=== PATIENT | male | born 1945 | race Caucasian/White ===

== ENCOUNTER 2017-04-14 16:51 | Inpatient (IN) ==
[2017-04-14] MEDS ORDERED: *HR* FentaNYL (PF) 100 MCG/2 ML VIAL IVP ONE (19:34)
--- NOTE | 2017-04-14 19:42 | Cardiology Consult Note ---
Date of Encounter: 04/14/17 Time of Encounter: 19:37 Assessment and Plan (1) Non-ST elevation AK (NSTEMI) Current Visit: Yes Status: Acute Posterior Ischemia, with recent EKG improved but ongoing CP. Troponin at 8 at [facility]. Discussion w patient/family: The assessment and plan as outlined above was discussed with the patient and/or family members who expressed understanding and agreement. All questions were answered. Thank you for involving us in the care of your patient. Please call with any questions. History of Present Illness Consult date: 04/14/17 Consult reason: NSTEMI Chief complaint: Chest pain History of present illness: Mr. Rosario is a 71 year old male with h/o CAD s/p CABG 2008 at [facility] with unknown grafts presents with CP and posterior EKG changes concerning for ischemia. EKG most recently shows mild improvement with improved ST's. Ongoing CP since 7 30 am today currently at 8/10 on IV NTG loaded with IV Heparin. Pain described as RSCP, heaviness radiating to his interscapular area. 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 He continues on plavix with a remote history of GI Bleed. R/B/A d/w pt and he agrees to proceed to an emergent LHC. Past Med Surg Social Fam HX - Past Medical History Medical history: aortic aneurysm, coronary artery disease, GERD, GI bleed, hypertension, myocardial infarction, peripheral artery disease, thyroid disease Psychiatric history: no psych history - Past Surgical History Surgical History: coronary bypass (CABG), LE Bypass - Social History Smoking Status: Current every day smoker Alcohol use: none Drug use: none Medications and Allergies Allopurinol [Zyloprim] 100 mg PO DAILY #0 01/16/15 [History] Aspirin Enteric Coated [Aspirin EC] 81 mg PO DAILY 01/16/15 [History] Fluticasone Propionate Nasal [Flonase] 2 spray NS DAILY 01/16/15 [History] Ipratropium/Albuterol Neb [Duoneb] 2.5 ml IH Q6HR 01/16/15 [History] Isosorbide MONOnitrate (24 HR) [Imdur] 60 mg PO DAILY #0 01/16/15 [History] clonazePAM [Klonopin] 0.5 mg PO HS #0 01/16/15 [History] Levothyroxine [Synthroid] 75 mcg PO 0630 #0 01/17/15 [History] Montelukast [Singulair] 10 mg PO DAILY 01/17/15 [History] Nitroglycerin 0.4 mg SL Q5M PRN #0 01/17/15 [History] Oxycodone HCl/Acetaminophen [Percocet 10-325 mg Tablet] 1 each PO Q6H PRN #0 [History] Pregabalin [Lyrica] 150 mg PO BID #0 01/17/15 [History] Atorvastatin [Lipitor] 40 mg PO HS 05/17/16 [History] Clopidogrel [Plavix] 75 mg PO DAILY 05/17/16 [History] Memantine HCl 10 mg PO BID 05/17/16 [History] Mirtazapine [Remeron] 30 mg PO HS 05/17/16 [History] Multivitamin [Multi-Day Vitamins] 1 each PO DAILY 05/17/16 [History] Pantoprazole Sodium [Protonix] 40 mg PO DAILY 05/17/16 [History] Trazodone HCl 100 - 200 mg PO HS 05/17/16 [History] 3 Allergy/AdvReac Type Severity Reaction Status Date / Time acetaminophen AdvReac Itching Verified 05/17/16 07:49 [From Darvocet-N] enalaprilat [From Vasotec] AdvReac Weakness Verified 01/16/15 23:43 propoxyphene AdvReac Itching Verified 05/17/16 07:49 [From Darvocet-N] simvastatin [From Zocor] AdvReac Fainting Verified 05/17/16 07:49 All Systems Review: A 10-system review of systems was performed and is negative for pertinent findings except as documented above in the HPI. Physical Examination General: Conversant, No Apparent Distress HEENT: Atraumatic, Normocephaly, Mucus Membranes Moist Neck: No JVD, Normal carotid pulses Cardiac: Reg Rate and Rhythm, Normal S1 and S2, No Murmur Lungs: Normal Breath Sounds, No Wheeze, Rales, Rhonchi Neuro: Alert and responsive, No focal deficits noted Abdomen: Soft, Non-Tender Skin: No rashes noted on visualized skin Musculoskeletal: No Chest Wall Tenderness Extremities: No Clubbing, No Cyanosis, No Edema, Normal Pulses Consult Discharge Plan - Plan Referrals: Minh Pierce MD [Primary Care Provider] -
[2017-04-14] MEDS ORDERED: Tirofiban 12.5 MG/250ML 12.5 MG/250 ML BAG IVC SCH (19:45)
[2017-04-14] MEDS ORDERED: 0.9 % Sodium Chloride 1,000 ML ONE ×2 (19:57→20:25)
[2017-04-14] MEDS ORDERED: Nitroglycerin 1,000 MCG/10 ML VIAL IV ONE (19:58)
[2017-04-14] MEDS ORDERED: Heparin 1,000 UNITS/500 mL NS 500 ML ONE (19:58)
[2017-04-14] MEDS ORDERED: *HR* Heparin 10,000 UNIT/10 ML VIAL ONE (19:58)
[2017-04-14 19:59] LABS: Basophils % 0.4 %; Eosinophils # 0.1 K/mcL (0.0-0.6); Hemoglobin 13.8 g/dL (12.9-16.9); Immature Granulocytes % 0.4 % (0-4); Lymphocytes # 1.8 K/mcL (0.6-4.6); Lymphocytes % 16.6 %; Mean Corpuscular HGB Conc 35.4 g/dL (31.6-35.5); Mean Corpuscular Hemoglobin 32.2 pg (28.0-33.3); Mean Corpuscular Volume 91.1 fL (83.0-100.0); Mean Platelet Volume 9.6 fL (9.4-12.4); Monocytes # 0.6 K/mcL (0.0-1.3); Monocytes % 5.4 %; Neutrophils # 8.4 K/mcL (1.6-8.9); Platelet Count 190 K/mcL (140-400); Red Blood Count 4.28 M/mcL (4.19-5.50); Red Cell Distribution Width 13.2 % (11.5-14.5); Segmented Neutrophils % 76.2 %
[2017-04-14 20:06] LABS: INR 1.2; Prothrombin Time 12.8 Seconds (9.4-12.1)
[2017-04-14] MEDS ORDERED: Ondansetron 4 MG/2 ML VIAL IVP PRN (20:06)
[2017-04-14] MEDS ORDERED: Naloxone 0.4 MG/ML INJ IVP PRN (20:06)
[2017-04-14 20:11] LABS: BUN/Creatinine Ratio 12 (6-26); Blood Urea Nitrogen 11 mg/dL (8-26); Calcium 9.3 mg/dL (8.6-10.8); Carbon Dioxide 27 mEq/L (19-29); Chloride 106 mEq/L (98-109); Glucose 117 mg/dL (70-99); Magnesium 1.8 mg/dL (1.6-2.6); Osmolality,Calculated 294 (280-300); Potassium 3.6 mEq/L (3.5-4.5); Sodium 142 mEq/L (136-145); eGFR For African Americans > 60 (> 60); eGFR For Non-African Americans > 60 (> 60)
--- NOTE | 2017-04-14 20:23 | Pre-Sedation Evaluation ---
Pre-sedation evaluation - Pre-sedation checklist Date of procedure: 04/14/17 Procedure: LHC H&P (including ROS) documented in medical record: Yes Previous reaction to sedatives/anesthetics: No Dietary Status: NPO after Midnight Dentition: dentures removed ASA Classification *see protocol: CLASS II-Mild systemic disease
[2017-04-14] MEDS ORDERED: *HR* FentaNYL (PF) 100 MCG/2 ML VIAL ONE (20:33)
[2017-04-14] MEDS ORDERED: *HR* Midazolam HCl 2 MG/2 ML VIAL ONE (20:33)
[2017-04-14] MEDS ORDERED: *HR* Nitroprusside 50 MG VIAL IVC ONE (20:36)
[2017-04-14] MEDS ORDERED: 0.9 % Sodium Chloride 500 ML ONE (20:39)
[2017-04-14] MEDS ORDERED: Albuterol 2.5 MG/3 ML NEBULIZER IH PRN (20:43)
--- NOTE | 2017-04-14 22:01 | Invasive Diagnostic Lab Proc ---
Name: Juan Diego Rosario Date of Study: 04/14/2017 Date: 1945 Ht: 71.7in Medical Record#: [id number] Age: 71 Wt: 181.88lb Gender: Male BSA: 2.04 Order #: [id number] BMI: 24.91 Physicians Procedure Physician: Julito Conner MD Referring MD: Referring MD: Staff Name Position Time In EmyCordelia RN Monitor 08:32 PM Raj Ko RN Scrub 08:32 PM Jose Mcnair RN Playroom Attendant 08:32 PM Andi Wesley RN Playroom Attendant 08:32 PM Indications Indication Non-Stemi Procedures Performed Procedure L HRT ARTERY/VENTRICLE ANGIO PRQ CARD RANDEE STENT W/ANGIO 1 VSL Pre-Procedure Checklist Informed consent is complete signed and on chart. H&P is on chart. ID band is on and ID verified with patient. Patient NPO for procedure The procedure was described for the patient and questions were answered. Blood Pressure: 152/79 ECG is on chart. Rhythm: NSR Plan of Care Patient will tolerate the procedure without complications. Adequate level of comfort will be maintained. Hemodynamics will remain stable Patient will recover from procedure without complications. Respiratory function will be maintained. Cardiac rhythm will remain stable. Patient temperature will be maintained. Patient and/or family have verbalized understanding of the procedure. Patient Education Intravenous Access Time IV Size Location DC'd Fluid/Drip Rate Units RN 08:20 PM 20g 1 1/4" Patent On Arrival Lt Hand Nitroglycerin 08:20 PM 20g 1 1/4" Patent On Arrival Rt Antecubital 0.9NaCl Allergies VASOTEC, DARVOCET, ZOCOR simvastatin propoxyphene Enalapril acetaminophen enalaprilat Darvocet Zocor Steroids Vital Signs Time BP (mmHg) HR (bpm) O2 Sat. RR (bpm) LOC 08:36 PM / % 5 = Fully awake and oriented or at pre-proc level 08:36 PM / % 4 = Oriented but drowsy 08:51 PM / % 4 = Oriented but drowsy 09:06 PM / % 4 = Oriented but drowsy 09:21 PM / % 4 = Oriented but drowsy 08:31 PM 152 / 79 85 97 % 11 08:35 PM 149 / 96 69 100 % 18 08:40 PM 146 / 96 89 100 % 26 08:45 PM 143 / 101 85 99 % 21 08:50 PM 152 / 91 88 98 % 14 08:56 PM 146 / 95 89 98 % 20 09:00 PM 146 / 98 90 98 % 15 09:05 PM 147 / 97 67 99 % 16 09:11 PM 154 / 93 83 98 % 23 09:16 PM 150 / 103 87 84 % 15 09:21 PM 145 / 96 80 99 % 17 09:26 PM 134 / 95 77 100 % 9 09:30 PM 130 / 99 88 87 % 14 09:36 PM 140 / 85 % Procedural Medications Time Medication Dose Units Method Given By 08:32 PM Oxygen 2 L/min nasal cannula Andi Wesley RN 08:34 PM Versed 1 mg Intravenous Jose Mcnair RN 08:34 PM Fentanyl 25 mcg Intravenous Jose Mcnair RN 08:36 PM Nitroglycerin 55 mcg/min Intravenous 08:39 PM Lidocaine 2% 15 ml Subcutaneous Julito Conner MD 08:41 PM Aggrastat 12.5mg/250ml 15 ml/hr Intravenous Started on the floor 08:53 PM Heparin 3000 units Intravenous Jose Mcnair RN 09:30 PM Plavix 75 mg Orally Jose Mcnair RN ASA Classification: CLASS III- Severe systemic disease (i.e. prior AMI, diabetes with vascular complications, morbid obesity) Ciaran Score Preprocedure Postprocedure Activity 2- Moves 4 extremities sustained head lift Activity 2- Moves 4 extremities sustained head lift Circulation 2- SBP +/= 20 points of pre-anesthetic level Circulation 2- SBP +/= 20 points of pre-anesthetic level Consciousness 2- Awake and alert oriented x 3 Consciousness 2- Awake and alert oriented x 3 O2 Saturation 2- Able to maintain O2 satruation of 92% on room air O2 Saturation 2- Able to maintain O2 satruation of 92% on room air Respiratory 2- Able to deep breathe and cough well Respiratory 2- Able to deep breathe and cough well Total Score 10 Total Score 10 Contrast Agent: Isovue Diagnostic Contrast: 212 ml Total Contrast: 212 ml Fluoro Dose: 1154 mGy Activated Clotting Time Time Seconds to Clot 08:52 PM 166 09:35 PM 247 Procedure Log Time Note Enter By 08:20 PM Sam [facility] astrid [facility] PM Sign in performed according to hospital policy. [email or web address] 08:20 PM Pt arrived to cath lab manager 2 at 20:20 [facility] PM [facility] 20:[facility] PM Procedure start [facility]: [facility] 08: PM CathStat 08:28 PM Case Start 08:28 PM Vitals capture started with the following parameters, Patient=Adult, Interval=5 min, Initial Nhehnzzq=696 mmHg, Deflation Rate=5 mmHg, Cuff placed on Right Arm 08:30 PM Vitals capture started with the following parameters, Patient=Adult, Interval=5 min, Initial Bzemwyyw=853 mmHg, Deflation Rate=5 mmHg, Cuff placed on Right Arm 08:31 PM HR=85 bpm, QKQF=020/79 mmhg, SpO2=97.0 %, Resp=11 B/min, Comment=sb 08:32 PM Time: 20:32 Oxygen on at 2 L/min per nasal cannula by [facility] 08[facility] PM Cordelia Quevedo RN Position: Monitor [facility]: 20:[facility] PM Raj Ko RN Position: Scrub Time in: 20:32 [facility] 08[facility] PM Jose Mcnair RN Position: Playroom Attendant Time in: 20:32 [facility] PM Andi Wesley RN Position: Playroom Attendant Time in: 20:32 [facility] 08:32 PM Case Delayed No, in patient [facility] 08:33 PM Patient charges- Angio tray pack, Navilyst 3mm J, Pulse Oximetry and ACIST tubing and transducer [facility] 08:33 PM Hair removed from procedure site in procedure lab using clippers. Bilateral groin prepped with Chloraprep by Cordelia Quevedo RN, safety strap applied then patient was draped. Skin intact. [facility] 08:34 PM Time: 20:34 Versed 1 mg Intravenous Given by Jose [facility]air RN [facility] 08:35 PM Time: 20:34 Fentanyl 25 mcg Intravenous Given by Jose Mcnair RN [facility] 08:35 PM HR=69 bpm, HPON=444/96 mmhg, PcM3=067.0 %, Resp=18 B/min, Comment=sb 08:36 PM Patient arrived at 20:36 with Nitroglycerin Intravenous drip @ 55 mcg/min [facility] 08[facility] PM Time: 20:36 Patient comfortable and pain free: no. Chest pain 8/10 pt received medication jcallihan 08:36 PM Time: 20:36LOC: 5 = Fully awake and oriented or at pre-proc level [email or web address] 08:36 PM Clinical Presentation: Non-STEMI jcallihan 08:36 PM Time out performed according to hospital policy jcallihan 08:39 PM Time: 20:39 15 ml Lidocaine 2% to right groin Subcutaneous Given by MD pricila Berg 08:40 PM HR=89 bpm, VZQE=031/96 mmhg, SsY0=335.0 %, Resp=26 B/min, Comment=sb 08:41 PM patient arrived from floor with this medication, Time: 20:20 Aggrastat 12.5mg/250ml 15 ml/hr Intravenous Given by Started on the floor Matias pump jctricia 08:45 PM HR=85 bpm, ZGAC=575/101 mmhg, SpO2=99.0 %, Resp=21 B/min, Comment=nsr 08:47 PM Access obtained by percutaneous puncture. 6Fr 10cm Terumo [place] sheath placed in right Femoral artery. [id number] scoates 08:47 PM 5Fr FL 4 catheter inserted over the wire DNC scoates 08:49 PM Catheter removed scoates 08:50 PM 5Fr FL5 catheter inserted over the wire [id number] scoates 08:50 PM HR=88 bpm, NJOQ=054/91 mmhg, SpO2=98.0 %, Resp=14 B/min, Comment=nsr 08:51 PM Recorded Pressure: Ao, HR=78, Condition=Condition 1 (Aorta) Ao 131/82/105 08:51 PM LCA angiography performed in multiple views. scoates 08:51 PM Catheter removed scoates 08:51 PM Time: 20:36 Patient comfortable and pain free: Yes, pt sleeping at this time scoates 08:51 PM Time: 20:36LOC: 4 = Oriented but drowsy scoates 08:51 PM 5Fr FR 4 catheter inserted over the wire DNC scoates 08:52 PM At 20:52 the ACT was 166 seconds. scoates 08:53 PM Time: 20:53 Heparin 3000 units Intravenous Given by Jose Mcnair RN scoates 08:56 PM HR=89 bpm, KBEY=667/95 mmhg, SpO2=98.0 %, Resp=20 B/min, Comment=nsr 08:57 PM SVG to the RPDA, OM and Diag angio performed in multiple views. All grafts occluded. scoates 08:57 PM RCA angiography performed in multiple views. scoates 08:58 PM repostition wire to WRIGHT scoates 09:00 PM HR=90 bpm, YNXC=858/98 mmhg, SpO2=98.0 %, Resp=15 B/min, Comment=nsr 09:01 PM Left WILMER to the LAD angio performed in multiple views. scoates 09:01 PM 5Fr Pigtail catheter inserted over the wire DNC scoates 09:02 PM Recorded Pressure: LV, HR=87, Condition=Condition 1 (Left Ventricle) LV 150/27/34 09:02 PM Catheter selectively placed in left ventricle scoates 09:03 PM Bolus angiogram of left Ventricle complete: 10 ml/sec for a total of 20 mls scoates 09:03 PM Recorded Pressure: LV, Ao, HR=77, Condition=Condition 1 (Left Ventricle) LV 153/9/15, (Aorta) Ao 148/73/106 09:04 PM Catheter removed scoates 09:04 PM PCI Status Urgent scoates 09:04 PM PCI Indication: PCI for high risk Non-STEMI or unstable angina scoates 09:05 PM 6Fr XB3.5 [place] Bright-Tip guide catheter was used to cannulate the PCI vessel successfully. reused? No scoates 09:05 PM HR=67 bpm, GXSF=405/97 mmhg, SpO2=99.0 %, Resp=16 B/min, Comment=nsr 09:06 PM .014 [place] 180cm guide wire across target lesion- successful. reused? No scoates 09:06 PM Time: 20:51 Patient comfortable and pain free: Yes scoates 09:06 PM Time: 20:51LOC: 4 = Oriented but drowsy scoates 09:07 PM Lesion found in Proximal LAD. Pre Stenosis: 100 Pre JEWEL Flow: scoates 09:07 PM Lesion found in Proximal Circumflex. Pre Stenosis: 80 Pre JEWEL Flow: 3: Complete and Brisk Flow/Perfusion scoates 09:08 PM Lesion found in Proximal RCA. Pre Stenosis: 100 Pre JEWEL Flow: scoates 09:11 PM HR=83 bpm, JBCF=965/93 mmhg, SpO2=98.0 %, Resp=23 B/min, Comment=nsr 09:13 PM 2.0 mm x 12 mm Emerge Monorail balloon across target lesion- successful. reused? No scoates 09:14 PM Balloon inflated @ 6 edgardo for 13 seconds scoates 09:14 PM Balloon inflated @ 8 edgardo for 15 seconds scoates 09:14 PM Balloon inflated @ 8 edgardo for 15 seconds scoates 09:14 PM Balloon catheter removed intact. scoates 09:15 PM 2.5 mm x 12 mm Emerge Monorail balloon across target lesion- successful. reused? No scoates 09:15 PM Recorded Pressure: Ao, HR=83, Condition=Condition 1 (Aorta) Ao 132/72/100 09:16 PM HR=87 bpm, IXBP=697/103 mmhg, SpO2=84.0 %, Resp=15 B/min 09:17 PM Balloon inflated @ 8 edgardo for 6 seconds scoates 09:18 PM Balloon inflated @ 8 edgardo for 14 seconds scoates 09:18 PM Balloon inflated @ 8 edgardo for 15 seconds scoates 09:18 PM Balloon catheter removed intact. scoates 09:20 PM 3.0mm x 20mm Synergy drug-eluting stent across target lesion- successful Lot #[id number] scoates 09:21 PM HR=80 bpm, MLWL=055/96 mmhg, SpO2=99.0 %, Resp=17 B/min, Comment=nsr 09:21 PM Stent deployed @ 9 edgardo for 11 seconds scoates 09:21 PM Time: 21:06LOC: 4 = Oriented but drowsy scoates 09:22 PM Time: 21:06 Patient comfortable and pain free: Yes scoates 09:22 PM Stent balloon reinflated @ 13 edgardo for 13 seconds scoates 09:22 PM Recorded Pressure: Ao, HR=82, Condition=Condition 1 (Aorta) Ao 118/85/101 09:23 PM Balloon catheter removed intact. scoates 09:24 PM 3.0 mm x 15mm NC Emerge balloon across target lesion- successful. reused? No scoates 09:25 PM Balloon inflated @ 16 edgardo for 11 seconds scoates 09:25 PM Balloon inflated @ 11 edgardo for 15 seconds scoates 09:26 PM HR=77 bpm, AOJI=263/95 mmhg, IcQ2=700.0 %, Resp=9 B/min, Comment=nsr 09:26 PM Balloon inflated @ 15 edgardo for 8 seconds scoates 09:28 PM Patient is stating that his chest pain is now a zero scoates 09:28 PM Balloon catheter removed intact. scoates 09:28 PM Guide wire removed intact. scoates 09:29 PM Guide catheter removed intact. scoates 09:30 PM Procedure completed at 21:30 scoates 09:30 PM Time: 21:30 Plavix 75 mg Orally Given by Jose Mcnair RN scoates 09:30 PM HR=88 bpm, BFGA=472/99 mmhg, SpO2=87.0 %, Resp=14 B/min, Comment=nsr 09:33 PM Sign out completed: Radiation Dose 1154 mGy Fluoro Time: 14 Isovue 370 - 200ml contrast 212 ml given by Julito Conner MD. Complications: NoneCardiac Rehab Consult needed: YesConfirmed administered medications: Yes scoates 09:33 PM Isovue 370 - 200ml,1 Bottle(s) used. scoates 09:33 PM Sheath left in place to be pulled on floor/holding area scoates 09:33 PM Post ECG NSR scoates 09:33 PM 21:33 Post Pulses Bilateral DP & PT Doppler scoates 09:35 PM At 21:35 the ACT was 247 seconds. scoates 09:35 PM Information taught Cardiac Cath and PCI scoates 09:36 PM UPVK=727/85 mmhg, Comment=nsr 09:36 PM Education needs Procedure and Responsibilities of Patient in Care scoates 09:36 PM Learning barriers :None scoates 09:36 PM Education Methods Verbal scoates 09:36 PM Education evaluation Able to repeat information scoates 09:37 PM Time: 21:22 Patient comfortable and pain free: Yes scoates 09:37 PM Time: 21:21LOC: 4 = Oriented but drowsy scoates 09:37 PM Site status No bleeding/hematoma - Rt Groin as reported by Raj Ko RN at 21:37 scoates 09:37 PM Opsite applied scoates 09:37 PM Plavix, Effient or Brilinta given Yes scoates 09:37 PM Delay to floor No scoates 09:38 PM Family not here at this time. Patient doesnt want us to call anyone scoates 09:39 PM Complications: None scoates 09:39 PM Fluoro Time: 14 scoates 09:39 PM Isovue 370 - 200ml contrast 212 ml given by Julito Conner MD. scoates 09:39 PM Radiation Dose 1154 mGy scoates 09:45 PM voided 275mls scoates 09:48 PM Patient out of room: 21:48 scoates 09:48 PM Report given to Manju LEYVA Pt taken to 2N Room #9. 21:47 scoates 09:54 PM Coronary Dominance: right scoates Complications Complication None None Hemodynamics Pressures Site Systolic/A Wave Diastolic/V Wave Mean AO 131 82 105 LV 150 27 34 LV 153 9 15 AO 148 73 106 AO 132 72 100 AO 118 85 101 Post Procedure Information Rhythm: NSR Post procedural instructions were given Closure Device Time Device Success/Fail 04/14/2017 9:40:00 PM Manual Compression - sheath to be pulled on the floor Site Checks Time Location Status Staff Sheath In? Note 09:37 PM Rt Groin No bleeding/hematoma Raj Ko RN Pulses Time Site Pre-Procedure Post-Procedure Note 04/14/2017 8:49:00 PM Bilateral DP & PT Doppler 9:33:00 PM Bilateral DP & PT Doppler Updated by Jose Mcnair RN on 04/14/2017 9:54:28 PM electronically signed on 04/14/2017 9:55:22 PM with status of Final
--- NOTE | 2017-04-14 22:14 | Internal Med History&Physical ---
Date of Encounter: 04/14/17 Time of Encounter: 22:00 Assessment and Plan (1) Non-ST elevation [place] (NSTEMI) Current visit: Yes Status: Acute Non-ST elevation NJ S/p emergent LHC: Severe one-vessel CAD successful PTCA/RANDEE to proximal circumflex, 1 of 4 patent bypass grafts collaterals from circumflex to distal RCA LVEF 60% Continue Plavix, Lipitor, Nitro PRN, BB, IV Morphine PRN, Aggrastat, Imdur Aspirin was discontinued in the past due to h/o GI bleed EKG - sinus rhythm with PACs, nonspecific ST-T changes Troponin - 13.10 Follow cardiology recommendations Cardiac telemetry, labs in a.m., monitor closely (2) Coronary artery disease Current visit: Yes Status: Chronic Coronary artery disease s/p CABG (2008) and stents Continue Plavix, Lipitor, Nitro PRN Patient states he has been taken off Aspirin due to h/o GI bleed Qualifiers: Coronary Disease-Associated Artery/Lesion type: [place] artery [place] vs. transplanted heart: [place] heart Associated angina: with unstable angina Qualified Code(s): I25.110 - Atherosclerotic heart disease of [place] coronary artery with unstable angina pectoris (3) Peripheral vascular disease Current visit: Yes Status: Chronic Chronic PVD with h/o AAA repair - diminished distal pulses bilateral lower legs Patient states he has not had any stents or surgeries to lower extremities Continue Plavix, Lipitor (4) Hypertension Current visit: Yes Status: Chronic Essential hypertension, uncontrolled, monitor Continue home dose of Imdur, continue IV NTG Qualifiers: Hypertension type: essential hypertension Qualified Code(s): I10 - Essential (primary) hypertension (5) Depression Current visit: Yes Status: Chronic Anxiety with depression, stable Patient is on Remeron, Trazodone and Klonopin at home Qualifiers: Depression Type: major depressive disorder Major depression episode severity: mild Qualified Code(s): F33.0 - Major depressive disorder, recurrent , mild (6) Hypothyroidism Current visit: Yes Status: Chronic Continue home dose of Synthroid Qualifiers: Hypothyroidism type: unspecified Qualified Code(s): E03.9 - Hypothyroidism , unspecified (7) Dementia Current visit: Yes Status: Chronic Mild Alzheimer's dementia without behavioral disturbances Continue home dose of Namenda Qualifiers: Dementia type: Alzheimer's disease Alzheimer's disease onset: early-onset Dementia behavioral disturbance: without behavioral disturbance Qualified Code(s): G30.0 - Alzheimer's disease with early onset; F02.80 - Dementia in other diseases classified elsewhere without behavioral disturbance; F02.80 - Dementia in other diseases classified elsewhere without behavioral disturbance; F02.80 - Dementia in other diseases classified elsewhere without behavioral disturbance (8) Tobacco abuse Current visit: Yes Status: Chronic Patient states he has been smoking about 3-4 cigarettes daily over the past 6 months States he has cut down from half a pack of cigarettes daily for the past 55 years Counseled about cessation, declined nicotine patch (9) DVT prophylaxis Current visit: Yes Status: Acute Patient is currently on Aggrastat Start Heparin subcutaneous in a.m. Internal Medicine - H&P: HPI Chief complaint: Chest pain Admitted From: Emergency Dept Plans for Post Hospital Care: Home History of present illness: Mr. Rosario is a 71 year old male with past medical history of CAD status post CABG and stents, hypertension, dementia, hypothyroidism, hyperlipidemia, PVD, AAA status post repair, anxiety, depression and h/o GI bleed. Patient presents as a transfer from [facility] for chest pain. Examined in the room. Patient is awake and alert. Not in distress. Able to provide all history. No family members at bedside. Patient states he developed chest pain at around 7 AM this morning. Patient states he was at home when the pain started. He describes the pain as dull pressure and tightness. Radiating to his neck. Patient states the chest pain was central and sometimes generalized. Rates it 7/10. Patient also had associated shortness of breath. He denies palpitations or dizziness or headache. Patient denies fever or abdominal pain or vomiting. No aggravating or alleviating factors. No other associated symptoms. No other acute complaints. [facility] had requested hospitalist service for transfer for chest pain and non- STEMI. Troponin was initially 8 and then 13.1, with ongoing chest pain. Cardiology was consulted. Patient underwent emergent LHC. Patient had successful PTCA/DS to proximal circumflex. Status post CABG 1 of 4 patent bypass grafts. Patient is currently on IV NTG and Aggrastat. Patient has been explained about his condition and plan of care in detail. He understood and agreed. No unanswered questions. CODE STATUS full code. Past Med Surg Social Fam HX - Past Medical History Medical history: aortic aneurysm, coronary artery disease, GERD, GI bleed, hypertension, myocardial infarction, peripheral artery disease, thyroid disease Psychiatric history: no psych history - Past Surgical History Surgical History: coronary bypass (CABG), LE Bypass - Social History Smoking Status: Current every day smoker Alcohol use: none Drug use: none Internal Medicine - H&P: Meds Allopurinol [Zyloprim] 100 mg PO DAILY #0 01/16/15 [History] Aspirin Enteric Coated [Aspirin EC] 81 mg PO DAILY 01/16/15 [History] Fluticasone Propionate Nasal [Flonase] 2 spray NS DAILY 01/16/15 [History] Ipratropium/Albuterol Neb [Duoneb] 2.5 ml IH Q6HR 01/16/15 [History] Isosorbide MONOnitrate (24 HR) [Imdur] 60 mg PO DAILY #0 01/16/15 [History] clonazePAM [Klonopin] 0.5 mg PO HS #0 01/16/15 [History] Levothyroxine [Synthroid] 75 mcg PO 0630 #0 01/17/15 [History] Montelukast [Singulair] 10 mg PO DAILY 01/17/15 [History] Nitroglycerin 0.4 mg SL Q5M PRN #0 01/17/15 [History] Oxycodone HCl/Acetaminophen [Percocet 10-325 mg Tablet] 1 each PO Q6H PRN #0 [History] Pregabalin [Lyrica] 150 mg PO BID #0 01/17/15 [History] Atorvastatin [Lipitor] 40 mg PO HS 05/17/16 [History] Clopidogrel [Plavix] 75 mg PO DAILY 05/17/16 [History] Memantine HCl 10 mg PO BID 05/17/16 [History] Mirtazapine [Remeron] 30 mg PO HS 05/17/16 [History] Multivitamin [Multi-Day Vitamins] 1 each PO DAILY 05/17/16 [History] Pantoprazole Sodium [Protonix] 40 mg PO DAILY 05/17/16 [History] Trazodone HCl 100 - 200 mg PO HS 05/17/16 [History] 3 Allergy/AdvReac Type Severity Reaction Status Date / Time acetaminophen AdvReac Itching Verified 05/17/16 07:49 [From Darvocet-N] enalaprilat [From Vasotec] AdvReac Weakness Verified 01/16/15 23:43 propoxyphene AdvReac Itching Verified 05/17/16 07:49 [From Darvocet-N] simvastatin [From Zocor] AdvReac Fainting Verified 05/17/16 07:49 All Systems PM: A 10-system review of systems was performed and is negative for pertinent findings except as documented above in the HPI. - Constitutional Constitutional: fatigue, no fever(s), no weakness - EENT Eyes: no blurry vision - Cardiovascular Cardiovascular ROS IM: chest pain, dyspnea, dyspnea on exertion, no claudication , no edema, no lightheadedness, no orthopnea, no palpitations, no syncope - Respiratory Respiratory: dyspnea, dyspnea on exertion, no cough, no hemoptysis, no wheezing , no chest congestion - Gastrointestinal Gastrointestinal: no abdominal pain, no bloating, no cramping, no diarrhea, no hematemesis, no hematochezia, no loose stools, no nausea, no vomiting - Genitourinary Genitourinary ROS male: no dysuria - Neurological Neurological ROS: no abnormal gait, no confusion, no dizziness, no focal weakness, no loss of vision, no numbness, no tingling - Constitutional General appearance: Present: cooperative, A&O X 3, pleasant, no acute distress, answers questions appropriately - Head Head exam: Present: atraumatic - Eye Eye exam: Present: EOMI - ENT ENT exam: Present: mucous membranes dry - Respiratory Respiratory exam: Present: CTAB. Absent: chest wall tenderness, rales, respiratory distress, rhonchi, wheezes, tachypnea - Cardiovascular Cardiovascular exam: Present: RRR, +S1, +S2 - GI/Abdominal GI/Abdominal exam: Present: soft (Obese). Absent: distended, firm, guarding, tenderness - Extremities Exam Extremities exam: Present: radial pulses palpable and symmetrical. Absent: calf tenderness, cyanotic, pedal edema Additional comments: Left femoral sheath in place. Patient does have PVD and he has diminished distal pulses bilaterally. Both feet are warm to touch. - Neurological Exam Neurological exam: Present: alert, oriented X3, no focal deficits. Absent: facial droop, speech deficit Additional comments: Patient does have mild dementia Internal Med - H&P Results - Labs CBC & Chem 7: 04/14/17 19:53 04/14/17 19:53 Labs: Short CBC 04/14/17 Range/Units 19:53 WBC 11.0 (4.3-11.1) K/mcL Hgb 13.8 (12.9-16.9) g/dL Hct 39.0 (37.5-50.1) % Plt Count 190 (140-400) K/mcL Neutrophils # 8.4 (1.6-8.9) K/mcL BMP 04/14/17 19:53 Sodium 142 Potassium 3.6 Chloride 106 Carbon Dioxide 27 BUN 11 Creatinine 0.91 Glucose 117 H Calcium 9.3 Cardiac Enzymes 04/14/17 Range/Units 19:53 Troponin I 13.10 H* (0-0.03) ng/mL
[2017-04-14] MEDS: Ipratropium/Albuterol Neb 3 ML IH SCH (22:24)
[2017-04-14] MEDS ORDERED: *HR* LORazepam 2 MG/ML VIAL IVP ONE (23:21)
[2017-04-15] MEDS ORDERED: *HR* Atropine Sulfate 1 MG/10 ML SYRINGE ONE (00:51)
[2017-04-15] MEDS ORDERED: Nitroglycerin 25 MG/250 ML INFUS..BTL IVC ONE (01:04)
[2017-04-15] MEDS ORDERED: Nitroglycerin 25 MG/250 ML INFUS..BTL IVC SCH (01:15)
[2017-04-15 02:58] LABS: Basophils % 0.3 %; Eosinophils # 0.1 K/mcL (0.0-0.6); Eosinophils % 0.5 %; Hematocrit 37.6 % (37.5-50.1); Hemoglobin 13.1 g/dL (12.9-16.9); Immature Granulocytes % 0.3 % (0-4); Lymphocytes # 1.3 K/mcL (0.6-4.6); Lymphocytes % 12.4 %; Mean Corpuscular HGB Conc 34.8 g/dL (31.6-35.5); Mean Corpuscular Hemoglobin 31.8 pg (28.0-33.3); Mean Corpuscular Volume 91.3 fL (83.0-100.0); Mean Platelet Volume 9.6 fL (9.4-12.4); Monocytes # 0.6 K/mcL (0.0-1.3); Monocytes % 6.1 %; Neutrophils # 8.3 K/mcL (1.6-8.9); Platelet Count 188 K/mcL (140-400); Red Blood Count 4.12 M/mcL (4.19-5.50); Red Cell Distribution Width 13.2 % (11.5-14.5); Segmented Neutrophils % 80.4 %
[2017-04-15] MEDS: Ipratropium/Albuterol Neb 3 ML IH SCH ×4 (04:35→22:41)
[2017-04-15] MEDS: Multivit/Ca/Min/Fe/FA 1 TAB TABLET PO SCH (07:29)
[2017-04-15] MEDS: Aspirin Enteric Coated 81 MG Tablet PO SCH (08:31)
[2017-04-15] MEDS: Isosorbide MONOnitrate (24 HR) 60 MG TAB.ER.24H PO SCH (08:32)
[2017-04-15] MEDS: Pregabalin 75 MG CAPSULE PO SCH ×2 (08:32→21:08)
--- NOTE | 2017-04-15 08:33 | Internal Med Progress Note ---
Date of Encounter: 04/15/17 Time of Encounter: 08:10 - Constitutional Vitals: Temp Pulse Resp BP Pulse Ox 97.1 F L 88 16 159/93 96 04/15/17 07:33 04/15/17 07:33 04/15/17 07:33 04/15/17 07:33 04/15/17 07:33 General appearance: Present: cooperative, A&O X 3, pleasant, no acute distress, answers questions appropriately Internal Medicine: Result - Labs CBC & Chem 7: 04/15/17 02:28 04/14/17 19:53 Labs: Short CBC 04/14/17 04/15/17 Range/Units 19:53 02:28 WBC 11.0 10.4 (4.3-11.1) K/mcL Hgb 13.8 13.1 (12.9-16.9) g/dL Hct 39.0 37.6 (37.5-50.1) % Plt Count 190 188 (140-400) K/mcL Neutrophils # 8.4 8.3 (1.6-8.9) K/mcL BMP 04/14/17 19:53 Sodium 142 Potassium 3.6 Chloride 106 Carbon Dioxide 27 BUN 11 Creatinine 0.91 Glucose 117 H Calcium 9.3 Cardiac Enzymes 04/14/17 04/15/17 Range/Units 19:53 02:28 Troponin I 13.10 H* 35.02 H* (0-0.03) ng/mL - ABG Interpretation ABG results: PT/INR, D-dimer PT 12.8 Seconds (9.4-12.1) H 04/14/17 19:53 - VTE Documentation of Mechanical Device: Graduated compression elastic hosiery Consult Discharge Plan - Plan Referrals: Minh Pierce MD [Primary Care Provider] -
[2017-04-15] MEDS ORDERED: Pantoprazole 40 MG VIAL IVP SCH (09:00)
[2017-04-15] MEDS: Fluticasone Propionate Nasal 50 MCG/SPRAY BOTTLE NS SCH (09:05)
--- NOTE | 2017-04-15 12:25 | Cardiology Progress Note ---
Date of Encounter: 04/15/17 Time of Encounter: 10:45 Assessment and Plan (1) Non-ST elevation [place] (NSTEMI) Current Visit: Yes Status: Acute Per cardiology: -S/p [facility] yesterday with 100% LAD stenosis, WRIGHT to LAD patent, 80% proximal circumflex stenosis with RANDEE placed, 100% Proximal RCA, SVG to OM occluded, SVG to circumflex occluded, SVG to RCA occluded. -Reports 3/10 chest pain that is worsened with palpation. On nitro drip at 25mcg /min. -On asa, statin, beta corrie, imdur, and plavix. Educated on importance of dual anti-platelet therapy uninterrupted for at least one year. -TTE pending. -ECG today with no acute ischemic changes. -Right groin access site without hematoma. -Patient's significant other and [facility], called requesting to speak with cardiology. I personally spoke to Marnie as well as , at this time patient and significant other have requested transfer to [place] for further evaluation. Discussed with primary service. -Will have films made of [facility] and sent with patient. -Will continue to monitor while patient is at [facility]. Discussion w patient/family: The assessment and plan as outlined above was discussed with the patient and/or family members who expressed understanding and agreement. All questions were answered. Thank you for involving us in the care of your patient. Please call with any questions. Discussed and reviewed with . Subjective Principal diagnosis: NSTEMI Interval history: Patient states has 3/10 chest pain now, states is worse with palpation. Denies shortness of breath. Objective Vital Signs, Last 4 Hours Temp Pulse Resp BP Pulse Ox 04/15/17 11:51 94 04/15/17 11:48 98.7 F 75 20 140/86 90 04/15/17 10:32 122/98 04/15/17 09:07 148/90 General: Conversant, No Apparent Distress HEENT: Atraumatic, Normocephaly, Mucus Membranes Moist Neck: No JVD, Normal carotid pulses Cardiac: Reg Rate and Rhythm, Normal S1 and S2, No Murmur Lungs: Normal Breath Sounds, No Wheeze, Rales, Rhonchi Neuro: Alert and responsive, No focal deficits noted Abdomen: Soft, Non-Tender Skin: No rashes noted on visualized skin, Other (Right groin access site without hematoma. ) Musculoskeletal: Other (Chest pain reproducable with palpation. ) Extremities: No Clubbing, No Cyanosis, No Edema, Normal Pulses Results 04/15/17 02:28 04/14/17 19:53 Lab Results Active Medications Albuterol Sulfate (Proventil Neb) 2.5 mg IH Q2H PRN PRN Reason: Shortness Of Breath/Wheezing Stop: 10/14/17 20:44 Albuterol/Ipratropium (Duoneb) 3 ml IH QIDR MANDIE Stop: 10/14/17 23:01 Last Admin: 04/15/17 11:13 Dose: 3 ml Albuterol/Ipratropium (Duoneb) 3 ml IH [id number] PRN PRN Reason: Shortness Of Breath/WHEEZE Stop: 10/15/17 04:14 Aspirin (Aspirin Ec) 81 mg PO DAILY [facility] Stop: 10/15/17 09:01 Last Admin: 04/15/17 08:31 Dose: 81 mg Atorvastatin Calcium (Lipitor) 40 mg PO HS MANDIE Stop: 10/15/17 21:01 Clonazepam (Klonopin) 0.5 mg PO HS [facility] Stop: 10/15/17 21:01 Clopidogrel Bisulfate (Plavix) 75 mg PO DAILY [facility] Stop: 10/15/17 09:01 Last Admin: 04/15/17 07:29 Dose: 75 mg Fluticasone Propionate (Flonase) 100 mcg NS DAILY MANDIE PRN Reason: Protocol Stop: 10/15/17 09:01 Last Admin: 04/15/17 09:05 Dose: 100 mcg Nitroglycerin (Nitroglycerin Premix 25 Mg/250 Ml) 25 mg in 250 mls @ 3 mls/hr IVC .Q24H MANDIE; 5 MCG/MIN PRN Reason: Protocol Stop: 10/15/17 01:16 Last Titration: 04/15/17 02:23 Dose: 25 mcg/min, 15 mls/hr Isosorbide Mononitrate (Imdur) 60 mg PO DAILY MANDIE Stop: 10/15/17 09:01 Last Admin: 04/15/17 08:32 Dose: 60 mg Levothyroxine Sodium (Synthroid) 75 mcg PO 0630 MANDIE Stop: 06/11/18 06:31 Last Admin: 04/15/17 06:58 Dose: 75 mcg Memantine (Namenda) 10 mg PO BID [facility] Stop: 10/15/17 09:01 Last Admin: 04/15/17 07:29 Dose: 10 mg Metoprolol Tartrate (Lopressor) 25 mg PO BID [facility] Stop: 10/15/17 09:01 Last Admin: 04/15/17 06:58 Dose: 25 mg Mirtazapine (Remeron) 30 mg PO HS [facility] Stop: 10/15/17 21:01 Montelukast Sodium (Singulair) 10 mg PO DAILY [facility] Stop: 10/15/17 09:01 Last Admin: 04/15/17 07:29 Dose: 10 mg Multivitamins/Calcium (Thera M Plus) 1 tab PO DAILY [facility] Stop: 10/15/17 09:01 Last Admin: 04/15/17 07:29 Dose: 1 tab Naloxone HCl (Narcan) 0.4 mg IVP Q2MIN PRN PRN Reason: Opioid Reversal Stop: 10/14/17 20:07 Nitroglycerin (Nitroglycerin) 0.4 mg SL Q5M PRN PRN Reason: Chest Pain Stop: 10/15/17 04:14 Omeprazole (Prilosec) 40 mg PO DAILY [facility] Stop: 10/15/17 09:01 Last Admin: 04/15/17 08:32 Dose: 40 mg Ondansetron HCl (Zofran) 4 mg IVP Q8HR PRN PRN Reason: Nausea And Vomiting Stop: 10/14/17 20:07 Oxycodone/Acetaminophen (Percocet 10/325) 1 each PO Q6H PRN PRN Reason: Mild Pain Stop: 10/15/17 08:03 Pregabalin (Lyrica) 150 mg PO BID [facility] Stop: 10/15/17 09:01 Last Admin: 04/15/17 08:32 Dose: 150 mg Trazodone HCl (Trazodone) 100 mg PO HS [facility] Stop: 10/15/17 21:01 Laboratory Tests 04/14/17 04/14/17 04/15/17 19:53 19:53 02:28 Hgb Creatinine 0.91 Troponin I 13.10 H* 35.02 H* 04/15/17 04/15/17 02:28 08:14 Hgb 13.1 Creatinine Troponin I 48.79 H* - Imaging and Cardiology Echo: pending Cardiac cath: report reviewed - EKG Interpretation EKG results cardiology: personally reviewed (ECG today with SR, HR 69.), other ( Telemetry reviewed with average HR previous 12 hours noted to be 77, sinus rhythm. PVCs and PACs noted.) - VTE Documentation of Mechanical Device: Graduated compression elastic hosiery Consult Discharge Plan - Plan Referrals: Minh Pierce MD [Primary Care Provider] -
--- NOTE | 2017-04-15 12:42 | Discharge Summary ---
Date of Encounter: 04/15/17 Time of Encounter: 08:15 - Discharge Diagnosis (1) Non-ST elevation [place] (NSTEMI) Priority: Primary Status: Acute (2) Coronary artery disease Priority: Secondary Status: Chronic Qualifiers: Coronary Disease-Associated Artery/Lesion type: bypass graft [place] vs. transplanted heart: [place] heart Associated angina: with unstable angina Qualified Code(s): I25.700 - Atherosclerosis of coronary artery bypass graft(s) , unspecified, with unstable angina pectoris (3) Tobacco abuse Priority: Secondary Status: Chronic (4) Hx of CABG Priority: Secondary Status: Chronic (5) Hypothyroidism Priority: Secondary Status: Chronic Qualifiers: Hypothyroidism type: acquired Qualified Code(s): E03.9 - Hypothyroidism, unspecified (6) Hypertension Priority: Secondary Status: Chronic Qualifiers: Hypertension type: essential hypertension Qualified Code(s): I10 - Essential (primary) hypertension (7) Peripheral vascular disease Priority: Secondary Status: Chronic (8) Depression Priority: Secondary Status: Chronic Qualifiers: Depression Type: major depressive disorder Major depression recurrence: recurrent Active/Remission status: currently active Major depression episode severity: mild Qualified Code(s): F33.0 - Major depressive disorder, recurrent, mild (9) Dementia Priority: Secondary Status: Chronic Qualifiers: Dementia type: Alzheimer's disease Alzheimer's disease onset: early-onset Dementia behavioral disturbance: without behavioral disturbance Qualified Code(s): G30.0 - Alzheimer's disease with early onset; F02.80 - Dementia in other diseases classified elsewhere without behavioral disturbance; F02.80 - Dementia in other diseases classified elsewhere without behavioral disturbance; F02.80 - Dementia in other diseases classified elsewhere without behavioral disturbance - Discharge Medications Home Medications: Allopurinol [Zyloprim] 100 mg PO DAILY #0 01/16/15 [History] Aspirin Enteric Coated [Aspirin EC] 81 mg PO DAILY 01/16/15 [History] Fluticasone Propionate Nasal [Flonase] 2 spray NS DAILY 01/16/15 [History] Isosorbide MONOnitrate (24 HR) [Imdur] 60 mg PO DAILY #0 01/16/15 [History] clonazePAM [Klonopin] 0.5 mg PO HS #0 01/16/15 [History] Levothyroxine [Synthroid] 75 mcg PO 0630 #0 01/17/15 [History] Montelukast [Singulair] 10 mg PO DAILY 01/17/15 [History] Nitroglycerin 0.4 mg SL Q5M PRN #0 01/17/15 [History] Oxycodone HCl/Acetaminophen [Percocet 10-325 mg Tablet] 1 each PO Q6H PRN #0 [History] Pregabalin [Lyrica] 150 mg PO BID #0 01/17/15 [History] Atorvastatin [Lipitor] 40 mg PO HS 05/17/16 [History] Clopidogrel [Plavix] 75 mg PO DAILY 05/17/16 [History] Memantine HCl 10 mg PO BID 05/17/16 [History] Mirtazapine [Remeron] 30 mg PO HS 05/17/16 [History] Multivitamin [Multi-Day Vitamins] 1 each PO DAILY 05/17/16 [History] Pantoprazole Sodium [Protonix] 40 mg PO DAILY 05/17/16 [History] Trazodone HCl 100 - 200 mg PO HS 05/17/16 [History] Tizanidine HCl [Tizanidine HCl] 4 mg PO Q8H 04/15/17 [History] Allergies/Adverse Reactions: 3 Allergy/AdvReac Type Severity Reaction Status Date / Time acetaminophen AdvReac Itching Verified 04/15/17 09:56 [From Darvocet-N] enalaprilat [From Vasotec] AdvReac Weakness Verified 04/15/17 09:56 propoxyphene AdvReac Itching Verified 04/15/17 09:56 [From Darvocet-N] simvastatin [From Zocor] AdvReac Fainting Verified 04/15/17 09:56 Procedures/tests Complete & Pending: Procedures Performed prior 72 hours Category Date Time Status CL Cardiac Catheterization [CL] Routine Manager Cardiology 04/14/17 19:59 Completed EKG [ECG 12 lead ECG] [ECG] Stat Y 04/15/17 08:12 Completed EV echocardiogram Routine Y 04/15/17 11:00 Completed Date of admission: 04/14/17 18:39 Primary care physician: Minh Pierce MD Consults: 04/14/17 20:41 Consult to Cardiology [CONS] Routine Comment: Consulting Provider: Cardiology Mary Reason for Consult: NSTEMI Time Notified: 20:41 Call Completed: Yes 04/15/17 08:20 Consult to Cardiac Rehabilitation-Phase1 [CONS] Routine Comment: Reason for Consult: nstemi Call Completed: No Discharging clinician: Cj Ewing Anticipated date of discharge: 04/15/17 - Discharge Instructions Follow Up With: Minh Pierce MD [Primary Care Provider] - Hospital course: Mr. Rosario is a 72 year old male - Time Spent with Patient Total time spent providing and/or coordinating discharge services: - Constitutional Vitals: Temp Pulse Resp BP Pulse Ox 98.7 F 75 20 140/86 94 04/15/17 11:48 04/15/17 11:48 04/15/17 11:48 04/15/17 11:48 04/15/17 11:51 General appearance: Present: cooperative, A&O X 3, pleasant, no acute distress, answers questions appropriately - VTE Documentation of Mechanical Device: Graduated compression elastic hosiery
--- NOTE | 2017-04-15 12:55 | Internal Med Progress Note ---
Date of Encounter: 04/15/17 Time of Encounter: 12:51 - Assessment and plan (1) Non-ST elevation [place] (NSTEMI) Current Visit: Yes Status: Acute Assessment and plan: S/P stent placement yesterday. On DAP therapy. Continue medical management at this time. (2) Coronary artery disease Current Visit: Yes Status: Chronic Assessment and plan: Medical management at this time. Qualifiers: Coronary Disease-Associated Artery/Lesion type: bypass graft [place] vs. transplanted heart: [place] heart Associated angina: with unstable angina Qualified Code(s): I25.700 - Atherosclerosis of coronary artery bypass graft(s) , unspecified, with unstable angina pectoris (3) Tobacco abuse Current Visit: Yes Status: Chronic Assessment and plan: Cessation counselling. (4) Hx of CABG Current Visit: No Status: Chronic (5) Hypothyroidism Current Visit: Yes Status: Chronic Assessment and plan: Continue thyroid supplement. Qualifiers: Hypothyroidism type: acquired Qualified Code(s): E03.9 - Hypothyroidism, unspecified (6) Hypertension Current Visit: Yes Status: Chronic Assessment and plan: BP has been uncontrolled. Nitro drip weaned and PO started. Continue to monitor BP. May need increase in metoprolol or imdur again. Qualifiers: Hypertension type: essential hypertension Qualified Code(s): I10 - Essential (primary) hypertension (7) Peripheral vascular disease Current Visit: Yes Status: Chronic Assessment and plan: Chronic issue (8) Depression Current Visit: Yes Status: Chronic Assessment and plan: Chronic issue Qualifiers: Depression Type: major depressive disorder Major depression recurrence: recurrent Active/Remission status: currently active Major depression episode severity: mild Qualified Code(s): F33.0 - Major depressive disorder, recurrent, mild (9) Dementia Current Visit: Yes Status: Chronic Assessment and plan: Chronic issue. Continue meds. Qualifiers: Dementia type: Alzheimer's disease Alzheimer's disease onset: early-onset Dementia behavioral disturbance: without behavioral disturbance Qualified Code(s): G30.0 - Alzheimer's disease with early onset; F02.80 - Dementia in other diseases classified elsewhere without behavioral disturbance; F02.80 - Dementia in other diseases classified elsewhere without behavioral disturbance; F02.80 - Dementia in other diseases classified elsewhere without behavioral disturbance - Subjective Interval history: Mr Rosario is currently admitted for acute NSTEMI. He is s/p cath and stent placement. He remains moderate to high risk due to potential for worsening cardiac status. Mr Rosario had some reproducible chest pain this AM. It seems to be better at this time. It is his birthday and he is eating the cake from dietary. No SOB at this time. No nausea and vomiting. BP has been but slowly improving today. PO nitro resumed and drip to be stopped. Significant other Marnie (ARTI) has called floor multiple times and is concerned about the cath yesterday. She wanted him transferred and says he wants to go. Arrangements made but patient has told 3 people he does not want to go and he feels OK. Transfer cancelled. - Constitutional Vitals: Temp Pulse Resp BP Pulse Ox 98.7 F 75 20 140/86 94 04/15/17 11:48 04/15/17 11:48 04/15/17 11:48 04/15/17 11:48 04/15/17 11:51 General appearance: Present: cooperative, A&O X 3, pleasant, answers questions appropriately - Head Head exam: Present: atraumatic, normocephalic - Eye Eye exam: Present: EOMI, conjuntiva pink - ENT ENT exam: Present: mucous membranes moist - Respiratory Respiratory exam: Present: decreased breath sounds, CTAB. Absent: rales, rhonchi, wheezes - Cardiovascular Cardiovascular exam: Present: RRR. Absent: tachycardia - GI/Abdominal GI/Abdominal exam: Present: normal bowel sounds, soft. Absent: tenderness - Extremities Exam Extremities exam: Present: warm. Absent: tenderness - Neurological Exam Neurological exam: Present: alert, oriented X3 - Skin Skin exam: Present: dry, warm. Absent: rash Internal Medicine: Result - Labs CBC & Chem 7: 04/15/17 02:28 04/14/17 19:53 Labs: Short CBC 04/14/17 04/15/17 Range/Units 19:53 02:28 WBC 11.0 10.4 (4.3-11.1) K/mcL Hgb 13.8 13.1 (12.9-16.9) g/dL Hct 39.0 37.6 (37.5-50.1) % Plt Count 190 188 (140-400) K/mcL Neutrophils # 8.4 8.3 (1.6-8.9) K/mcL BMP 04/14/17 19:53 Sodium 142 Potassium 3.6 Chloride 106 Carbon Dioxide 27 BUN 11 Creatinine 0.91 Glucose 117 H Calcium 9.3 Cardiac Enzymes 04/14/17 04/15/17 04/15/17 Range/Units 19:53 02:28 08:14 Troponin I 13.10 H* 35.02 H* 48.79 H* (0-0.03) ng/mL - ABG Interpretation ABG results: PT/INR, D-dimer PT 12.8 Seconds (9.4-12.1) H 04/14/17 19:53 - VTE Documentation of Mechanical Device: Graduated compression elastic hosiery Consult Discharge Plan - Plan Referrals: Minh Pierce MD [Primary Care Provider] -
[2017-04-15 13:19] LABS: BUN/Creatinine Ratio 10 (6-26); Blood Urea Nitrogen 11 mg/dL (8-26); Carbon Dioxide 28 mEq/L (19-29); Chloride 103 mEq/L (98-109); Glucose 127 mg/dL (70-99); Osmolality,Calculated 293 (280-300); Potassium 3.8 mEq/L (3.5-4.5); Sodium 141 mEq/L (136-145); eGFR For African Americans > 60 (> 60); eGFR For Non-African Americans > 60 (> 60)
[2017-04-15] MEDS ORDERED: Ibuprofen 400 MG TABLET PO PRN (16:27)
[2017-04-15] MEDS: amLODIPine 5 MG TABLET PO SCH (16:37)
[2017-04-15] MEDS: clonazePAM 0.5 MG TABLET PO SCH (21:08)
[2017-04-15] MEDS: Mirtazapine 15 MG TABLET PO SCH (21:08)
[2017-04-15] MEDS: *HR* OxyCODONE/APAP 10/325 TABLET PO PRN (21:09)
[2017-04-15] MEDS: traZODone 50 MG TABLET PO SCH (21:09)
[2017-04-16 02:30] LABS: Hematocrit 38.4 % (37.5-50.1); Hemoglobin 13.7 g/dL (12.9-16.9); Mean Corpuscular HGB Conc 35.7 g/dL (31.6-35.5); Mean Corpuscular Volume 89.7 fL (83.0-100.0); Mean Platelet Volume 9.8 fL (9.4-12.4); Platelet Count 159 K/mcL (140-400); Red Blood Count 4.28 M/mcL (4.19-5.50); Red Cell Distribution Width 13.2 % (11.5-14.5)
[2017-04-16 02:41] LABS: BUN/Creatinine Ratio 12 (6-26); Blood Urea Nitrogen 11 mg/dL (8-26); Calcium 8.7 mg/dL (8.6-10.8); Carbon Dioxide 28 mEq/L (19-29); Chloride 103 mEq/L (98-109); Glucose 152 mg/dL (70-99); Magnesium 1.7 mg/dL (1.6-2.6); Osmolality,Calculated 296 (280-300); Potassium 3.2 mEq/L (3.5-4.5); Sodium 142 mEq/L (136-145); eGFR For African Americans > 60 (> 60); eGFR For Non-African Americans > 60 (> 60)
[2017-04-16] MEDS: Ipratropium/Albuterol Neb 3 ML IH SCH ×4 (03:55→22:00)
[2017-04-16] MEDS: Aspirin Enteric Coated 81 MG Tablet PO SCH (08:20)
[2017-04-16] MEDS: amLODIPine 5 MG TABLET PO SCH (08:20)
[2017-04-16] MEDS: Pregabalin 75 MG CAPSULE PO SCH (08:20)
[2017-04-16] MEDS: Multivit/Ca/Min/Fe/FA 1 TAB TABLET PO SCH (08:20)
[2017-04-16] MEDS: Isosorbide MONOnitrate (24 HR) 60 MG TAB.ER.24H PO SCH (08:20)
[2017-04-16] MEDS: Fluticasone Propionate Nasal 50 MCG/SPRAY BOTTLE NS SCH (08:21)
[2017-04-16] MEDS ORDERED: 0.9 % Sodium Chloride 1,000 ML ONE (09:42)
[2017-04-16 09:48] LABS: ABG Base Excess 3 mEq/L (-2 to 3); ABG HCO3 27 mEq/L (21-27); ABG Oxygen Saturation 93 % (95-98); ABG PCO2 40 mmHg (35-45); ABG PH 7.44 pH Units (7.32-7.45); ABG PO2 66 mmHg (85-104); ABG TCO2 29 mEq/L (20-26)
[2017-04-16] MEDS ORDERED: Potassium Chloride 40 MEQ, Lidocaine 1% 2 ML in D5% in Water 500 ML IVPB ONE (10:05)
[2017-04-16] MEDS ORDERED: 0.9 % Sodium Chloride 500 ML IVC ONE (10:12)
--- NOTE | 2017-04-16 10:20 | Event Note ---
<Dyana Powers - Last Filed: 04/16/17 10:20> Date of Encounter: 04/16/17 Time of Encounter: 09:35 at 0932, cardiology nurse practitioner informed hospitalist service that patient was very slow to respond. stat accucheck was measured at 230. patient was sating at 97% on 4L. Patient did not respond to sternal rub and his pupils remained constricted. He received one time dose of .4mg narcan. He became incontinent and had loose stool. Stat CT head ordered. stat ABG was unremarkable. 1L bolus ordered. Patient responded to narcan and was alert but remained very drowsy. C.Diff toxin ordered, along with prolactin and lactic acid. <Cj Ewing - Last Filed: 04/16/17 12:35> Date of Encounter: 04/16/17 I was present at the time and agree with plan of care.
--- NOTE | 2017-04-16 11:24 | Cardiology Progress Note ---
Date of Encounter: 04/16/17 Time of Encounter: 09:30 Assessment and Plan (1) Non-ST elevation [place] (NSTEMI) Current Visit: Yes Status: Acute Per cardiology: -S/p LHC yesterday with 100% LAD stenosis, WRIGHT to LAD patent, 80% proximal circumflex stenosis with RANDEE placed, 100% Proximal RCA, SVG to OM occluded, SVG to circumflex occluded, SVG to RCA occluded. -On asa, statin, beta corrie, imdur, and plavix. Educated on importance of dual anti-platelet therapy uninterrupted for at least one year. -TTE with LVEF 60%, mild diastolic dysufnction, all wall segments with normal motion. -ECG yesterday with no acute ischemic changes. -Patient with episode this morning of decreased responsiveness. Leukocytosis noted, stool positive for C.Diff. CT with no acute intracranial abnormalities. Hemoglobin stable. -Will repeat limited TTE to rule out cardiac cause of decreased responsiveness. -Will continue to monitor. Discussion w patient/family: The assessment and plan as outlined above was discussed with the patient who expressed understanding and agreement. All questions were answered. Thank you for involving us in the care of your patient. Please call with any questions. Discussed and reviewed with . Subjective Principal diagnosis: NSTEMI Interval history: Upon entering room, patient sitting in chair slumped over. Patient's coloring zeng. Patient slow to respond. Notified patient's primary nurse and hospitalist team, see hospitalist event note. Objective Vital Signs, Last 4 Hours Temp Pulse Resp BP Pulse Ox 04/16/17 11:18 99.8 F H 79 16 119/75 96 General: Other (Slow to respond. ) HEENT: Atraumatic, Normocephaly, Mucus Membranes Moist Neck: No JVD, Normal carotid pulses Cardiac: Reg Rate and Rhythm, Normal S1 and S2, No Murmur Lungs: Other (Inspiratory wheezes noted throughout. ) Neuro: Other (Slow to respond. ) Abdomen: Soft, Non-Tender Skin: No rashes noted on visualized skin Musculoskeletal: No Chest Wall Tenderness Extremities: No Clubbing, No Cyanosis, No Edema, Other (1+ blateral palpable pedal pulses. ) Results 04/16/17 02:23 04/16/17 02:23 Lab Results Impressions Echocardiogram 04/15/17 11:00 Impressions: LVEF 60%. Mild left ventricular diastolic dysfunction. Normal right ventricular structure and function. No significant valvular dysfunction. Estimated RVSP was 20 mmHg. No pulmonary hypertension. Left Ventricular Wall Motion: Rest Echo Findings All wall segments showed normal motion. Findings: Study Quality * Technically adequate exam. ECG Findings * Normal sinus rhythm. Left Ventricle * LVEF 60%. * Mild left ventricular diastolic dysfunction. Right Ventricle * Normal right ventricular structure and function. Left Atrium * Normal left atrial size. Right Atrium * Normal right atrial size. Interatrial Septum * No evidence of PFO by color Doppler. Aortic Valve * Aortic valve not well visualized. * No aortic regurgitation. * No aortic stenosis. Mitral Valve * Normal mitral valve structure and function. Tricuspid Valve * Mild tricuspid regurgitation. Pulmonic Valve * Pulmonic valve not well visualized. Aorta * Normally sized aortic root. Pericardium * The pericardium appears normal. IVC * Normal IVC dimensions and inspiratory collapse. Head CT 04/16/17 09:39 IMPRESSION: No acute intracranial abnormality. D/ : / 04/16/2017 11:06:17 Emil Clark MD / myao Interpreting Provider: Emil Clark MD Active Medications Albuterol Sulfate (Proventil Neb) 2.5 mg IH Q2H PRN PRN Reason: Shortness Of Breath/Wheezing Stop: 10/14/17 20:44 Albuterol/Ipratropium (Duoneb) 3 ml IH QIDR [facility] Stop: 10/14/17 23:01 Last Admin: 04/16/17 09:52 Dose: 3 ml Albuterol/Ipratropium (Duoneb) 3 ml IH [id number] PRN PRN Reason: Shortness Of Breath/WHEEZE Stop: 10/15/17 04:14 Amlodipine Besylate (Norvasc) 5 mg PO DAILY MANDIE PRN Reason: Protocol Stop: 10/15/17 16:31 Last Admin: 04/16/17 08:20 Dose: 5 mg Aspirin (Aspirin Ec) 81 mg PO DAILY [facility] Stop: 10/15/17 09:01 Last Admin: 04/16/17 08:20 Dose: 81 mg Atorvastatin Calcium (Lipitor) 40 mg PO HS [facility] Stop: 10/15/17 21:01 Last Admin: 04/15/17 21:08 Dose: 40 mg Clonazepam (Klonopin) 0.5 mg PO HS MANDIE Stop: 10/15/17 21:01 Last Admin: 04/15/17 21:08 Dose: 0.5 mg Clopidogrel Bisulfate (Plavix) 75 mg PO DAILY MANDIE Stop: 10/15/17 09:01 Last Admin: 04/16/17 08:20 Dose: 75 mg Fluticasone Propionate (Flonase) 100 mcg NS DAILY MANDIE PRN Reason: Protocol Stop: 10/15/17 09:01 Last Admin: 04/16/17 08:21 Dose: 100 mcg Potassium Chloride 40 meq/ (Lidocaine 2 ml/ Dextrose) 522 mls @ 130.5 mls/hr IVPB ONCE ONE Stop: 04/16/17 14:04 Metronidazole (Flagyl Premix 500 Mg/100 Ml) 500 mg in 100 mls @ 100 mls/hr IVPB Q8HR MANDIE Stop: 10/16/17 16:01 Ibuprofen (Motrin) 200 mg PO Q6HR PRN; Protocol PRN Reason: FEVER/PAIN Stop: 10/15/17 16:28 Isosorbide Mononitrate (Imdur) 60 mg PO DAILY MANDIE Stop: 10/15/17 09:01 Last Admin: 04/16/17 08:20 Dose: 60 mg Levothyroxine Sodium (Synthroid) 75 mcg PO 0630 MANDIE Stop: 10/15/17 06:31 Last Admin: 04/16/17 07:11 Dose: 75 mcg Memantine (Namenda) 10 mg PO BID MANDIE Stop: 10/15/17 09:01 Last Admin: 04/16/17 08:20 Dose: 10 mg Metoprolol Tartrate (Lopressor) 25 mg PO BID MANDIE Stop: 10/15/17 09:01 Last Admin: 04/16/17 08:20 Dose: 25 mg Mirtazapine (Remeron) 30 mg PO HS MANDIE Stop: 10/15/17 21:01 Last Admin: 04/15/17 21:08 Dose: 30 mg Montelukast Sodium (Singulair) 10 mg PO DAILY MANDIE Stop: 10/15/17 09:01 Last Admin: 04/16/17 08:20 Dose: 10 mg Multivitamins/Calcium (Thera M Plus) 1 tab PO DAILY MANDIE Stop: 10/15/17 09:01 Last Admin: 04/16/17 08:20 Dose: 1 tab Naloxone HCl (Narcan) 0.4 mg IVP Q2MIN PRN PRN Reason: Opioid Reversal Stop: 10/14/17 20:07 Last Admin: 04/16/17 09:40 Dose: 0.4 mg Nitroglycerin (Nitroglycerin) 0.4 mg SL Q5M PRN PRN Reason: Chest Pain Stop: 10/15/17 04:14 Omeprazole (Prilosec) 40 mg PO DAILY MANDIE Stop: 10/15/17 09:01 Last Admin: 04/16/17 08:20 Dose: 40 mg Ondansetron HCl (Zofran) 4 mg IVP Q8HR PRN PRN Reason: Nausea And Vomiting Stop: 10/14/17 20:07 Oxycodone/Acetaminophen (Percocet 10/325) 1 each PO Q6H PRN PRN Reason: Mild Pain Stop: 10/15/17 08:03 Last Admin: 04/15/17 21:09 Dose: 1 each Trazodone HCl (Trazodone) 100 mg PO HS MANDIE Stop: 10/15/17 21:01 Last Admin: 04/15/17 21:09 Dose: 100 mg Laboratory Tests 04/15/17 04/16/17 04/16/17 02:28 02:23 02:23 WBC 10.4 12.1 H Hgb 13.1 13.7 Creatinine 0.95 - Imaging and Cardiology Chest Xray: report reviewed Echo: pending, report reviewed Cardiac cath: report reviewed - EKG Interpretation EKG results cardiology: other (Telemetry reviewed with average HR previous 12 hours noted to be 84, sinus rhythm. PVCS and PACS noted.) - VTE Documentation of Mechanical Device: Graduated compression elastic hosiery Consult Discharge Plan - Plan Referrals: Minh Pierce MD [Primary Care Provider] - 04/23/17 11:30 am
--- NOTE | 2017-04-16 11:59 | Internal Med Progress Note ---
<Nina Lawson - Last Filed: 04/16/17 15:55> Date of Encounter: 04/16/17 Time of Encounter: 10:00 - Assessment and plan (1) Non-ST elevation [place] (NSTEMI) Current Visit: Yes Status: Acute Assessment and plan: s/p [facility] (04/14/17)--100% LAD stenosis, WRIGHT to LAD patent, 80% proximal circ stenosis with RANDEE placed, 100% Proximal RCA, 3 of 4 saphenous vein graphs occluded 04/16/17 Limited echo--LVEF 50%, low normal LV systolic function, not all wall segments well visualized Plan: Continue dual anti-platelet therapy Continue medical management with ASA, statin, BB, imdur, plavix (2) Unresponsive episode Current Visit: Yes Status: Acute Assessment and plan: Etiology unclear at this time--CT head negative for acute intracranial abnormality Prolactin elevated @ 49.22 Plan: Limited echo pending EEG for tomorrow (3) Coronary artery disease Current Visit: Yes Status: Chronic Assessment and plan: Continue medical management with dual antiplatelet therapy, statin, BB, imdur Qualifiers: Coronary Disease-Associated Artery/Lesion type: bypass graft [place] vs. transplanted heart: [place] heart Associated angina: with unstable angina Qualified Code(s): I25.700 - Atherosclerosis of coronary artery bypass graft(s) , unspecified, with unstable angina pectoris (4) C. difficile diarrhea Current Visit: Yes Status: Acute Assessment and plan: Stool + for C. diff toxin B Plan: Continue flagyl 500mg PO BID (day 1) (5) Hx of CABG Current Visit: No Status: Chronic Assessment and plan: Saphenous vein grafts x 3 Internal mammary graft x 1 (6) Hypothyroidism Current Visit: Yes Status: Chronic Assessment and plan: Continue synthroid Qualifiers: Hypothyroidism type: acquired Qualified Code(s): E03.9 - Hypothyroidism, unspecified (7) Hypertension Current Visit: Yes Status: Chronic Assessment and plan: BP 139/79 this AM Plan: Monitor blood pressures Continue imdur 60mg PO daily Continue lopressor 25mg PO BID Qualifiers: Hypertension type: essential hypertension Qualified Code(s): I10 - Essential (primary) hypertension (8) Peripheral vascular disease Current Visit: Yes Status: Chronic (9) Depression Current Visit: Yes Status: Chronic Qualifiers: Depression Type: major depressive disorder Major depression recurrence: recurrent Active/Remission status: currently active Major depression episode severity: mild Qualified Code(s): F33.0 - Major depressive disorder, recurrent, mild (10) Dementia Current Visit: Yes Status: Chronic Assessment and plan: Continue memantine Qualifiers: Dementia type: Alzheimer's disease Alzheimer's disease onset: early-onset Dementia behavioral disturbance: without behavioral disturbance Qualified Code(s): G30.0 - Alzheimer's disease with early onset; F02.80 - Dementia in other diseases classified elsewhere without behavioral disturbance; F02.80 - Dementia in other diseases classified elsewhere without behavioral disturbance; F02.80 - Dementia in other diseases classified elsewhere without behavioral disturbance (11) Tobacco abuse Current Visit: Yes Status: Chronic Assessment and plan: Cessation counselling - Subjective Interval history: Patient seen and examined today at bedside, he is sitting up in bed getting ready to eat lunch. Patient is in NAD and has no complaints at time of exam. He denies chest pain, dyspnea, fever, chills, nausea, abdominal pain. - Constitutional Vitals: Temp Pulse Resp BP Pulse Ox 99.8 F H 79 16 119/75 96 04/16/17 11:18 04/16/17 11:18 04/16/17 11:18 04/16/17 11:18 04/16/17 11:18 General appearance: Present: cooperative, A&O X 3, answers questions appropriately - Head Head exam: Present: atraumatic, normocephalic - Neck Neck exam general surgery: Present: full ROM, supple - Respiratory Respiratory exam: Present: decreased breath sounds, CTAB. Absent: respiratory distress - Cardiovascular Cardiovascular exam: Present: RRR, +S1, +S2. Absent: diastolic murmur, systolic murmur - GI/Abdominal GI/Abdominal exam: Present: soft. Absent: guarding, rebound, rigid, tenderness - Extremities Exam Extremities exam: Absent: pedal edema, tenderness Additional comments: DP pulses equal bilaterally - Neurological Exam Neurological exam: Present: alert, oriented X3, no focal deficits. Absent: facial droop, speech deficit Internal Medicine: Result - Labs CBC & Chem 7: 04/16/17 02:23 04/16/17 02:23 Labs: Short CBC 04/16/17 Range/Units 02:23 WBC 12.1 H (4.3-11.1) K/mcL Hgb 13.7 (12.9-16.9) g/dL Hct 38.4 (37.5-50.1) % Plt Count 159 (140-400) K/mcL BMP 04/15/17 04/16/17 12:45 02:23 Sodium 141 142 Potassium 3.8 3.2 L Chloride 103 103 Carbon Dioxide 28 28 BUN 11 11 Creatinine 1.10 0.95 Glucose 127 H 152 H Calcium 9.0 8.7 - ABG Interpretation ABG results: ABG ABG pH 7.44 pH Units (7.32-7.45) 04/16/17 09:42 ABG pCO2 40 mmHg (35-45) 04/16/17 09:42 ABG pO2 66 mmHg (85-104) L 04/16/17 09:42 ABG O2 Saturation 93 % (95-98) L 04/16/17 09:42 PT/INR, D-dimer PT 12.8 Seconds (9.4-12.1) H 04/14/17 19:53 - Impressions Impressions Echocardiogram 04/15/17 11:00 Impressions: LVEF 60%. Mild left ventricular diastolic dysfunction. Normal right ventricular structure and function. No significant valvular dysfunction. Estimated RVSP was 20 mmHg. No pulmonary hypertension. Left Ventricular Wall Motion: Rest Echo Findings All wall segments showed normal motion. Findings: Study Quality * Technically adequate exam. ECG Findings * Normal sinus rhythm. Left Ventricle * LVEF 60%. * Mild left ventricular diastolic dysfunction. Right Ventricle * Normal right ventricular structure and function. Left Atrium * Normal left atrial size. Right Atrium * Normal right atrial size. Interatrial Septum * No evidence of PFO by color Doppler. Aortic Valve * Aortic valve not well visualized. * No aortic regurgitation. * No aortic stenosis. Mitral Valve * Normal mitral valve structure and function. Tricuspid Valve * Mild tricuspid regurgitation. Pulmonic Valve * Pulmonic valve not well visualized. Aorta * Normally sized aortic root. Pericardium * The pericardium appears normal. IVC * Normal IVC dimensions and inspiratory collapse. Head CT 04/16/17 09:39 IMPRESSION: No acute intracranial abnormality. D/ / 04/16/2017 11:06:17 Emil Clark MD / mayo Interpreting Provider: Emil Clark MD - VTE Documentation of Mechanical Device: Graduated compression elastic hosiery Consult Discharge Plan - Plan Referrals: matt, Cardiology [Other] (Office will call patient at home with follow up appointment) Minh Pierce MD [Primary Care Provider] - 04/23/17 11:30 am <Cj Ewing - Last Filed: 04/16/17 17:30> Date of Encounter: 04/16/17 - Assessment and plan (1) Unresponsive episode Current Visit: Yes Status: Acute (2) C. difficile diarrhea Current Visit: Yes Status: Acute (3) Non-ST elevation [place] (NSTEMI) Current Visit: Yes Status: Acute (4) Coronary artery disease Current Visit: Yes Status: Chronic Qualifiers: Coronary Disease-Associated Artery/Lesion type: bypass graft [place] vs. transplanted heart: [place] heart Associated angina: with unstable angina Qualified Code(s): I25.700 - Atherosclerosis of coronary artery bypass graft(s) , unspecified, with unstable angina pectoris (5) Tobacco abuse Current Visit: Yes Status: Chronic (6) Hx of CABG Current Visit: No Status: Chronic (7) Hypothyroidism Current Visit: Yes Status: Chronic Qualifiers: Hypothyroidism type: acquired Qualified Code(s): E03.9 - Hypothyroidism, unspecified (8) Hypertension Current Visit: Yes Status: Chronic Qualifiers: Hypertension type: essential hypertension Qualified Code(s): I10 - Essential (primary) hypertension (9) Peripheral vascular disease Current Visit: Yes Status: Chronic (10) Depression Current Visit: Yes Status: Chronic Qualifiers: Depression Type: major depressive disorder Major depression recurrence: recurrent Active/Remission status: currently active Major depression episode severity: mild Qualified Code(s): F33.0 - Major depressive disorder, recurrent, mild (11) Dementia Current Visit: Yes Status: Chronic Qualifiers: Dementia type: Alzheimer's disease Alzheimer's disease onset: early-onset Dementia behavioral disturbance: without behavioral disturbance Qualified Code(s): G30.0 - Alzheimer's disease with early onset; F02.80 - Dementia in other diseases classified elsewhere without behavioral disturbance; F02.80 - Dementia in other diseases classified elsewhere without behavioral disturbance; F02.80 - Dementia in other diseases classified elsewhere without behavioral disturbance - Constitutional Vitals: Temp Pulse Resp BP Pulse Ox 98.9 F 79 17 121/62 95 04/16/17 16:16 04/16/17 16:16 04/16/17 16:16 04/16/17 16:16 04/16/17 16:16 Internal Medicine: Result - Labs CBC & Chem 7: 04/16/17 02:23 04/16/17 02:23 Labs: Short CBC 04/16/17 Range/Units 02:23 WBC 12.1 H (4.3-11.1) K/mcL Hgb 13.7 (12.9-16.9) g/dL Hct 38.4 (37.5-50.1) % Plt Count 159 (140-400) K/mcL BMP 04/16/17 02:23 Sodium 142 Potassium 3.2 L Chloride 103 Carbon Dioxide 28 BUN 11 Creatinine 0.95 Glucose 152 H Calcium 8.7 Urine 04/16/17 Range/Units 16:35 Urine Color Dark Yellow (Yellow) Urine Clarity Clear (Clear) Urine pH 6.0 (5.0-8.0) pH Units Ur Specific [place] > 1.030 H (1.010-1.025) Urine Protein 100 H (Neg-Trace) mg/dL Urine Glucose (UA) 250 H (Normal) mg/dL - ABG Interpretation ABG results: ABG ABG pH 7.44 pH Units (7.32-7.45) 04/16/17 09:42 ABG pCO2 40 mmHg (35-45) 04/16/17 09:42 ABG pO2 66 mmHg (85-104) L 04/16/17 09:42 ABG O2 Saturation 93 % (95-98) L 04/16/17 09:42 PT/INR, D-dimer PT 12.8 Seconds (9.4-12.1) H 04/14/17 19:53 - Impressions Impressions Head CT 04/16/17 09:39 IMPRESSION: No acute intracranial abnormality. D/ : / 04/16/2017 11:06:17 Emil Clark MD / mayo Interpreting Provider: Emil Clark MD Echocardiogram Limited Views 04/16/17 10:22 Impressions: LVEF 50%. Low normal LV systolic function. Not all wall segments were well visualized. Asymmetric basal septal hypertrophy. Left Ventricular Wall Motion: Rest Echo Findings The mid anterior lateral and basal anterior lateral ruiz were not visualized. All other wall segments showed normal motion. Findings: Study Quality * Technically adequate exam. ECG Findings * Normal sinus rhythm. Left Ventricle * Asymmetric basal septal hypertrophy. * LVEF 50%. Right Ventricle * RV is not well evaluated on this limited study. - Attending Attestation I examined this patient and my medical decision-making was reviewed with the Resident Physician on 04/16/17. I agree with the documented findings, disposition and treatment plan as described except to the extent set forth below. Mr Rosario has been admitted for acute NSTEMI and is s/p stent placement. He had unresponsive episode this AM and has had low grade temp. He remains moderate to high risk due to potential for worsening cardiac and clinical status. Mr Rosario had episode of unresponsiveness in chair today. SBP was 101 when back to bed. He was warm to touch and slowly improved. Stool returned positive for C diff and he said he was hospitalized 3 weeks ago for same issue. Cultures done. No CP or SOB at this time. Exam Alert. comfortable now. Mucus membranes dry Heart reg Lungs diminished but clear Abd soft and nontender No edema I/P 1. Unresponsive - most likely was hypotensive as BP was low when flat in bed. Returned to baseline at this point. Suspect related to c diff. 2. C diff colitis - present on admission as patient has been here less than 48 hours and had recent treatment. 3. NSTEMI Further diagnoses and plan as above.
[2017-04-16] MEDS ORDERED: MetroNIDAZOLE 500 MG/100 ML 500 MG/100 ML BAG IVPB SCH (12:00)
--- NOTE | 2017-04-16 15:04 | Electrocardiograph Report ---
[place] [address] Test Date: 2017-04-14 Pat Name: Juan Diego Rosario Department: 110 Room: 2N09 Gender: M Plan Manager: CAREY : 1945 Requested By: Cj Ewing Order Number: [id number] Reading MD: Mike Morales Measurements Intervals [place] Rate: 61 P: 68 [place]: 164 QRS: -73 QRSD: 100 T: 108 QT: 433 QTc: 435 Interpretive Statements SINUS RHYTHM WITH OCCASIONAL SUPRAVENTRICULAR PREMATURE COMPLEXES INFERIOR MYOCARDIAL INFARCTION, PROBABLY OLD NONSPECIFIC T WAVE CHANGES Electronically Signed On 04-16-2017 15:02:16 EST by Mike Morales
--- NOTE | 2017-04-16 15:17 | Electrocardiograph Report ---
[address] [place], [place] [address] Test Date: 2017-04-15 Pat Name: Juan Diego Rosario Department: 110 Room: 2N09 Gender: M Railroad Operating Engineer: : 1945 Requested By: Cj Ewing Order Number: [id number] Reading MD: Mike Morales Measurements Intervals [place] Rate: 69 P: 67 MO: 170 QRS: -76 QRSD: 91 T: 110 QT: 420 QTc: 439 Interpretive Statements SINUS RHYTHM LOW QRS VOLTAGE IN EXTREMITY LEADS INFERIOR MYOCARDIAL INFARCTION Electronically Signed On 04-16-2017 15:15:42 EST by Mike Morales
[2017-04-16 16:55] LABS: Bilirubin,Urine Small (Negative); Blood,Urine Moderate (Negative); Clarity,Urine Clear (Clear); Color,Urine Dark Yellow (Yellow); Glucose,Urine (UA) 250 mg/dL (Normal); Ketones,Urine Negative (Negative); Leukocyte Esterase,Urine Negative (Negative); Nitrite,Urine Positive (Negative); Protein,Urine 100 mg/dL (Neg-Trace); Specific Gravity,Urine > 1.030 (1.010-1.025); Urobilinogen,Urine Normal (Normal)
[2017-04-16 16:56] LABS: Bacteria,Urine None Seen per hpf (None-Few); Hyaline Casts,Urine None Seen per lpf (None-Few); Squamous Epithelial Cell,Urine Moderate per lpf (None-Few); WBC,Urine 0-3 per hpf (0-3)
[2017-04-16] MEDS: metroNIDAZOLE 500 MG TABLET PO SCH (20:59)
[2017-04-16] MEDS: clonazePAM 0.5 MG TABLET PO SCH (21:00)
[2017-04-16] MEDS: Mirtazapine 15 MG TABLET PO SCH (21:00)
[2017-04-16] MEDS: traZODone 50 MG TABLET PO SCH (21:00)
[2017-04-17] MEDS: metroNIDAZOLE 500 MG TABLET PO SCH ×3 (03:21→21:06)
[2017-04-17] MEDS: Ipratropium/Albuterol Neb 3 ML IH SCH ×4 (03:48→22:24)
[2017-04-17 06:51] LABS: Basophils % 0.3 %; Eosinophils # 0.2 K/mcL (0.0-0.6); Eosinophils % 1.9 %; Hematocrit 34.4 % (37.5-50.1); Immature Granulocytes % 0.4 % (0-4); Lymphocytes % 20.4 %; Mean Corpuscular HGB Conc 34.9 g/dL (31.6-35.5); Mean Corpuscular Hemoglobin 31.8 pg (28.0-33.3); Mean Corpuscular Volume 91.2 fL (83.0-100.0); Mean Platelet Volume 10.3 fL (9.4-12.4); Monocytes # 0.9 K/mcL (0.0-1.3); Monocytes % 8.9 %; Neutrophils # 6.8 K/mcL (1.6-8.9); Platelet Count 141 K/mcL (140-400); Red Blood Count 3.77 M/mcL (4.19-5.50); Red Cell Distribution Width 13.2 % (11.5-14.5); Segmented Neutrophils % 68.1 %
[2017-04-17 06:54] LABS: BUN/Creatinine Ratio 17 (6-26); Blood Urea Nitrogen 18 mg/dL (8-26); Calcium 8.6 mg/dL (8.6-10.8); Carbon Dioxide 27 mEq/L (19-29); Chloride 106 mEq/L (98-109); Glucose 131 mg/dL (70-99); Magnesium 1.5 mg/dL (1.6-2.6); Osmolality,Calculated 298 (280-300); Phosphorous 2.3 mg/dL (2.3-4.7); Potassium 3.4 mEq/L (3.5-4.5); Sodium 142 mEq/L (136-145); eGFR For African Americans > 60 (> 60); eGFR For Non-African Americans > 60 (> 60)
--- NOTE | 2017-04-17 08:53 | Neurology - Consult Note ---
Date of Encounter: 04/19/17 Time of Encounter: 07:45 Assessment and Plan (1) Unresponsive episode Current Visit: Yes Status: Resolved This patient who apparently has multiple medical conditions along with C. difficile colitis apparently had an episode of unresponsiveness without any focal motor lateralizing sign of his stroke on his examination at the same time CT of the head was negative for any acute abnormality. No focal deficit noted on his exam. Rare possibility that it could be a seizure but certainly sounds more like syncopal episode we will get an EEG also check for under lying metabolic abnormalities, and particularly check his vitamin B12 folate and TSH levels and make sure it is all therapeutic keep the patient well-hydrated is quite possible that it could be related to orthostatic or perhaps hypoperfusion No indication to start him on any anti-seizure medication Follow up on the EEG when it is completed (2) Dementia Current Visit: Yes Status: Chronic Qualifiers: Dementia type: Alzheimer's disease Alzheimer's disease onset: early-onset Dementia behavioral disturbance: without behavioral disturbance Qualified Code(s): G30.0 - Alzheimer's disease with early onset; F02.80 - Dementia in other diseases classified elsewhere without behavioral disturbance; F02.80 - Dementia in other diseases classified elsewhere without behavioral disturbance; F02.80 - Dementia in other diseases classified elsewhere without behavioral disturbance History of Present Illness HPI: Mr. Rosario is a 72 year old male was been admitted with multiple medical conditions including C. difficile had an episode earlier of unresponsiveness while he was sitting in the chair was not responsive for about 15-20 minutes and then came back to his baseline status CT scan did not show any acute abnormality, patient is back to his baseline Past Med Surg Social Fam HX - Past Medical History Medical history: aortic aneurysm, coronary artery disease, GERD, GI bleed, hypertension, myocardial infarction, peripheral artery disease, thyroid disease Psychiatric history: no psych history - Past Surgical History Surgical History: coronary bypass (CABG), LE Bypass - Social History Smoking Status: Current every day smoker Alcohol use: none Drug use: none - Family History Brother Name: GERDA Family Member Ethnicity: Non- Living Status: Age at : 35 Cause of : DC Hx Family Cardiac Disorders: Yes Hx Family Respiratory Disorders: No Hx Family Cancer: Yes Hx Family GI Disorders: No Hx Family Genitourinary Disorders: No Hx Family Endocrine Disorder: Yes (MOTHER DM) Hx Family Musculoskeletal Disorders: No Hx Family Neuromuscular Disorders: No Hx Family Neurologic Disorders: No Hx Family HEENT Disorders: No Hx Family Autoimmune Disorders: No Hx Family Reproductive Disorders: No Hx Family Psychosocial Disorders: No Hx Family Medical Disorders: Yes Medications and Allergies Allopurinol [Zyloprim] 100 mg PO DAILY #0 01/16/15 [History] Aspirin Enteric Coated [Aspirin EC] 81 mg PO DAILY 01/16/15 [History] Fluticasone Propionate Nasal [Flonase] 2 spray NS DAILY 01/16/15 [History] Isosorbide MONOnitrate (24 HR) [Imdur] 60 mg PO DAILY #0 01/16/15 [History] clonazePAM [Klonopin] 0.5 mg PO HS #0 01/16/15 [History] Levothyroxine [Synthroid] 75 mcg PO 0630 #0 01/17/15 [History] Montelukast [Singulair] 10 mg PO DAILY 01/17/15 [History] Nitroglycerin 0.4 mg SL Q5M PRN #0 01/17/15 [History] Oxycodone HCl/Acetaminophen [Percocet 10-325 mg Tablet] 1 each PO Q6H PRN #0 [History] Pregabalin [Lyrica] 150 mg PO BID #0 01/17/15 [History] Atorvastatin [Lipitor] 40 mg PO HS 05/17/16 [History] Clopidogrel [Plavix] 75 mg PO DAILY 05/17/16 [History] Memantine HCl 10 mg PO BID 05/17/16 [History] Mirtazapine [Remeron] 30 mg PO HS 05/17/16 [History] Multivitamin [Multi-Day Vitamins] 1 each PO DAILY 05/17/16 [History] Pantoprazole Sodium [Protonix] 40 mg PO DAILY 05/17/16 [History] Trazodone HCl 100 - 200 mg PO HS 05/17/16 [History] Tizanidine HCl [Tizanidine HCl] 4 mg PO Q8H 04/15/17 [History] 3 Allergy/AdvReac Type Severity Reaction Status Date / Time acetaminophen AdvReac Itching Verified 04/15/17 09:56 [From Darvocet-N] enalaprilat [From Vasotec] AdvReac Weakness Verified 04/15/17 09:56 propoxyphene AdvReac Itching Verified 04/15/17 09:56 [From Darvocet-N] simvastatin [From Zocor] AdvReac Fainting Verified 04/15/17 09:56 All Systems: A 10-system review of systems was performed and is negative for pertinent findings except as documented above in the HPI. Physical Examination - Vital Signs Vital Signs: Initial Vital Signs Pulse 83 04/14/17 20:00 - Constitutional General appearance: comfortable - Neurologic Detailed motor examination: full strength in all major muscle groups Motor examination - right side: 5/5: deltoids, biceps, triceps, wrist flexion, wrist extension, pin puller, hip flexors, tibialis Anterior, quadriceps, toe extension (EHL), plantarflexion Motor examination - left side: 5/5: deltoids, biceps, triceps, wrist flexion, wrist extension, hip flexors, pin puller, quadriceps, tibialis Anterior, toe extension (EHL), plantarflexion Reflexes: Biceps: 1+, Triceps: 1+, Brachioradialis: 1+, Patella: 1+, Achilles: 1 + Mental Status Examination: awake, alert, oriented to person, oriented to place, oriented to time, follows commands appropriately, answers questions appropriately, no agnosia, no aphasia, no aproxia Cranial nerve examination: PERRL, EOMI, visual moses intact, corneal reflexes brisk symmetrically, sensory to face intact, mastication intact, no facial asymmetry is present, no dysarthria, hearing is intact symmetrically, soft palate elevates bilaterally upon phonation, gag reflex intact, flexes SCM and trapezius muscles symmetrically with full power, tongue protrudes midline, no atrophy or facial fasiculations present Cerebellar examination: no dysmetria, performs finger to nose and heel to gutierrez symmetrically without ataxia, no gait ataxia, no truncal ataxia, no difficulty with rapid alternating movements Results - Laboratory Findings CBC and BMP: 04/19/17 03:26 04/19/17 04:01 Abnormal lab findings: Abnormal lab results RBC 3.77 M/mcL (4.19-5.50) L 04/17/17 06:26 Hgb 12.0 g/dL (12.9-16.9) L D 04/17/17 06:26 Hct 34.4 % (37.5-50.1) L 04/17/17 06:26 PT 12.8 Seconds (9.4-12.1) H 04/14/17 19:53 ABG pO2 66 mmHg (85-104) L 04/16/17 09:42 ABG Total CO2 29 mEq/L (20-26) H 04/16/17 09:42 ABG O2 Saturation 93 % (95-98) L 04/16/17 09:42 Potassium 3.4 mEq/L (3.5-4.5) L 04/17/17 06:26 Glucose 131 mg/dL (70-99) H 04/17/17 06:26 POC Glucose 230 (58-89) H 04/16/17 09:39 Magnesium 1.5 mg/dL (1.6-2.6) L 04/17/17 06:26 Troponin I 48.79 ng/mL (0-0.03) H* 04/15/17 08:14 Triglycerides 154 mg/dL (< 150) H 04/15/17 02:28 VLDL Cholesterol, Calc 31 mg/dL (< 31) H 04/15/17 02:28 HDL Cholesterol 31 mg/dL (40-59) L 04/15/17 02:28 Prolactin 49.22 ng/mL (3.46-19.40) H 04/16/17 09:42 Ur Specific [place] > 1.030 (1.010-1.025) H 04/16/17 16:35 Urine Protein 100 mg/dL (Neg-Trace) H 04/16/17 16:35 Urine Glucose (UA) 250 mg/dL (Normal) H 04/16/17 16:35 Urine Blood Moderate (Negative) H 04/16/17 16:35 Urine Nitrite Positive (Negative) A 04/16/17 16:35 Urine Bilirubin Small (Negative) H 04/16/17 16:35 Urine Microscopic RBC 5-15 per hpf (0-3) H 04/16/17 16:35 Ur Squamous Epith Cells Moderate per lpf (None-Few) H 04/16/17 16:35 Ur Culture Indicated? YES (NO) A 04/16/17 16:35 Consult Discharge Plan - Plan Referrals: matt, Cardiology [Other] (Office will call patient at home with follow up appointment) Minh Pierce MD [Primary Care Provider] - 04/23/17 11:30 am
[2017-04-17] MEDS: Fluticasone Propionate Nasal 50 MCG/SPRAY BOTTLE NS SCH (09:25)
[2017-04-17] MEDS: Isosorbide MONOnitrate (24 HR) 60 MG TAB.ER.24H PO SCH (09:26)
[2017-04-17] MEDS: amLODIPine 5 MG TABLET PO SCH (09:26)
[2017-04-17] MEDS: Aspirin Enteric Coated 81 MG Tablet PO SCH (09:26)
[2017-04-17] MEDS: Multivit/Ca/Min/Fe/FA 1 TAB TABLET PO SCH (09:26)
[2017-04-17] MEDS ORDERED: Potassium Chloride Elixir 20 MEQ/15 ML UDC PO ONE (10:23)
[2017-04-17 11:33] LABS: Thyroid Stimulating Hormone 0.818 mcIU/mL (0.350-4.840)
--- NOTE | 2017-04-17 11:34 | EEG/EMG/Oth Biometrics Report ---
EEG Procedure Report Date of procedure: 04/17/17 EEG Procedure: Routine EEG Procedure Note: Routine 18-channel digital EEG was obtained to rule out any seizure activity or focal abnormalities. FINDINGS: Background rhythm during awake stage shows well-organized, well- developed, average voltage 8 to 9 hertz alpha activity in the posterior regions. It blocks with eye opening and it is bilaterally synchronous and symmetrical. No [id number] discharges or any lateralizing abnormalities are seen. Photic stimulation did not produce any abnormalities. Hyperventilation was not performed. No abnormalities were found during the procedure. Intermittent EMG artifacts were seen. Stage II sleep was not achieved. IMPRESSION: low amplitude Normal awake study. No epileptiform discharges or any other paroxysmal activities or focal abnormalities seen. Clinical correlation is recommended.
[2017-04-17 12:45] LABS: Folate 11.2 ng/mL (7.0-31.4)
[2017-04-17] MEDS ORDERED: Cyanocobalamin (B-12) 1,000 MCG/ML VIAL IM ONE ×2 (13:49→14:15)
[2017-04-17] MEDS ORDERED: 0.9 % Sodium Chloride 1,000 ML IVC SCH (15:30)
[2017-04-17] MEDS: Folic Acid 1 MG TABLET PO SCH (15:46)
[2017-04-17] MEDS: Nitroglycerin 0.4 MG TAB.SUBL SL PRN ×3 (17:45→17:57)
[2017-04-17] MEDS: Nitroglycerin 1 INCH/GM PACKET TP SCH (18:08)
--- NOTE | 2017-04-17 18:48 | Event Note ---
Date of Encounter: 04/17/17 Time of Encounter: 18:15 I examined this patient and my medical decision-making was reviewed with the Resident Physician on 04/17/17. I agree with the documented findings, disposition and treatment plan as described except to the extent set forth below. Mr Rosario is currently admitted for acute NSTEMI. He also has acute C diff diarrhea which was present on admission. He remains moderate to high risk due to potential for worsening clinical status. Mr Rosario was doing OK this AM. No fever or chills. No further diarrhea. He developed chest pain this evening and had EKG changes consistent with ischemia. He was given nitro and paste started. CTA of chest ordered. He has improved at this time. Exam Alert. Comfortable now. Mucus membranes dry Heart reg - tachy Lungs clear Chest pain reproducible Abd soft EKG anterior ST depression noted. I/P 1. [place] - nitro given. CTA ordered Troponin ordered. 2. C diff diarrhea 3. NSTEMI Further diagnoses and plan as per progress note of this date.
[2017-04-17] MEDS: clonazePAM 0.5 MG TABLET PO SCH (21:06)
[2017-04-17] MEDS: traZODone 50 MG TABLET PO SCH (21:07)
[2017-04-17] MEDS: Mirtazapine 15 MG TABLET PO SCH (21:07)
--- NOTE | 2017-04-17 21:54 | Internal Med Progress Note ---
<Nina Lawson - Last Filed: 04/17/17 21:52> Date of Encounter: 04/17/17 Time of Encounter: 10:00 - Assessment and plan (1) Unresponsive episode Current Visit: Yes Status: Resolved Assessment and plan: Etiology unclear at this time--CT head negative for acute intracranial abnormality Prolactin elevated @ 49.22 No further reported episodes Echo showed EF of 50% on 04/16/17 EEG initial reading was wnl. No seizure activity Plan: Neuro consulted, appreciate recommendations Recommend TSH, B12, folate levels. Pending (2) Non-ST elevation [place] (NSTEMI) Current Visit: Yes Status: Acute Assessment and plan: s/p LHC (04/14/17)--100% LAD stenosis, WRIGHT to LAD patent, 80% proximal circ stenosis with RANDEE placed, 100% Proximal RCA, 3 of 4 saphenous vein graphs occluded 04/16/17 Limited echo--LVEF 50%, low normal LV systolic function, not all wall segments well visualized Plan: Continue dual anti-platelet therapy Continue medical management with ASA, statin, BB, imdur, plavix (3) Coronary artery disease Current Visit: Yes Status: Chronic Assessment and plan: Continue medical management with dual antiplatelet therapy, statin, BB, imdur Qualifiers: Coronary Disease-Associated Artery/Lesion type: bypass graft [place] vs. transplanted heart: [place] heart Associated angina: with unstable angina Qualified Code(s): I25.700 - Atherosclerosis of coronary artery bypass graft(s) , unspecified, with unstable angina pectoris (4) C. difficile diarrhea Current Visit: Yes Status: Acute Assessment and plan: Stool + for C. diff toxin B Plan: Continue flagyl 500mg PO BID (day 2) (5) Hx of CABG Current Visit: No Status: Chronic Assessment and plan: Saphenous vein grafts x 3 Internal mammary graft x 1 (6) Hypothyroidism Current Visit: Yes Status: Chronic Assessment and plan: Continue synthroid Qualifiers: Hypothyroidism type: acquired Qualified Code(s): E03.9 - Hypothyroidism, unspecified (7) Hypertension Current Visit: Yes Status: Chronic Assessment and plan: BP 114/75 this AM Plan: Monitor blood pressures Continue imdur 60mg PO daily Continue lopressor 25mg PO BID Qualifiers: Hypertension type: essential hypertension Qualified Code(s): I10 - Essential (primary) hypertension (8) Peripheral vascular disease Current Visit: Yes Status: Chronic Assessment and plan: Chronic issue. Management as outpatient (9) Depression Current Visit: Yes Status: Chronic Assessment and plan: Chronic issue. Management as outpatient. Stable. Qualifiers: Depression Type: major depressive disorder Major depression recurrence: recurrent Active/Remission status: currently active Major depression episode severity: mild Qualified Code(s): F33.0 - Major depressive disorder, recurrent, mild (10) Dementia Current Visit: Yes Status: Chronic Assessment and plan: Continue memantine Qualifiers: Dementia type: Alzheimer's disease Alzheimer's disease onset: early-onset Dementia behavioral disturbance: without behavioral disturbance Qualified Code(s): G30.0 - Alzheimer's disease with early onset; F02.80 - Dementia in other diseases classified elsewhere without behavioral disturbance; F02.80 - Dementia in other diseases classified elsewhere without behavioral disturbance; F02.80 - Dementia in other diseases classified elsewhere without behavioral disturbance (11) Tobacco abuse Current Visit: Yes Status: Chronic Assessment and plan: Cessation counselling - Subjective Interval history: Patient seen and examined today at bedside, he is resting comfortably in bed. Patient has no complaints at time of exam and states he feels better than he did yesterday. He denies chest pain, dyspnea, fever, chills, nausea, abdominal pain. - Constitutional Vitals: Temp Pulse Resp BP Pulse Ox 98.6 F 108 22 151/95 90 04/17/17 18:58 04/17/17 18:58 04/17/17 18:58 04/17/17 18:58 04/17/17 15:58 General appearance: Present: cooperative, A&O X 3, answers questions appropriately - Head Head exam: Present: atraumatic, normocephalic - Neck Neck exam general surgery: Present: full ROM, supple - Respiratory Respiratory exam: Present: decreased breath sounds, wheezes (bilaterally). Absent: accessory muscle use, respiratory distress - Cardiovascular Cardiovascular exam: Present: RRR, +S1, +S2. Absent: diastolic murmur, systolic murmur - GI/Abdominal GI/Abdominal exam: Present: normal bowel sounds, soft. Absent: distended, guarding, rebound, rigid, tenderness - Neurological Exam Neurological exam: Present: alert, oriented X3, no focal deficits. Absent: facial droop, speech deficit Internal Medicine: Result - Labs CBC & Chem 7: 04/17/17 06:26 04/17/17 06:26 Labs: Short CBC 04/17/17 Range/Units 06:26 WBC 9.9 (4.3-11.1) K/mcL Hgb 12.0 L D (12.9-16.9) g/dL Hct 34.4 L (37.5-50.1) % Plt Count 141 (140-400) K/mcL Neutrophils # 6.8 (1.6-8.9) K/mcL BMP 04/17/17 06:26 Sodium 142 Potassium 3.4 L Chloride 106 Carbon Dioxide 27 BUN 18 Creatinine 1.08 Glucose 131 H Calcium 8.6 Cardiac Enzymes 04/17/17 Range/Units 19:23 Troponin I 12.69 H* (0-0.03) ng/mL - ABG Interpretation ABG results: ABG ABG pH 7.44 pH Units (7.32-7.45) 04/16/17 09:42 ABG pCO2 40 mmHg (35-45) 04/16/17 09:42 ABG pO2 66 mmHg (85-104) L 04/16/17 09:42 ABG O2 Saturation 93 % (95-98) L 04/16/17 09:42 PT/INR, D-dimer PT 12.8 Seconds (9.4-12.1) H 04/14/17 19:53 - Impressions Impressions Head CT 04/16/17 09:39 IMPRESSION: No acute intracranial abnormality. D/ /16/2017 11:06:17 Emil Clark MD / [place] Interpreting Provider: Emil Clark MD Chest CTA 04/17/17 17:55 IMPRESSION: 1. No evidence of pulmonary embolic disease. 2. No acute pulmonary findings. Probable small focus of atelectasis within the right middle lobe laterally. Mild emphysematous changes. Trace bilateral pleural effusions with mild dependent bibasilar volume loss. 3. Ascending aortic aneurysm at 4.3 cm maximally. Prominent atherosclerotic changes in the aorta and coronary circulation. D/ / 04/17/2017 18:55:21 Ken Gutierrez MD / [place] Interpreting Provider: Ken Gutierrez MD - VTE Documentation of Mechanical Device: Graduated compression elastic hosiery Consult Discharge Plan - Plan Referrals: matt, Cardiology [Other] (Office will call patient at home with follow up appointment) Minh Pierce MD [Primary Care Provider] - 04/23/17 11:30 am <Cj Ewing - Last Filed: 04/18/17 15:24> Date of Encounter: 04/17/17 - Assessment and plan (1) Unresponsive episode Current Visit: Yes Status: Resolved (2) C. difficile diarrhea Current Visit: Yes Status: Acute (3) Non-ST elevation [place] (NSTEMI) Current Visit: Yes Status: Acute (4) Coronary artery disease Current Visit: Yes Status: Chronic Qualifiers: Coronary Disease-Associated Artery/Lesion type: bypass graft [place] vs. transplanted heart: [place] heart Associated angina: with unstable angina Qualified Code(s): I25.700 - Atherosclerosis of coronary artery bypass graft(s) , unspecified, with unstable angina pectoris (5) Tobacco abuse Current Visit: Yes Status: Chronic (6) Hx of CABG Current Visit: No Status: Chronic (7) Hypothyroidism Current Visit: Yes Status: Chronic Qualifiers: Hypothyroidism type: acquired Qualified Code(s): E03.9 - Hypothyroidism, unspecified (8) Hypertension Current Visit: Yes Status: Chronic Qualifiers: Hypertension type: essential hypertension Qualified Code(s): I10 - Essential (primary) hypertension (9) Peripheral vascular disease Current Visit: Yes Status: Chronic (10) Depression Current Visit: Yes Status: Chronic Qualifiers: Depression Type: major depressive disorder Major depression recurrence: recurrent Active/Remission status: currently active Major depression episode severity: mild Qualified Code(s): F33.0 - Major depressive disorder, recurrent, mild (11) Dementia Current Visit: Yes Status: Chronic Qualifiers: Dementia type: Alzheimer's disease Alzheimer's disease onset: early-onset Dementia behavioral disturbance: without behavioral disturbance Qualified Code(s): G30.0 - Alzheimer's disease with early onset; F02.80 - Dementia in other diseases classified elsewhere without behavioral disturbance; F02.80 - Dementia in other diseases classified elsewhere without behavioral disturbance; F02.80 - Dementia in other diseases classified elsewhere without behavioral disturbance - Constitutional Vitals: Temp Pulse Resp BP Pulse Ox 98 F 78 23 85/65 99 04/18/17 14:25 04/18/17 15:00 04/18/17 15:00 04/18/17 15:00 04/18/17 15:00 Internal Medicine: Result - Labs CBC & Chem 7: 04/18/17 04:55 04/18/17 04:55 Labs: Short CBC 04/18/17 Range/Units 04:55 WBC 13.1 H (4.3-11.1) K/mcL Hgb 12.5 L (12.9-16.9) g/dL Hct 36.8 L (37.5-50.1) % Plt Count 188 (140-400) K/mcL Neutrophils # 11.9 H (1.6-8.9) K/mcL BMP 04/18/17 04:55 Sodium 142 Potassium 4.5 D Chloride 106 Carbon Dioxide 24 BUN 23 Creatinine 1.36 H Glucose 292 H Calcium 8.7 Cardiac Enzymes 04/17/17 04/18/17 Range/Units 19:23 09:42 Troponin I 12.69 H* 24.39 H* (0-0.03) ng/mL - ABG Interpretation ABG results: ABG ABG pH 7.33 pH Units (7.32-7.45) 04/18/17 09:01 ABG pCO2 47 mmHg (35-45) H 04/18/17 09:01 ABG pO2 355 mmHg (85-104) H 04/18/17 09:01 ABG O2 Saturation 100 % (95-98) H 04/18/17 09:01 PT/INR, D-dimer PT 12.8 Seconds (9.4-12.1) H 04/14/17 19:53 - Impressions Impressions Chest CTA 04/17/17 17:55 IMPRESSION: 1. No evidence of pulmonary embolic disease. 2. No acute pulmonary findings. Probable small focus of atelectasis within the right middle lobe laterally. Mild emphysematous changes. Trace bilateral pleural effusions with mild dependent bibasilar volume loss. 3. Ascending aortic aneurysm at 4.3 cm maximally. Prominent atherosclerotic changes in the aorta and coronary circulation. D/ / 04/17/2017 18:55:21 Ken Gutierrez MD / [place] Interpreting Provider: Ken Gutierrez MD Chest X-Ray 04/18/17 03:33 IMPRESSION: Pulmonary edema. D/ / Faustino Zheng MD / Faustino Zheng MD Interpreting Provider: Faustino Zheng MD Chest X-Ray 04/18/17 07:41 IMPRESSION: 1. Interval placement of endotracheal and orogastric tubes, in satisfactory positions. 2. Slight interval worsening of mild CHF. 3. Interval worsening of multifocal airspace opacity, most likely a combination of asymmetric edema and superimposed pneumonia. D/ / 04/18/2017 08:16:13 [facility]: Albino Odonnell MD KUB X-Ray 04/18/17 07:52 IMPRESSION: 1. Orogastric tube in satisfactory position within the stomach. 2. Nonspecific bowel gas pattern, without evidence of free air. D/ / 04/18/2017 08:16:20 Albino Odonnell MD / [facility] Interpreting Provider: Albino Odonnell MD - Attending Attestation I examined this patient and my medical decision-making was reviewed with the Resident Physician on 04/17/17. I agree with the documented findings, disposition and treatment plan as described except to the extent set forth below. Please see event note of this date.
[2017-04-18] MEDS: *HR* OxyCODONE/APAP 10/325 TABLET PO PRN (00:03)
[2017-04-18] MEDS ORDERED: *HR* Morphine 2 MG/ML SYRINGE IVP ONE (01:52)
[2017-04-18] MEDS ORDERED: *HR* Metoprolol 5 MG/5 ML VIAL IVP ONE (02:06)
[2017-04-18] MEDS ORDERED: *HR* LORazepam 2 MG/ML VIAL IVP ONE ×2 (02:06→07:29)
[2017-04-18] MEDS: Ipratropium/Albuterol Neb 3 ML IH SCH (03:24)
[2017-04-18] MEDS ORDERED: methylPREDNISolone 125 MG/2 ML VIAL IVP ONE (03:35)
--- NOTE | 2017-04-18 03:56 | Event Note ---
Date of Encounter: 04/18/17 Time of Encounter: 03:55 Respiratory failure secondary to pulmonary congestion. Alton the patient's nurse called us to come evaluate the patient. Upon arrival the patient was tachypniec , tachyardic, and agitated. He was using accessory muscles to breathe and was fidgety and agitated with moving around in bed. His supplemental oxygen need went from 2L to 6L and was at 94% at this point. Respiratory therapy gave the patient a duoneb and then placed him on bipap.The patient was A&O x3. He was complaining of increased chest pain and difficulty breathing. He had wheezing throughout lungs. Chest X-ray demonstrated pulmonary congestion. EKG showed no new changes from prior one earlier in night. The nursing staff was concerned about the patient's need for closer attention and care. It was decided that the patient would then be transferred to ICU.
[2017-04-18] MEDS: metroNIDAZOLE 500 MG TABLET PO SCH ×3 (05:01→20:38)
[2017-04-18] MEDS: Nitroglycerin 1 INCH/GM PACKET TP SCH ×2 (05:01→12:25)
[2017-04-18 05:08] LABS: Basophils % 0.2 %; Hematocrit 36.8 % (37.5-50.1); Hemoglobin 12.5 g/dL (12.9-16.9); Immature Granulocytes % 0.4 % (0-4); Lymphocytes # 0.5 K/mcL (0.6-4.6); Mean Corpuscular Hemoglobin 31.7 pg (28.0-33.3); Mean Corpuscular Volume 93.4 fL (83.0-100.0); Mean Platelet Volume 10.5 fL (9.4-12.4); Monocytes # 0.6 K/mcL (0.0-1.3); Monocytes % 4.8 %; Neutrophils # 11.9 K/mcL (1.6-8.9); Platelet Count 188 K/mcL (140-400); Red Blood Count 3.94 M/mcL (4.19-5.50); Red Cell Distribution Width 13.2 % (11.5-14.5); Segmented Neutrophils % 90.6 %
[2017-04-18 05:24] LABS: BUN/Creatinine Ratio 17 (6-26); Blood Urea Nitrogen 23 mg/dL (8-26); Calcium 8.7 mg/dL (8.6-10.8); Carbon Dioxide 24 mEq/L (19-29); Chloride 106 mEq/L (98-109); Glucose 292 mg/dL (70-99); Magnesium 1.8 mg/dL (1.6-2.6); Osmolality,Calculated 308 (280-300); Potassium 4.5 mEq/L (3.5-4.5); Sodium 142 mEq/L (136-145); eGFR For African Americans > 60 (> 60); eGFR For Non-African Americans 51 (> 60)
[2017-04-18] MEDS: Levalbuterol Neb 1.25 MG/3 ML IH SCH ×3 (05:26→16:13)
[2017-04-18] MEDS: Furosemide 40 MG/4 ML VIAL IVP SCH ×2 (05:26→17:29)
[2017-04-18] MEDS ORDERED: Dexmedetomidine HCl 400 MCG/100 ML MLS IVC SCH (07:30)
[2017-04-18] MEDS ORDERED: *HR* LORazepam 2 MG/ML VIAL ONE (07:33)
[2017-04-18] MEDS ORDERED: Lacri-Lube 3.5 GM TUBE BOTH EYES PRN (07:46)
[2017-04-18] MEDS ORDERED: *HR* Metoprolol 5 MG/5 ML VIAL IVP PRN (07:58)
[2017-04-18] MEDS ORDERED: *HR* Midazolam HCl 5 MG/5 ML VIAL IVP ONE (07:59)
[2017-04-18] MEDS: *HR* Midazolam HCl 2 MG/2 ML VIAL IVP PRN ×2 (08:01→08:06)
[2017-04-18] MEDS: Dexmedetomidine HCl 400 MCG/100 ML MLS IVC SCH ×2 (08:02→17:33)
[2017-04-18] MEDS: FentaNYL (PF) 1,000 MCG in 0.9 % Sodium Chloride 80 ML IVC SCH ×2 (08:11→23:56)
[2017-04-18] MEDS: Isosorbide MONOnitrate (24 HR) 60 MG TAB.ER.24H PO SCH (08:40)
[2017-04-18] MEDS: amLODIPine 5 MG TABLET PO SCH (08:40)
[2017-04-18] MEDS: Multivit/Ca/Min/Fe/FA 1 TAB TABLET PO SCH (08:40)
[2017-04-18] MEDS: Folic Acid 1 MG TABLET PO SCH (08:41)
[2017-04-18] MEDS: Chlorhexidine Rinse 15 ML MOUTHWASH MM SCH ×2 (08:41→20:39)
[2017-04-18] MEDS: Lacri-Lube 3.5 GM TUBE BOTH EYES SCH ×5 (08:41→23:54)
[2017-04-18] MEDS: Aspirin Enteric Coated 81 MG Tablet PO SCH (08:41)
[2017-04-18] MEDS: Fluticasone Propionate Nasal 50 MCG/SPRAY BOTTLE NS SCH (08:43)
--- NOTE | 2017-04-18 08:52 | Event Note ---
<Norma Nash H - Last Filed: 04/18/17 08:39> Date of Encounter: 04/18/17 Time of Encounter: 08:39 Date: 04/17/2017 Time: Approximately 8 AM Indication: Respiratory distress with use of accessory muscles Resident: Norma Nash MD Attending: Dr. Jarrett At approximately 8 AM, we were called to the bedside as the patient was in respiratory stress, agitated and anxious, and using accessory muscles. The patient was receiving 15 L oxygen by nasal cannula. The patient was premedicated with 2 mg of Versed. The patient was placed in a flat position and a pillow was placed under his neck for optimal neck positioning. 20 mg of etomidate was given. Appropriate sedation was achieved. An oral airway was placed first while the patient was bag ventilated. A 3 Mac blade was then inserted into the patient's mouth. Vocal cords were visualized by direct visualization. A 7-1/2 endotracheal tube was then seen passing through the vocal cords, at which time the stylette was removed. The balloon cuff was inflated. Appropriate colorimetric change was visualized and condensation was seen inside the tube. Bilateral breath sounds were auscultated. The tube was placed at 24 cm at the angle of the mouth. Dr. Jarrett was present for the entire procedure. A chest x-ray was subsequently ordered to assess for proper endotracheal tube placement. The patient tolerated the procedure well and there were no complications. <Blayne Chirinos M - Last Filed: 04/18/17 09:22> Date of Encounter: 04/18/17 I examined this patient and my medical decision-making was reviewed with the Resident Physician. I agree with the documented findings, disposition and treatment plan as described except to the extent set forth below. I have personally supervised Dr. Green doing procedure without immediate complications.
[2017-04-18] MEDS ORDERED: Furosemide 40 MG/4 ML VIAL IVP SCH (09:00)
[2017-04-18 09:05] LABS: ABG Base Excess -1 mEq/L (-2 to 3); ABG HCO3 25 mEq/L (21-27); ABG Oxygen Saturation 100 % (95-98); ABG PCO2 47 mmHg (35-45); ABG PH 7.33 pH Units (7.32-7.45); ABG PO2 355 mmHg (85-104); ABG TCO2 26 mEq/L (20-26); Blood Gas Modality ASSIST CONTROL; Blood Gas PEEP 5 cm H2O; Blood Gas Respiration Rate 12; Blood Gas VT 500 cc
--- NOTE | 2017-04-18 09:27 | Pulmonology Progress Note ---
Date of Encounter: 04/18/17 Time of Encounter: 09:25 Assessment and Plan (1) Acute respiratory failure Current Visit: Yes Status: Acute Subjective Principal diagnosis: NSTEMI Interval history: Patient transferred to the ICU overnight after becoming to get neck, anxious, and hypoxic on the floor. Patient was started on BiPAP, given Lasix, given duo nebs. This morning, patient was anxious, tachypnea, with use of accessory muscles. He appeared to be in respiratory distress. The patient was endotracheally intubated. Objective PUL Vital signs: Last Vital Signs Temp 97.7 F 04/18/17 07:42 Pulse 100 04/18/17 08:00 Resp 23 04/18/17 09:08 BP 118/110 04/18/17 09:08 Pulse Ox 98 04/18/17 09:08 General appearance: other (sedated and intubated. Will respond to commands) Eyes: nonicteric ENT: oropharynx moist Neck: supple Effort: other (intubated with mechanical ventilation) Auscultation: bilateral: wheezes, rales Cardiovascular: regular rate and rhythm (Tachycardic prior to intubation, HR 85 and regular after intubation.) Gastrointestinal: normoactive bowel sounds, soft, non-tender, non-distended Integumentary: normal Extremities: no cyanosis, no edema, no clubbing Ventilator Settings Ventilator Settings: Ventilator Settings, Last 8 Hours Ventilator Mode A/C Ventilator Mode A/C Ventilator Mode A/C Ventilator Mode A/C Ventilator Tidal Volume 500 Setting Ventilator Tidal Volume 500 Setting Ventilator Tidal Volume 500 Setting Ventilator Tidal Volume 500 Setting Ventilator Respiratory Rate 12 Setting Ventilator Respiratory Rate 12 Setting Ventilator Respiratory Rate 12 Setting Ventilator Respiratory Rate 12 Setting Actual Respiratory Rate 23 Actual Respiratory Rate 34 Actual Respiratory Rate 29 Positive End Expiratory 5 Pressure Positive End Expiratory 5 Pressure Positive End Expiratory 5 Pressure Positive End Expiratory 5 Pressure Peak Inspiratory Airway 18 Pressure Peak Inspiratory Airway 44 Pressure Peak Inspiratory Airway 41 Pressure Results - Laboratory Findings CBC and BMP: 04/18/17 04:55 04/18/17 04:55 ABG ABG pH 7.33 pH Units (7.32-7.45) 04/18/17 09:01 ABG pCO2 47 mmHg (35-45) H 04/18/17 09:01 ABG pO2 355 mmHg (85-104) H 04/18/17 09:01 ABG O2 Saturation 100 % (95-98) H 04/18/17 09:01 PT/INR, D-dimer PT 12.8 Seconds (9.4-12.1) H 04/14/17 19:53 Abnormal lab findings: Abnormal lab results WBC 13.1 K/mcL (4.3-11.1) H 04/18/17 04:55 RBC 3.94 M/mcL (4.19-5.50) L 04/18/17 04:55 Hgb 12.5 g/dL (12.9-16.9) L 04/18/17 04:55 Hct 36.8 % (37.5-50.1) L 04/18/17 04:55 Neutrophils # 11.9 K/mcL (1.6-8.9) H 04/18/17 04:55 Lymphocytes # 0.5 K/mcL (0.6-4.6) L 04/18/17 04:55 PT 12.8 Seconds (9.4-12.1) H 04/14/17 19:53 ABG pCO2 47 mmHg (35-45) H 04/18/17 09:01 ABG pO2 355 mmHg (85-104) H 04/18/17 09:01 ABG O2 Saturation 100 % (95-98) H 04/18/17 09:01 Creatinine 1.36 mg/dL (0.72-1.25) H 04/18/17 04:55 Est GFR (Non-Af Amer) 51 (> 60) L 04/18/17 04:55 Glucose 292 mg/dL (70-99) H 04/18/17 04:55 POC Glucose 288 (58-89) H 04/18/17 04:40 Calculated Osmolality 308 (280-300) H 04/18/17 04:55 Troponin I 12.69 ng/mL (0-0.03) H* 04/17/17 19:23 Triglycerides 154 mg/dL (< 150) H 04/15/17 02:28 VLDL Cholesterol, Calc 31 mg/dL (< 31) H 04/15/17 02:28 HDL Cholesterol 31 mg/dL (40-59) L 04/15/17 02:28 Vitamin B12 180 pg/mL (213-816) L 04/17/17 10:48 Prolactin 49.22 ng/mL (3.46-19.40) H 04/16/17 09:42 Ur Specific Eads > 1.030 (1.010-1.025) H 04/16/17 16:35 Urine Protein 100 mg/dL (Neg-Trace) H 04/16/17 16:35 Urine Glucose (UA) 250 mg/dL (Normal) H 04/16/17 16:35 Urine Blood Moderate (Negative) H 04/16/17 16:35 Urine Nitrite Positive (Negative) A 04/16/17 16:35 Urine Bilirubin Small (Negative) H 04/16/17 16:35 Urine Microscopic RBC 5-15 per hpf (0-3) H 04/16/17 16:35 Ur Squamous Epith Cells Moderate per lpf (None-Few) H 04/16/17 16:35 Ur Culture Indicated? YES (NO) A 04/16/17 16:35 - Microbiology Findings Microbiology Findings: Microbiology, Last 48 Hours 04/16/17 09:42 Blood Culture - Preliminary Peripheral Venipuncture No growth. 04/16/17 09:42 Blood Culture - Preliminary Peripheral Venipuncture No growth. 04/16/17 16:35 Urine Culture - Final Urine,Clean Catch No growth. - Clinical Findings Intake & Output: Intake & Output 04/17/17 04/18/17 04/18/17 23:59 07:59 15:59 Intake Total 120 / 120 50 / 50 Output Total 250 / 250 525 / 525 Balance -130 / -130 -475 / -475 - VTE Documentation of Mechanical Device: Graduated compression elastic hosiery Consult Discharge Plan - Plan Referrals: matt, Cardiology [Other] (Office will call patient at home with follow up appointment) Minh Pierce MD [Primary Care Provider] - 04/23/17 11:30 am
[2017-04-18] MEDS: Aspirin 81 MG TAB.CHEW PO SCH (09:28)
[2017-04-18] MEDS: Pantoprazole 40 MG VIAL IVP SCH (09:29)
--- NOTE | 2017-04-18 09:50 | Pulmonology Consult Note ---
<Norma Nash - Last Filed: 04/18/17 11:04> Date of Encounter: 04/18/17 Time of Encounter: 09:31 Assessment and Plan (1) Acute respiratory failure Current Visit: Yes Status: Acute Patient being treated for an NSTEMI status post C yesterday on 04/17/2017. -Endotracheal intubated on 04/18/2017. -Vent bundle, fentanyl and Precedex for sedation. -ABG shows pH of 7.33, PCO2 of 47, O2 of 355, and bicarbonate of 25. -Suspect cardiogenic pulmonary edema as patient with significant Rales on examination as well as froth seen coming out of the endotracheal tube. -Chest x-ray on 04/18/2017 shows pulmonary edema. -Repeat EKG on 04/18/2017 shows failure of QRS progression in lateral leads and low QRS voltage. -Follow-up stat troponin. -FU limited echo -Cardiology following. Appreciate their recommendations. Qualifiers: Respiratory failure complication: hypoxia and hypercapnia Qualified Code(s) : J96.01 - Acute respiratory failure with hypoxia; J96.02 - Acute respiratory failure with hypercapnia; J96.02 - Acute respiratory failure with hypercapnia; J96.02 - Acute respiratory failure with hypercapnia (2) Non-ST elevation [place] (NSTEMI) Current Visit: Yes Status: Acute Status post left heart catheter on 04/14/2017 for NSTEMI. - TTE with LVEF normal. -Patient with ischemic changes on ECG when tachycardic. Chest x-ray shows pulmonary edema. -Recent troponin up trending at 24.4. -Per cardiology, with patient changing condition and upward trending troponin, they recommend a repeat diagnostic [facility]. -repeat TTE -Heparin drip. -Spoke with durable power of compliance attorneyMarnie. She has instructed calls to her home phone number as her cell phone is turned off. (3) Unresponsive episode Current Visit: Yes Status: Resolved Patient with unresponsive episode on 04/16/2017. CT head negative for acute intracranial abnormality. -No further reported episodes. -EEG within normal limits. -Neurology on board, appreciate recommendations. (4) Coronary artery disease Current Visit: Yes Status: Chronic Continue medical management with dual antiplatelet therapy, statin, beta corrie , and Imdur. -Patient to return to Social Service Agency Director today. Qualifiers: Coronary Disease-Associated Artery/Lesion type: bypass graft [place] vs. transplanted heart: [place] heart Associated angina: with unstable angina Qualified Code(s): I25.700 - Atherosclerosis of coronary artery bypass graft(s) , unspecified, with unstable angina pectoris (5) C. difficile diarrhea Current Visit: Yes Status: Acute Stool positive for C. difficile toxin B. -Continue Flagyl 500 mg by mouth every 8hours, day #3 (6) Hx of CABG Current Visit: No Status: Chronic Patient with four-vessel CABG in 2008. (7) Hypothyroidism Current Visit: Yes Status: Chronic Continue Synthroid. Qualifiers: Hypothyroidism type: acquired Qualified Code(s): E03.9 - Hypothyroidism, unspecified (8) Hypertension Current Visit: Yes Status: Chronic Patient with hypotension this morning 84/63. -continue to monitor. -continue BB -continue imbdur 60mg PO daily Qualifiers: Hypertension type: essential hypertension Qualified Code(s): I10 - Essential (primary) hypertension (9) Peripheral vascular disease Current Visit: Yes Status: Chronic Chronic issue. -management as outpatient. (10) Depression Current Visit: Yes Status: Chronic Chronic issue. -management as outpatient. -Stable Qualifiers: Depression Type: major depressive disorder Major depression recurrence: recurrent Active/Remission status: currently active Major depression episode severity: mild Qualified Code(s): F33.0 - Major depressive disorder, recurrent, mild (11) Dementia Current Visit: Yes Status: Chronic Continue memantine. Qualifiers: Dementia type: Alzheimer's disease Alzheimer's disease onset: early-onset Dementia behavioral disturbance: without behavioral disturbance Qualified Code(s): G30.0 - Alzheimer's disease with early onset; F02.80 - Dementia in other diseases classified elsewhere without behavioral disturbance; F02.80 - Dementia in other diseases classified elsewhere without behavioral disturbance; F02.80 - Dementia in other diseases classified elsewhere without behavioral disturbance (12) DVT prophylaxis Current Visit: Yes Status: Acute -heparin drip ordered by cardiology. -protonix 40mg IV daily History of Present Illness Consult date: 04/18/17 Requesting physician: Sekou Thorne Reason for consult: dyspnea Chief complaint: Acute respiratory failure History of present illness: Mr. Rosario is a 71-year-old male with past medical history of coronary artery disease status post CABG and stents, hypertension, dementia, hypothyroidism, hyperlipidemia, peripheral vascular disease, AAA status post repair, anxiety and depression with a history of GI bleed. Patient presented to [facility] on 04/14/2017 as a transfer from [facility] for chest pain. Patient was admitted with elevated troponin, shortness of breath, and chest pain. Patient underwent emergent left heart catheter. Patient had successful PTCA/DS to proximal circumflex. Only one of 4 bypass grafts were patent. Patient was started on dual antiplatelet therapy. A repeat TTE showed preserved LVEF. Neurology consult for unresponsive episode with normal EEG. Patient became anxious on 04/18/2017 overnight with tachypnea, accessory muscle use, and agitation. The patient was given Lasix, started on BiPAP, given a duoneb, and transferred to the ICU. We were subsequently consulted. This morning, on arrival, the patient was still in respiratory distress. The patient was successfully endotracheally intubated with no complications. Past Med Surg Social Fam HX - Past Medical History Source: old records reviewed, nursing notes reviewed Medical history: aortic aneurysm, coronary artery disease, GERD, GI bleed, hypertension, myocardial infarction, peripheral artery disease, thyroid disease Psychiatric history: no psych history - Past Surgical History Surgical History: coronary bypass (CABG), LE Bypass - Social History Smoking Status: Current every day smoker Alcohol use: none Drug use: none - Family History Brother Name: GERDA Family Member Ethnicity: Non- Living Status: Age at : 35 Cause of : [place] Hx Family Cardiac Disorders: Yes Hx Family Respiratory Disorders: No Hx Family Cancer: Yes Hx Family GI Disorders: No Hx Family Genitourinary Disorders: No Hx Family Endocrine Disorder: Yes (MOTHER DM) Hx Family Musculoskeletal Disorders: No Hx Family Neuromuscular Disorders: No Hx Family Neurologic Disorders: No Hx Family HEENT Disorders: No Hx Family Autoimmune Disorders: No Hx Family Reproductive Disorders: No Hx Family Psychosocial Disorders: No Hx Family Medical Disorders: Yes Medications and Allergies Allopurinol [Zyloprim] 100 mg PO DAILY #0 01/16/15 [History] Aspirin Enteric Coated [Aspirin EC] 81 mg PO DAILY 01/16/15 [History] Fluticasone Propionate Nasal [Flonase] 2 spray NS DAILY 01/16/15 [History] Isosorbide MONOnitrate (24 HR) [Imdur] 60 mg PO DAILY #0 01/16/15 [History] clonazePAM [Klonopin] 0.5 mg PO HS #0 01/16/15 [History] Levothyroxine [Synthroid] 75 mcg PO 0630 #0 01/17/15 [History] Montelukast [Singulair] 10 mg PO DAILY 01/17/15 [History] Nitroglycerin 0.4 mg SL Q5M PRN #0 01/17/15 [History] Oxycodone HCl/Acetaminophen [Percocet 10-325 mg Tablet] 1 each PO Q6H PRN #0 [History] Pregabalin [Lyrica] 150 mg PO BID #0 01/17/15 [History] Atorvastatin [Lipitor] 40 mg PO HS 05/17/16 [History] Clopidogrel [Plavix] 75 mg PO DAILY 05/17/16 [History] Memantine HCl 10 mg PO BID 05/17/16 [History] Mirtazapine [Remeron] 30 mg PO HS 05/17/16 [History] Multivitamin [Multi-Day Vitamins] 1 each PO DAILY 05/17/16 [History] Pantoprazole Sodium [Protonix] 40 mg PO DAILY 05/17/16 [History] Trazodone HCl 100 - 200 mg PO HS 05/17/16 [History] Tizanidine HCl [Tizanidine HCl] 4 mg PO Q8H 04/15/17 [History] 3 Allergy/AdvReac Type Severity Reaction Status Date / Time acetaminophen AdvReac Itching Verified 04/15/17 09:56 [From Darvocet-N] enalaprilat [From Vasotec] AdvReac Weakness Verified 04/15/17 09:56 propoxyphene AdvReac Itching Verified 04/15/17 09:56 [From Darvocet-N] simvastatin [From Zocor] AdvReac Fainting Verified 04/15/17 09:56 ROS unobtainable: due to endotracheal tube All Systems: A 10-system review of systems was performed and is negative for pertinent findings except as documented above in the HPI. Physical Examination Vital Signs: Vital Signs, Last 4 Hours Temp Pulse Resp BP Pulse Ox 04/18/17 09:08 23 118/110 98 04/18/17 09:00 85 23 102/72 97 04/18/17 08:06 34 98 04/18/17 08:00 100 29 118/110 98 04/18/17 07:42 97.7 F 90 40 103/67 98 04/18/17 07:30 97.7 F 04/18/17 07:00 117 35 154/105 98 04/18/17 06:15 98 25 95/74 97 04/18/17 06:01 27 95/74 97 General appearance: comatose (sedated and intubated, but responds to commands. ) Eyes: nonicteric ENT: oropharynx moist Neck: supple Effort: very labored (prior to intubation. ) Auscultation: bilateral: wheezes, rales Cardiovascular: other (Tachycardic prior to intubation, HR 85 and regular afterwards. ) Gastrointestinal: normoactive bowel sounds, soft, non-tender, non-distended Integumentary: normal Extremities: no cyanosis, no edema unable to assess due to mental status Ventilator Settings Ventilator Settings: Ventilator Settings, Last 8 Hours Ventilator Mode A/C Ventilator Mode A/C Ventilator Mode A/C Ventilator Mode A/C Ventilator Mode A/C Ventilator Tidal Volume 500 Setting Ventilator Tidal Volume 500 Setting Ventilator Tidal Volume 500 Setting Ventilator Tidal Volume 500 Setting Ventilator Tidal Volume 500 Setting Ventilator Respiratory Rate 12 Setting Ventilator Respiratory Rate 12 Setting Ventilator Respiratory Rate 12 Setting Ventilator Respiratory Rate 12 Setting Ventilator Respiratory Rate 12 Setting Actual Respiratory Rate 23 Actual Respiratory Rate 23 Actual Respiratory Rate 34 Actual Respiratory Rate 29 Positive End Expiratory 5 Pressure Positive End Expiratory 5 Pressure Positive End Expiratory 5 Pressure Positive End Expiratory 5 Pressure Positive End Expiratory 5 Pressure Peak Inspiratory Airway 18 Pressure Peak Inspiratory Airway 15 Pressure Peak Inspiratory Airway 44 Pressure Peak Inspiratory Airway 41 Pressure Results - Laboratory Findings CBC and BMP: 04/18/17 04:55 04/18/17 04:55 ABG ABG pH 7.33 pH Units (7.32-7.45) 04/18/17 09:01 ABG pCO2 47 mmHg (35-45) H 04/18/17 09:01 ABG pO2 355 mmHg (85-104) H 04/18/17 09:01 ABG O2 Saturation 100 % (95-98) H 04/18/17 09:01 PT/INR, D-dimer PT 12.8 Seconds (9.4-12.1) H 04/14/17 19:53 Abnormal lab findings: Abnormal lab results WBC 13.1 K/mcL (4.3-11.1) H 04/18/17 04:55 RBC 3.94 M/mcL (4.19-5.50) L 04/18/17 04:55 Hgb 12.5 g/dL (12.9-16.9) L 04/18/17 04:55 Hct 36.8 % (37.5-50.1) L 04/18/17 04:55 Neutrophils # 11.9 K/mcL (1.6-8.9) H 04/18/17 04:55 Lymphocytes # 0.5 K/mcL (0.6-4.6) L 04/18/17 04:55 PT 12.8 Seconds (9.4-12.1) H 04/14/17 19:53 ABG pCO2 47 mmHg (35-45) H 04/18/17 09:01 ABG pO2 355 mmHg (85-104) H 04/18/17 09:01 ABG O2 Saturation 100 % (95-98) H 04/18/17 09:01 Creatinine 1.36 mg/dL (0.72-1.25) H 04/18/17 04:55 Est GFR (Non-Af Amer) 51 (> 60) L 04/18/17 04:55 Glucose 292 mg/dL (70-99) H 04/18/17 04:55 POC Glucose 288 (58-89) H 04/18/17 04:40 Calculated Osmolality 308 (280-300) H 04/18/17 04:55 Troponin I 12.69 ng/mL (0-0.03) H* 04/17/17 19:23 Triglycerides 154 mg/dL (< 150) H 04/15/17 02:28 VLDL Cholesterol, Calc 31 mg/dL (< 31) H 04/15/17 02:28 HDL Cholesterol 31 mg/dL (40-59) L 04/15/17 02:28 Vitamin B12 180 pg/mL (213-816) L 04/17/17 10:48 Prolactin 49.22 ng/mL (3.46-19.40) H 04/16/17 09:42 Ur Specific [place] > 1.030 (1.010-1.025) H 04/16/17 16:35 Urine Protein 100 mg/dL (Neg-Trace) H 04/16/17 16:35 Urine Glucose (UA) 250 mg/dL (Normal) H 04/16/17 16:35 Urine Blood Moderate (Negative) H 04/16/17 16:35 Urine Nitrite Positive (Negative) A 04/16/17 16:35 Urine Bilirubin Small (Negative) H 04/16/17 16:35 Urine Microscopic RBC 5-15 per hpf (0-3) H 04/16/17 16:35 Ur Squamous Epith Cells Moderate per lpf (None-Few) H 04/16/17 16:35 Ur Culture Indicated? YES (NO) A 04/16/17 16:35 - Microbiology Findings Microbiology Findings: Microbiology, Last 48 Hours 04/16/17 09:42 Blood Culture - Preliminary Peripheral Venipuncture No growth. 04/16/17 09:42 Blood Culture - Preliminary Peripheral Venipuncture No growth. 04/16/17 16:35 Urine Culture - Final Urine,Clean Catch No growth. - Clinical Findings Intake & Output: Intake & Output 04/17/17 04/18/17 04/18/17 23:59 07:59 15:59 Intake Total 120 / 120 50 / 50 Output Total 250 / 250 525 / 525 Balance -130 / -130 -475 / -475 Consult Discharge Plan - Plan Referrals: matt, Cardiology [Other] (Office will call patient at home with follow up appointment) Minh Pierce MD [Primary Care Provider] - 04/23/17 11:30 am <Blayne Chirinos - Last Filed: 04/18/17 13:02> Date of Encounter: 04/18/17 All Systems: A 10-system review of systems was performed and is negative for pertinent findings except as documented above in the HPI. Physical Examination Vital Signs: Vital Signs, Last 4 Hours Temp Pulse Resp BP Pulse Ox 04/18/17 12:00 81 21 81/62 99 04/18/17 11:39 97.7 F 04/18/17 11:11 19 99 04/18/17 11:00 80 20 82/63 99 04/18/17 10:00 82 21 84/63 98 04/18/17 09:08 23 118/110 98 04/18/17 09:00 85 23 102/72 97 Ventilator Settings Ventilator Settings: Ventilator Settings, Last 8 Hours Ventilator Mode A/C Ventilator Mode A/C Ventilator Mode A/C Ventilator Mode A/C Ventilator Mode A/C Ventilator Mode A/C Ventilator Mode A/C Ventilator Mode A/C Ventilator Mode A/C Ventilator Tidal Volume 500 Setting Ventilator Tidal Volume 500 Setting Ventilator Tidal Volume 500 Setting Ventilator Tidal Volume 500 Setting Ventilator Tidal Volume 500 Setting Ventilator Tidal Volume 500 Setting Ventilator Tidal Volume 500 Setting Ventilator Tidal Volume 500 Setting Ventilator Tidal Volume 500 Setting Ventilator Respiratory Rate 12 Setting Ventilator Respiratory Rate 12 Setting Ventilator Respiratory Rate 12 Setting Ventilator Respiratory Rate 12 Setting Ventilator Respiratory Rate 12 Setting Ventilator Respiratory Rate 12 Setting Ventilator Respiratory Rate 12 Setting Ventilator Respiratory Rate 12 Setting Ventilator Respiratory Rate 12 Setting Actual Respiratory Rate 21 Actual Respiratory Rate 21 Actual Respiratory Rate 20 Actual Respiratory Rate 21 Actual Respiratory Rate 23 Actual Respiratory Rate 23 Actual Respiratory Rate 34 Actual Respiratory Rate 29 Positive End Expiratory 5 Pressure Positive End Expiratory 5 Pressure Positive End Expiratory 5 Pressure Positive End Expiratory 5 Pressure Positive End Expiratory 5 Pressure Positive End Expiratory 5 Pressure Positive End Expiratory 5 Pressure Positive End Expiratory 5 Pressure Positive End Expiratory 5 Pressure Peak Inspiratory Airway 17 Pressure Peak Inspiratory Airway 15 Pressure Peak Inspiratory Airway 16 Pressure Peak Inspiratory Airway 18 Pressure Peak Inspiratory Airway 18 Pressure Peak Inspiratory Airway 15 Pressure Peak Inspiratory Airway 44 Pressure Peak Inspiratory Airway 41 Pressure Results - Laboratory Findings CBC and BMP: 04/18/17 04:55 04/18/17 04:55 ABG ABG pH 7.33 pH Units (7.32-7.45) 04/18/17 09:01 ABG pCO2 47 mmHg (35-45) H 04/18/17 09:01 ABG pO2 355 mmHg (85-104) H 04/18/17 09:01 ABG O2 Saturation 100 % (95-98) H 04/18/17 09:01 PT/INR, D-dimer PT 12.8 Seconds (9.4-12.1) H 04/14/17 19:53 Abnormal lab findings: Abnormal lab results WBC 13.1 K/mcL (4.3-11.1) H 04/18/17 04:55 RBC 3.94 M/mcL (4.19-5.50) L 04/18/17 04:55 Hgb 12.5 g/dL (12.9-16.9) L 04/18/17 04:55 Hct 36.8 % (37.5-50.1) L 04/18/17 04:55 Neutrophils # 11.9 K/mcL (1.6-8.9) H 04/18/17 04:55 Lymphocytes # 0.5 K/mcL (0.6-4.6) L 04/18/17 04:55 PT 12.8 Seconds (9.4-12.1) H 04/14/17 19:53 ABG pCO2 47 mmHg (35-45) H 04/18/17 09:01 ABG pO2 355 mmHg (85-104) H 04/18/17 09:01 ABG O2 Saturation 100 % (95-98) H 04/18/17 09:01 Creatinine 1.36 mg/dL (0.72-1.25) H 04/18/17 04:55 Est GFR (Non-Af Amer) 51 (> 60) L 04/18/17 04:55 Glucose 292 mg/dL (70-99) H 04/18/17 04:55 POC Glucose 256 (58-89) H 04/18/17 11:41 Calculated Osmolality 308 (280-300) H 04/18/17 04:55 Troponin I 24.39 ng/mL (0-0.03) H* 04/18/17 09:42 Triglycerides 154 mg/dL (< 150) H 04/15/17 02:28 VLDL Cholesterol, Calc 31 mg/dL (< 31) H 04/15/17 02:28 HDL Cholesterol 31 mg/dL (40-59) L 04/15/17 02:28 Vitamin B12 180 pg/mL (213-816) L 04/17/17 10:48 Prolactin 49.22 ng/mL (3.46-19.40) H 04/16/17 09:42 Ur Specific [place] > 1.030 (1.010-1.025) H 04/16/17 16:35 Urine Protein 100 mg/dL (Neg-Trace) H 04/16/17 16:35 Urine Glucose (UA) 250 mg/dL (Normal) H 04/16/17 16:35 Urine Blood Moderate (Negative) H 04/16/17 16:35 Urine Nitrite Positive (Negative) A 04/16/17 16:35 Urine Bilirubin Small (Negative) H 04/16/17 16:35 Urine Microscopic RBC 5-15 per hpf (0-3) H 04/16/17 16:35 Ur Squamous Epith Cells Moderate per lpf (None-Few) H 04/16/17 16:35 Ur Culture Indicated? YES (NO) A 04/16/17 16:35 - Microbiology Findings Microbiology Findings: Microbiology, Last 48 Hours 04/16/17 09:42 Blood Culture - Preliminary Peripheral Venipuncture No growth. 04/16/17 09:42 Blood Culture - Preliminary Peripheral Venipuncture No growth. 04/16/17 16:35 Urine Culture - Final Urine,Clean Catch No growth. - Clinical Findings Intake & Output: Intake & Output 04/17/17 04/18/17 04/18/17 23:59 07:59 15:59 Intake Total 120 / 120 50 / 50 Output Total 250 / 250 525 / 525 0 / 0 Balance -130 / -130 -475 / -475 - Attending Attestation I examined this patient and my medical decision-making was reviewed with the Resident Physician. I agree with the documented findings, disposition and treatment plan as described except to the extent set forth below. Patient seen and examined. Labs, radiology, chart personally reviewed. Agree with resident's history and physical, assessment, plan with following comments: [place]: Patient is agitated before intubation, Pulmonary: Acceptable oxygenation and ventilation. When I arrived to ICU this morning I found patient in acute respiratory distress with using accessory muscles and bilateral crackles suggestive of pulmonary edema which is most likely cardiac in origin after patient had treatment for his C. difficile colitis with fluid possibly and due to his significant agitation and hemodynamic instability with tachycardia and decided patient to be on mechanical invasive ventilation because he was not tolerating noninvasive ventilation. She was placed on appropriate vent setting can follow-up ABG was reasonable Cardiovascular: He should not with significant cardiac history and follow-up troponin is increased. To check with cardiology team and also family if intervention needs to be done whether it will be in [place] or outside hospital if can't be done at [place]. GI: Nutrition per dietary and GI prophylaxis per routine Heme: DVT prophylaxis per routine ID: Continue antibiotics and plan to de-escalation Renal; urine out put and renal funtion reviewed Endorcine: blood glucose is monitored Lines: all lines checked and no evidence of infections Skin: skin care to prevent pressure ulcers per nursing routine care I spent 45 min of Critical Care time with this patient. It involved decision making of high complexity to assess, manipulate, and support vital organ system failure and/or to prevent further life threatening deterioration of the patient' s condition. The time involved in the performance of separately reportable procedures was not counted toward critical care time.
[2017-04-18] MEDS ORDERED: D5% in Water 1,000 ML IVC PRN (10:19)
[2017-04-18] MEDS ORDERED: *HR* Dextrose 50 % in Water (Syg) 50 ML SYRINGE IVP PRN (10:19)
[2017-04-18] MEDS ORDERED: Dextrose Gel 15 GM PO PRN ×2 (10:19)
--- NOTE | 2017-04-18 10:39 | Cardiology Progress Note ---
Date of Encounter: 04/18/17 Time of Encounter: 10:35 Assessment and Plan (1) Coronary artery disease Current Visit: Yes Status: Chronic [place] CAD, prior CABG. NSTEMI s/p C 04/14/2017 - PCI to [place] CX. Per TTE, LVEF normal. Respiratory distress, ischemic appearing ECG changes when tachycardic. Now with pulmonary edema and increasing troponin. Recommend continue aspirin/Plavix - ideally, for one year without interruption. Continue BB/Imdur as tolerated. Statin allergy listed. Troponin now trending up. Given change in condition and upward trending troponin, recommend a repeat diagnostic [facility]. Case discussed with inteventional pressing department supervisor, who agrees. I will call listed contact to discuss. Qualifiers: Coronary Disease-Associated Artery/Lesion type: bypass graft [place] vs. transplanted heart: [place] heart Associated angina: with unstable angina Qualified Code(s): I25.700 - Atherosclerosis of coronary artery bypass graft(s) , unspecified, with unstable angina pectoris (2) Non-ST elevation [place] (NSTEMI) Current Visit: Yes Status: Acute Per cardiology: -S/p LHC yesterday with 100% LAD stenosis, WRIGHT to LAD patent, 80% proximal circumflex stenosis with RANDEE placed, 100% Proximal RCA, SVG to OM occluded, SVG to circumflex occluded, SVG to RCA occluded. -On asa, statin, beta corrie, imdur, and plavix. Educated on importance of dual anti-platelet therapy uninterrupted for at least one year. -TTE with LVEF 60%, mild diastolic dysufnction, all wall segments with normal motion. -ECG yesterday with no acute ischemic changes. -Patient with episode this morning of decreased responsiveness. Leukocytosis noted, stool positive for C.Diff. CT with no acute intracranial abnormalities. Hemoglobin stable. -Will repeat limited TTE to rule out cardiac cause of decreased responsiveness. -Will continue to monitor. Discussion w patient/family: The assessment and plan as outlined above was discussed with the patient and/or family members who expressed understanding and agreement. All questions were answered. Thank you for involving us in the care of your patient. Please call with any questions. Subjective Principal diagnosis: NSTEMI Interval history: Per reports, patient decompensated overnight. Patient developed respiratory distress requiring intubation. CT yesterday - trace effusions. CXR later in evening - pulmonary edema. ECG yesterday, ST depression noted when tachycardic. ST changes back to baseline this morning with lower HR. Currently intubated, appears comfortable. Troponin now 24.39 (previous 12.69, down from 48.79). Objective Vital Signs, Last 4 Hours Temp Pulse Resp BP Pulse Ox 04/18/17 09:08 23 118/110 98 04/18/17 09:00 85 23 102/72 97 04/18/17 08:06 34 98 04/18/17 08:00 100 29 118/110 98 04/18/17 07:42 97.7 F 90 40 103/67 98 04/18/17 07:30 97.7 F 04/18/17 07:00 117 35 154/105 98 General: Other (Sedated in ICU. ) Cardiac: Other (Distant, but appears regular. No obvious murmurs. ) Lungs: Other (Shallow on ventilator. ) Neuro: Other (Sedated on ventilator. ) Skin: No rashes noted on visualized skin Musculoskeletal: No Chest Wall Tenderness Extremities: No Clubbing, No Cyanosis, No Edema Results 04/18/17 04:55 04/18/17 04:55 Lab Results 04/17/17 04/17/17 04/18/17 06:26 19:23 04:55 WBC 13.1 H Hgb 12.5 L Hct 36.8 L Plt Count 188 Sodium 142 Potassium 3.4 L Chloride 106 Carbon Dioxide 27 BUN 18 Creatinine 1.08 Glucose 131 H Calcium 8.6 Magnesium 1.5 L Troponin I 12.69 H* TSH 0.818 04/18/17 04/18/17 04:55 09:42 WBC Hgb Hct Plt Count Sodium 142 Potassium 4.5 D Chloride 106 Carbon Dioxide 24 BUN 23 Creatinine 1.36 H Glucose 292 H Calcium 8.7 Magnesium 1.8 Troponin I 24.39 H* TSH - Imaging and Cardiology Chest Xray: report reviewed Echo: report reviewed Cardiac cath: report reviewed - EKG Interpretation EKG results cardiology: personally reviewed - VTE Documentation of Mechanical Device: Graduated compression elastic hosiery Consult Discharge Plan - Plan Referrals: matt, Cardiology [Other] (Office will call patient at home with follow up appointment) Minh Pierce MD [Primary Care Provider] - 04/23/17 11:30 am
[2017-04-18] MEDS ORDERED: Heparin 25,000 UNIT/500 ML D5W 25,000 UNIT/500 ML BAG IVC SCH (11:00)
--- NOTE | 2017-04-18 11:23 | Event Note ---
Date of Encounter: 04/18/17 Time of Encounter: 11:22 Spoke with female partner of 14 years, Marnie. She states she is durable, healthcare power of tankroom tender for Mr. Rosario. We discussed the r/b/a to a [facility] given his change in condition, ECG changes, and increasing troponin. She is agreeable and requests that we proceed.
--- NOTE | 2017-04-18 12:10 | Pre-Sedation Evaluation ---
Pre-sedation evaluation - Pre-sedation checklist Date of procedure: 04/17/17 Procedure: [facility] Recent Vitals: Last Vital Signs Temp 97.7 F 04/18/17 11:39 Pulse 81 04/18/17 12:00 Resp 21 04/18/17 12:00 BP 81/62 04/18/17 12:00 Pulse Ox 99 04/18/17 12:00 H&P (including ROS) documented in medical record: Yes Previous reaction to sedatives/anesthetics: No Dietary Status: NPO after Midnight Dentition: dentures removed Plan of Care: Pt appropriate candidate for procedure/moderate/conscious sedation (Patient intubated in the ICU. Consent obtained form POA by Dr. Valerio for [facility] due to Elevated troponins and Pulmonary edema)
[2017-04-18] MEDS ORDERED: *HR* Heparin 10,000 UNIT/10 ML VIAL ONE (12:23)
[2017-04-18] MEDS ORDERED: 0.9 % Sodium Chloride 1,000 ML ONE ×2 (12:23→12:48)
[2017-04-18] MEDS: Insulin LISPRO 300 UNITS/3 ML VIAL SQ SCH ×3 (12:25→23:54)
[2017-04-18] MEDS ORDERED: Nitroglycerin 1,000 MCG/10 ML VIAL IV ONE (12:29)
[2017-04-18] MEDS ORDERED: Tirofiban 5 MG/100ML 5 MG/100 ML BAG IV ONE (13:44)
--- NOTE | 2017-04-18 14:35 | Invasive Diagnostic Lab Proc ---
Name: Juan Diego Rosario Date of Study: 04/18/2017 Date: 1945 Ht: 71.7in Medical Record#: [id number] Age: 72 Wt: 189.60lb Gender: Male BSA: 2.08 Order #: [id number] BMI: 25.96 Physicians Procedure Physician: Julito Conner MD Referring MD: Brendan Valerio DO,FACCarrington,KEVYN VELASQUEZ Referring MD: Staff Name Position Time In Ivet Arboleda RT (R) Monitor 12:52 PM Kyung Hernandez RN Java Solutions Architect 12:52 PM Codie Cabrales RT (R) Scrub 12:52 PM Indications Indication Non-Stemi Procedures Performed Procedure CORONARY ART/GRFT ANGIO S&I PRQ CARD RANDEE STENT W/ANGIO 1 VSL Pre-Procedure Checklist Informed consent is complete signed and on chart. H&P is on chart. ID band is on and ID verified with patient. Patient NPO for procedure The procedure was described for the patient and questions were answered. Blood Pressure: 131/65 ECG is on chart. Plan of Care Patient will tolerate the procedure without complications. Adequate level of comfort will be maintained. Hemodynamics will remain stable Patient will recover from procedure without complications. Respiratory function will be maintained. Cardiac rhythm will remain stable. Patient temperature will be maintained. Patient Education Chief Complaint/Reason for Test: Cardiac Cath Developmental Category: Geriatric (65+ years) Developmentally Appropriate for Age: Yes Learning Barriers: None Education Needs: Procedure Education Method: Verbal Information Taught: Cardiac Cath Educational Evaluation: Able to repeat information Intravenous Access Time IV Size Location DC'd Fluid/Drip Rate Units RN 12:52 PM 20g 1 1/4" Patent On Arrival Lt Antecubital 0.9NaCl 25 ml/hr Kyung Hernandez RN 12:52 PM 20g 1 1/4" Patent On Arrival Lt Arm Allergies simvastatin propoxyphene Darvocet Vital Signs Time BP (mmHg) HR (bpm) O2 Sat. RR (bpm) LOC 12:55 PM 82 / 63 80 99 % 16 12:55 PM / % 2 = Responds to voice 12:55 PM / % 4 = Oriented but drowsy 01:10 PM / % 1 = Reflexes present/moves spontaneously 01:25 PM / % 4 = Oriented but drowsy 12:49 PM 131 / 65 40 99 % 4 01:09 PM 91 / 66 86 99 % 23 01:26 PM 90 / 62 80 99 % 21 01:27 PM 92 / 63 83 99 % 23 01:29 PM 91 / 64 85 99 % 23 02:07 PM 116 / 78 103 94 % 19 Procedural Medications Time Medication Dose Units Method Given By 12:52 PM Oxygen L/min mechanical ventilator Respiratory 12:54 PM Precedex 8.5 ml/hr Intravenous 12:54 PM fentanyl 25 mcg/hr Intravenous 01:12 PM Lidocaine 2% 10 ml Subcutaneous Julito Conner MD 01:33 PM Heparin 1000 units Intravenous Kyung Hernandez RN 01:45 PM Heparin 4000 units Intravenous Kyung Hernandez RN 01:45 PM Aggrastat 5mg/100ml 42 ml Intravenous Kyung Hernandez RN 01:47 PM 0.9NaCl 100 01:47 PM Aggrastat 12.5mg/250ml 7.5 ml/hr Intravenous Kyung Hernandez RN 01:55 PM Dopamine 7.5 mcg/kg/min Intravenous Kyung Hernandez RN 01:55 PM Nitroglycerin 100 mcg Intracoronary Lenny Conner MD 01:56 PM Nitroglycerin 100 mcg Intracoronary Lenny Conner MD 02:08 PM Dopamine 5 mcg/kg/min Intravenous Kyung Hernandez RN ASA Classification: Emergent Procedure: ASA score is assumed Ciaran Score Preprocedure Postprocedure Activity 1- Moves 2 extremities sustained head lift Activity 1- Moves 2 extremities sustained head lift Circulation 2- SBP +/= 20 points of pre-anesthetic level Circulation 2- SBP +/= 20 points of pre-anesthetic level Consciousness 1- Responds to verbal stimuli drowsy Consciousness 1- Responds to verbal stimuli drowsy O2 Saturation 2- Able to maintain O2 satruation of 92% on room air O2 Saturation 2- Able to maintain O2 satruation of 92% on room air Respiratory 2- Able to deep breathe and cough well Respiratory 2- Able to deep breathe and cough well Total Score 8 Total Score 8 Contrast Agent: Isovue Diagnostic Contrast: 281 ml Total Contrast: 281 ml Fluoro Dose: 1299 mGy Activated Clotting Time Time Seconds to Clot 01:39 PM 137 01:44 PM 170 02:10 PM 281 Procedure Log Time Note Enter By 12:47 PM CathStat 12:47 PM Vitals capture started with the following parameters, Patient=Adult, Interval=5 min, Initial Vwugwyla=312 mmHg, Deflation Rate=5 mmHg, Cuff placed on Left Arm 12:47 PM Case Start 12:49 PM HR=40 bpm, WQCV=573/65 mmhg, SpO2=99.0 %, Resp=4 B/min 12:52 PM Pt arrived to oven laborer 1 at 12:52 [email or web address] 12:52 PM Ivet Arboleda RT (R) Position: Monitor Time in: 12:52 [email or web address] 12:52 PM Kyung Hernandez RN Position: Java Solutions Architect Time in: 12:52 [email or web address] 12:52 PM Codie Cabrales RT (R) Position: Scrub Time in: 12:52 [email or web address] 12:52 PM Patient charges- Angio tray pack, Navilyst 3mm J, Pulse Oximetry and ACIST tubing and transducer [email or web address] 12:52 PM Case Delayed No [email or web address] 12:52 PM Physican paged/called 12:52. [email or web address] 12:53 PM Time: 12:52 Oxygen on at L/min per mechanical ventilator by Respiratory [email or web address] 12:54 PM Patient arrived at 12:54 with Precedex Intravenous drip @ 8.5 ml/hr [email or web address] 12:54 PM Vitals capture stopped. 12:55 PM Patient arrived at 12:54 with fentanyl Intravenous drip @ 25 mcg/hr [email or web address] 12:55 PM Physician arrived 12:55 [email or web address] 12:55 PM Sign in performed according to hospital policy. [email or web address] 12:55 PM Time: 12:55 Patient comfortable and pain free: Yes [email or web address] 12:55 PM Time: 12:55LOC: 2 = Responds to voice [email or web address] 12:57 PM Reference ECG taken 12:57 PM Recorded ECG: HR=92 Condition=Condition 1 01:03 PM NIBP STAT measurement started. 01:05 PM Pressure channel 1 zeroed. 01:05 PM Vitals capture stopped. 01:05 PM NIBP STAT measurement started. 01:07 PM Vitals capture stopped. 01:09 PM NIBP STAT measurement started. 01:09 PM HR=86 bpm, NIBP=91/66 mmhg, SpO2=99.0 %, Resp=23 B/min 01:10 PM Time: 12:55LOC: 4 = Oriented but drowsy [email or web address] 01:10 PM Time: 12:55 Patient comfortable and pain free: Yes [email or web address] 01:12 PM Time out performed according to hospital policy [email or web address] 01:13 PM Time: 13:12 10 ml Lidocaine 2% to right groin Subcutaneous Given by Julito Conner MD [email or web address] 01:14 PM Micro-Introducer Kit utilized for sheath placement [email or web address] 01:15 PM Access obtained by percutaneous puncture. 6Fr 10cm Terumo Arrington sheath placed in right Femoral artery. [id number] [email or web address] 01:15 PM Bolus angio Rt femoral 3 mls contrast [email or web address] 01:16 PM 5Fr FL 4 catheter inserted over the wire [facility] [email or web address] 01:16 PM 0.035 145cm Navilyst 3mmJ wire [id number] [email or web address] 01:17 PM LCA angiography performed in multiple views. [email or web address] 01:18 PM Recorded Pressure: Ao, FE=830, Condition=Condition 1 (Aorta) Ao 65/55/59 01:18 PM Recorded Pressure: Ao, HR=78, Condition=Condition 1 (Aorta) Ao 59/47/53 01:19 PM Catheter removed [email or web address] 01:19 PM 5Fr FR 4 catheter inserted over the wire [facility] [email or web address] 01:22 PM 0.035 260cm Navilyst 3mmJ wire [id number] [email or web address] 01:22 PM Catheter removed [email or web address] 01:22 PM 5Fr IM catheter inserted over the wire [id number] [email or web address] 01:24 PM Left WILMER to the LAD angio performed in multiple views. [email or web address] 01:25 PM Time: 13:10 Patient comfortable and pain free: Yes [email or web address] 01:25 PM Time: 13:10LOC: 1 = Reflexes present/moves spontaneously [email or web address] 01:26 PM NIBP STAT measurement started. 01:26 PM HR=80 bpm, NIBP=90/62 mmhg, SpO2=99.0 %, Resp=21 B/min 01:27 PM NIBP STAT measurement started. 01:27 PM HR=83 bpm, NIBP=92/63 mmhg, SpO2=99.0 %, Resp=23 B/min 01:28 PM NIBP STAT measurement started. 01:29 PM HR=85 bpm, NIBP=91/64 mmhg, SpO2=99.0 %, Resp=23 B/min 01:29 PM Recorded Pressure: Ao, [place]=550, Condition=Condition 1 (Aorta) Ao 63/54/58 01:31 PM Left WILMER to the angio performed in multiple views. [email or web address] 01:31 PM Recorded Pressure: Ao, HR=83, Condition=Condition 1 (Aorta) Ao 62/51/57 01:32 PM Lesion found in Proximal LAD. Pre Stenosis: 100 Pre JEWEL Flow: [email or web address] 01:33 PM Time: 13:33 Heparin 1000 units Intravenous Given by Kyung Hernandez RN [email or web address] 01:33 PM Catheter removed [email or web address] 01:37 PM Sheath exchanged for a 6 Fr 11 cm Cordis Joy sheath [id number] [email or web address] 01:39 PM At 13:39 the ACT was 137 seconds. [email or web address] 01:40 PM 6Fr XB 3.5 [place] Bright-Tip guide catheter was used to cannulate the PCI vessel successfully. reused? No [email or web address] 01:40 PM Inflation device was opened. [email or web address] 01:41 PM Time: 13:25LOC: 4 = Oriented but drowsy [email or web address] 01:41 PM Time: 13:25 Patient comfortable and pain free: Yes [email or web address] 01:41 PM .014 [place] 180cm guide wire across target lesion- successful. reused? No [email or web address] 01:45 PM At 13:44 the ACT was 170 seconds. [email or web address] 01:45 PM Time: 13:45 Heparin 4000 units Intravenous Given by Jose Mcnair RN [email or web address] 01:46 PM Time: 13:45 Aggrastat 5mg/100ml 42 ml Intravenous Given by Kyung Hernandez RN Matias pump [email or web address] 01:46 PM Recorded Pressure: Ao, HR=81, Condition=Condition 1 (Aorta) Ao 68/54/61 01:47 PM Time: 13:47 0.9NaCl 100cc bolus ml/hr Intravenous Given by Kyung Hernandez RN [email or web address] 01:48 PM Time: 13:47 Aggrastat 12.5mg/250ml 7.5 ml/hr Intravenous Given by Kyung Hernandez RN Matias pump [email or web address] 01:49 PM Inflation device was opened. [email or web address] 01:49 PM 2.5mm x 8mm Synergy drug-eluting stent across target lesion- successful Lot #[id number] [email or web address] 01:51 PM Recorded Pressure: Ao, HR=81, Condition=Condition 1 (Aorta) Ao 59/49/53 01:53 PM Stent deployed @ 14 edgardo for 14 seconds [email or web address] 01:53 PM Stent delivery system removed intact. [email or web address] 01:55 PM Time: 13:55 Dopamine 7.5 mcg/kg/min Intravenous Given by Kyung Hernandez RN Matias pump [email or web address] 01:55 PM Time: 13:55 Nitroglycerin 100 mcg Intracoronary Given by Lenny Conner MD [email or web address] 01:56 PM Time: 13:41 Patient comfortable and pain free: Yes [email or web address] 01:56 PM Time: 13:56 Nitroglycerin 100 mcg Intracoronary Given by Lenny Conner MD [email or web address] 02:00 PM Guide wire removed intact. [email or web address] 02:00 PM Guide catheter removed intact. [email or web address] 02:02 PM Procedure completed at 14:02 [email or web address] 02:02 PM Sign out completed: Radiation Dose 1298.68 mGy Fluoro Time: 14.8 Isovue 370 - 241ml contrast ml given by Julito Conner MD. Complications: NoneCardiac Rehab Consult needed: YesConfirmed administered medications: Yes [email or web address] 02:02 PM Isovue 370 - 200ml,1 Bottle(s) used. [email or web address] 02:03 PM Sheath left in place to be pulled on floor/holding areaV+Pad [email or web address] 02:03 PM Estimated Blood Loss: minimal [email or web address] 02:03 PM Post Blood Pressure 91/64 [email or web address] 02:03 PM Information taught Cardiac Cath and PCI [email or web address] 02:03 PM Education needs Procedure, Plan of Care, and Disease Process [email or web address] 02:03 PM Learning barriers :None [email or web address] 02:03 PM Education Methods Verbal [email or web address] 02:03 PM Education evaluation Able to repeat information [email or web address] 02:04 PM Site status No bleeding/hematoma - Rt Groin as reported by Codie Cabrales RT (R) at 14:03 [email or web address] 02:04 PM Opsite applied [email or web address] 02:04 PM Delay to floor No [email or web address] 02:04 PM Family placed in not available. [email or web address] 02:04 PM Complications: None [email or web address] 02:04 PM Fluoro Time: 14.8 [email or web address] 02:04 PM Isovue 370 - 200ml contrast 241 ml given by Julito Conner MD. [email or web address] 02:06 PM NIBP STAT measurement started. 02:07 PM FE=646 bpm, MFFS=113/78 mmhg, SpO2=94.0 %, Resp=19 B/min 02:08 PM Time: 14:08 Dopamine 5 mcg/kg/min Intravenous Given by Kyung Hernandez RN Matias pump [email or web address] 02:11 PM Time: 13:56 Patient comfortable and pain free: Yes [email or web address] 02:15 PM Report given to Carmen LEYVA Pt taken to ICU Room #7. 14:15 [email or web address] 02:15 PM Fluoro Time: 14.8 [email or web address] 02:15 PM Radiation Dose 1298.68 mGy [email or web address] 02:15 PM Isovue 370 - 200ml contrast 281 ml given by Julito Conner MD. [email or web address] 02:27 PM Patient out of room: 14:20 [email or web address] Complications Complication None None Hemodynamics Pressures Site Systolic/A Wave Diastolic/V Wave Mean AO 65 55 59 AO 59 47 53 AO 63 54 58 AO 62 51 57 AO 68 54 61 AO 59 49 53 Post Procedure Information Blood Pressure: 91/64 mmHg Post procedural instructions were given Site Checks Time Location Status Staff Sheath In? Note 02:03 PM Rt Groin No bleeding/hematoma Codie Cabrales RT (R) Pulses Time Site Pre-Procedure Post-Procedure Note Bilateral DP 2+ 2+ Bilateral PT 1+ 1+ Updated by Ivet Arboleda RT(R) on 04/18/2017 2:29:34 PM electronically signed on 04/18/2017 2:30:09 PM with status of Final
--- NOTE | 2017-04-18 15:42 | Electrocardiograph Report ---
[address] [address] Test Date: 2017-04-18 Pat Name: Juan Diego Rosario Department: 110 Room: [facility] Gender: M Money Manager: SANDRA : 1945 Requested By: Sekou Thorne Order Number: [id number] Reading MD: Loraine Brewer Measurements Intervals [place] Rate: 0 P: AR: 0 QRS: 0 QRSD: 0 T: 0 QT: 0 QTc: 0 Interpretive Statements SINUS TACHYCARDIA LOW QRS VOLTAGE ARTIFACT LIMITS INTERPRETATION Electronically Signed On 04-18-2017 15:41:17 EST by Loraine Brewer
--- NOTE | 2017-04-18 15:42 | Electrocardiograph Report ---
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
--- NOTE | 2017-04-18 15:48 | Electrocardiograph Report ---
[address] [address] Test Date: 2017-04-18 Pat Name: Juan Diego Rosario Department: 109 Room: [facility] Gender: M Residential Door Installer: KEVIN : 1945 Requested By: Norma Nash Order Number: [id number] Reading MD: Loraine Brewer Measurements Intervals [place] Rate: 100 P: 72 AK: 169 QRS: -40 QRSD: 109 T: 87 QT: 368 QTc: 425 Interpretive Statements SINUS TACHYCARDIA WITH OCCASIONAL SUPRAVENTRICULAR PREMATURE COMPLEXES POSSIBLE LEFT ATRIAL ENLARGEMENT LEFT AXIS DEVIATION LOW QRS VOLTAGE IN EXTREMITY LEADS Electronically Signed On 04-18-2017 15:46:43 EST by Loraine Brewer
--- NOTE | 2017-04-18 16:05 | Electrocardiograph Report ---
[address] [place], [place] [address] Test Date: 2017-04-17 Pat Name: Juan Diego Rosario Department: 110 Room: 07 Gender: M Data Communications Software Consultant: : 1945 Requested By: Cj Ewing Order Number: [id number] Reading MD: Loraine Brewer Measurements Intervals [place] Rate: 105 P: 79 CT: 167 QRS: -79 QRSD: 97 T: 73 QT: 342 QTc: 403 Interpretive Statements SINUS TACHYCARDIA WITH SUPRAVENTRICULAR PREMATURE COMPLEXES LOW QRS VOLTAGE IN EXTREMITY LEADS LEFT ANTERIOR FASCICULAR BLOCK ST DEPRESSION, CONSIDER SUBENDOCARDIAL INJURY Electronically Signed On 04-18-2017 16:04:13 EST by Loraine Brewer
[2017-04-18] MEDS: Ipratropium/Albuterol Neb 3 ML IH PRN (16:13)
[2017-04-18 16:50] LABS: Bilirubin,Urine Negative (Negative); Blood,Urine Large (Negative); Clarity,Urine Clear (Clear); Color,Urine Yellow (Yellow); Glucose,Urine (UA) Normal (Normal); Ketones,Urine Negative (Negative); Leukocyte Esterase,Urine Negative (Negative); Nitrite,Urine Negative (Negative); Protein,Urine Trace mg/dL (Neg-Trace); Urobilinogen,Urine Normal (Normal)
[2017-04-18 16:53] LABS: Specific Gravity,Urine >= 1.099 (1.010-1.025)
[2017-04-18 17:08] LABS: Squamous Epithelial Cell,Urine Few per lpf (None-Few)
[2017-04-18 17:10] LABS: Bacteria,Urine Few per hpf (None-Few); Hyaline Casts,Urine None Seen per lpf (None-Few)
[2017-04-18] MEDS: Mirtazapine 15 MG TABLET PO SCH (20:39)
[2017-04-18] MEDS: clonazePAM 0.5 MG TABLET PO SCH (20:39)
[2017-04-18] MEDS: traZODone 50 MG TABLET PO SCH (20:40)
--- NOTE | 2017-04-18 21:09 | EEG/EMG/Oth Biometrics Report ---
EEG Procedure Report Date of procedure: 04/18/17 EEG Procedure: Routine EEG Procedure Note: Pt with mental status changes and respiratory failure Technical Description : This EEG was acquired with standard international 10-20 electrode placement system with EKG recording. The Background activity during this EEG was replaced by diffuse background slowing in the range of delta and theta activity with predominant delta activity very low in amplitude, The background activity was minimally active. Later during the recording, EEG tracing gradually evolved into slightly higher amplitude delta activity. no Epileptiform discharges were recorded Photic stimulation produced no abnormalities. HV not performed during this study. Impression: This is an abnormal EEG due to presence of diffuse background slowing. Clinical Correlation: This EEG is consistent with diffuse cerebral dysfunction that can be seen in patients with encephalopathy, anoxic brain injury, toxic/metabolic/ infectious etiologies or it can occur as an inctal phenomenon in appropriate clinical settings. It can also be the result of sedatives. Clinical correlation is suggested.
[2017-04-19] MEDS: Ipratropium/Albuterol Neb 3 ML IH PRN (00:01)
[2017-04-19] MEDS: Levalbuterol Neb 1.25 MG/3 ML IH SCH ×5 (00:02→22:06)
[2017-04-19] MEDS: Dexmedetomidine HCl 400 MCG/100 ML MLS IVC SCH ×4 (02:43→22:20)
[2017-04-19 03:33] LABS: Basophils % 0.1 %; Hematocrit 35.2 % (37.5-50.1); Hemoglobin 11.9 g/dL (12.9-16.9); Immature Granulocytes % 0.5 % (0-4); Lymphocytes # 0.8 K/mcL (0.6-4.6); Lymphocytes % 6.4 %; Mean Corpuscular HGB Conc 33.8 g/dL (31.6-35.5); Mean Corpuscular Hemoglobin 32.2 pg (28.0-33.3); Mean Corpuscular Volume 95.1 fL (83.0-100.0); Mean Platelet Volume 10.6 fL (9.4-12.4); Monocytes # 0.8 K/mcL (0.0-1.3); Monocytes % 5.9 %; Neutrophils # 11.3 K/mcL (1.6-8.9); Platelet Count 169 K/mcL (140-400); Red Cell Distribution Width 13.7 % (11.5-14.5); Segmented Neutrophils % 87.1 %
[2017-04-19] MEDS: metroNIDAZOLE 500 MG TABLET PO SCH ×3 (03:55→20:24)
[2017-04-19 03:59] LABS: ABG Base Excess 0 mEq/L (-2 to 3); ABG HCO3 24 mEq/L (21-27); ABG Oxygen Saturation 97 % (95-98); ABG PCO2 37 mmHg (35-45); ABG PH 7.42 pH Units (7.32-7.45); ABG PO2 89 mmHg (85-104); ABG TCO2 25 mEq/L (20-26); Blood Gas Modality ASSIST CONTROL; Blood Gas PEEP 5 cm H2O; Blood Gas Respiration Rate 12; Blood Gas VT 500 cc
[2017-04-19] MEDS: Lacri-Lube 3.5 GM TUBE BOTH EYES SCH ×5 (04:01→20:25)
[2017-04-19 04:24] LABS: Calcium 9.2 mg/dL (8.6-10.8); Potassium 4.9 mEq/L (3.5-4.5)
[2017-04-19] MEDS: Nitroglycerin 1 INCH/GM PACKET TP SCH ×2 (05:36→14:00)
[2017-04-19] MEDS: Furosemide 40 MG/4 ML VIAL IVP SCH ×2 (05:39→17:54)
[2017-04-19] MEDS: Insulin LISPRO 300 UNITS/3 ML VIAL SQ SCH ×3 (05:49→17:54)
[2017-04-19] MEDS: *HR* Acetylcysteine 20% 600 MG/3 ML ORAL SYRINGE PO SCH ×2 (06:26→18:08)
[2017-04-19] MEDS ORDERED: Heparin 1,000 UNIT, 0.9 % Sodium Chloride 500 ML INARTERIAL ONE (08:00)
[2017-04-19] MEDS ORDERED: *HR* Etomidate 20 MG/10 ML AMPUL IVP ONE (08:04)
[2017-04-19] MEDS ORDERED: *HR* Midazolam HCl 5 MG/5 ML VIAL IVP ONE (08:04)
[2017-04-19] MEDS ORDERED: *HR* Midazolam HCl 2 MG/2 ML VIAL IV ONE (08:04)
[2017-04-19] MEDS ORDERED: *HR* LORazepam 2 MG/ML VIAL IVP SCH (08:15)
--- NOTE | 2017-04-19 08:26 | Internal Med Progress Note ---
Date of Encounter: 04/19/17 Time of Encounter: 08:00 - Constitutional Vitals: Temp Pulse Resp BP Pulse Ox 98.4 F 89 16 101/76 100 04/19/17 07:30 04/19/17 06:00 04/19/17 08:00 04/19/17 06:00 04/19/17 08:00 General appearance: Present: cooperative, A&O X 3, answers questions appropriately Internal Medicine: Result - Labs CBC & Chem 7: 04/19/17 03:26 04/19/17 04:01 Labs: Short CBC 04/19/17 Range/Units 03:26 WBC 13.0 H (4.3-11.1) K/mcL Hgb 11.9 L (12.9-16.9) g/dL Hct 35.2 L (37.5-50.1) % Plt Count 169 (140-400) K/mcL Neutrophils # 11.3 H (1.6-8.9) K/mcL BMP 04/19/17 04:01 Sodium 141 Potassium 4.9 H Chloride 106 Carbon Dioxide 23 BUN 44 H D Creatinine 2.02 H Glucose 132 H Calcium 9.2 Cardiac Enzymes 04/18/17 Range/Units 09:42 Troponin I 24.39 H* (0-0.03) ng/mL Urine 04/18/17 Range/Units 16:12 Urine Color Yellow (Yellow) Urine Clarity Clear (Clear) Urine pH 6.0 (5.0-8.0) pH Units Ur Specific [place] >= 1.099 H (1.010-1.025) Urine Protein Trace (Neg-Trace) mg/dL Urine Glucose (UA) Normal (Normal) mg/dL - ABG Interpretation ABG results: ABG ABG pH 7.42 pH Units (7.32-7.45) 04/19/17 03:53 ABG pCO2 37 mmHg (35-45) 04/19/17 03:53 ABG pO2 89 mmHg (85-104) 04/19/17 03:53 ABG O2 Saturation 97 % (95-98) 04/19/17 03:53 PT/INR, D-dimer PT 12.8 Seconds (9.4-12.1) H 04/14/17 19:53 - Impressions Impressions Chest CTA 04/17/17 17:55 IMPRESSION: 1. No evidence of pulmonary embolic disease. 2. No acute pulmonary findings. Probable small focus of atelectasis within the right middle lobe laterally. Mild emphysematous changes. Trace bilateral pleural effusions with mild dependent bibasilar volume loss. 3. Ascending aortic aneurysm at 4.3 cm maximally. Prominent atherosclerotic changes in the aorta and coronary circulation. D/ / 04/17/2017 18:55:21 Ken Gutierrez MD / [email or web address] Interpreting Provider: Ken Gutierrez MD Chest X-Ray 04/18/17 07:41 IMPRESSION: 1. Interval placement of endotracheal and orogastric tubes, in satisfactory positions. 2. Slight interval worsening of mild CHF. 3. Interval worsening of multifocal airspace opacity, most likely a combination of asymmetric edema and superimposed pneumonia. D/ / 04/18/2017 08:16:13 Albino Odonnell MD / [email or web address] Interpreting Provider: Albino Odonnell MD X-Ray 04/18/17 07:52 IMPRESSION: 1. Orogastric tube in satisfactory position within the stomach. 2. Nonspecific bowel gas pattern, without evidence of free air. D/ / 04/18/2017 08:16:20 Albino Odonnell MD / Patience Newton Interpreting Provider: Albino Odonnell MD Chest X-Ray 04/19/17 07:20 IMPRESSION: Stable appearance to the chest demonstrating persistent interstitial edema or an atypical multilobar pneumonia. D/ / 04/19/2017 08:02:00 Tomi Hernandez MD / [email or web address] Interpreting Provider: Tomi Hernandez MD - VTE Documentation of Mechanical Device: Graduated compression elastic hosiery Consult Discharge Plan - Plan Referrals: matt, Cardiology [Other] (Office will call patient at home with follow up appointment) Minh Pierce MD [Primary Care Provider] - 04/23/17 11:30 am
[2017-04-19] MEDS: Fluticasone Propionate Nasal 50 MCG/SPRAY BOTTLE NS SCH (09:41)
[2017-04-19] MEDS: Isosorbide MONOnitrate (24 HR) 60 MG TAB.ER.24H PO SCH (09:42)
[2017-04-19] MEDS: amLODIPine 5 MG TABLET PO SCH (09:43)
[2017-04-19] MEDS: Chlorhexidine Rinse 15 ML MOUTHWASH MM SCH ×2 (09:44→20:24)
[2017-04-19] MEDS: Aspirin 81 MG TAB.CHEW PO SCH (09:44)
[2017-04-19] MEDS: Pantoprazole 40 MG VIAL IVP SCH (09:44)
[2017-04-19] MEDS: Multivit/Ca/Min/Fe/FA 1 TAB TABLET PO SCH (09:44)
[2017-04-19] MEDS: Folic Acid 1 MG TABLET PO SCH (09:46)
--- NOTE | 2017-04-19 10:36 | Cardiology Progress Note ---
Date of Encounter: 04/19/17 Time of Encounter: 09:30 Assessment and Plan (1) Acute respiratory failure Current Visit: Yes Status: Acute Per Cardiology: Remains on Vent managed by Pulm. Currently sedated with Precedex and Fentanyl. Qualifiers: Respiratory failure complication: hypoxia and hypercapnia Qualified Code(s) : J96.01 - Acute respiratory failure with hypoxia; J96.02 - Acute respiratory failure with hypercapnia; J96.02 - Acute respiratory failure with hypercapnia; J96.02 - Acute respiratory failure with hypercapnia (2) Non-ST elevation [place] (NSTEMI) Current Visit: Yes Status: Acute Per cardiology: NSTEMI with peak troponin 48.79, then downward trend. Initial LHC with 100% LAD stenosis, WRIGHT to LAD patent, 80% proximal circumflex stenosis with RANDEE placed , 100% Proximal RCA, SVG to OM occluded, SVG to circumflex occluded, SVG to RCA occluded. Seen again for flash pulmonary edema/intubated. Troponin increased back up to 24.32. Repeat LHC yesterday: S/P CABG 1 of 4 patent bypass grafts. There is a previous stent in 2nd Marginal with severe in-stent stenosis that was not intervened on. Patient had successful Drug-Eluting Stent placement in the distal Circ. On Hep gtt, asa, statin, beta corrie, imdur, and plavix. Repeat echo results pending. Will DC IV Hep. gtt. (3) JOHN (acute kidney injury) Current Visit: Yes Status: Acute Per Cardiology: Creat was normal, now up to 2.02. S/p 2 recent LHC and on IV Lasix 40mg BID. Net I&O -1645ml. CXR today: IMPRESSION: Stable appearance to the chest demonstrating persistent interstitial edema or an atypical multilobar pneumonia. Discussed with Dr. Valerio-- increase IV Lasix to 80mg BID. Off other nephrotoxics. Rec Nephrology c/s. (4) Dementia Current Visit: Yes Status: Chronic Per Cardiology: Underlying dementia. Currently sedated and intubated. Qualifiers: Dementia type: Alzheimer's disease Alzheimer's disease onset: early-onset Dementia behavioral disturbance: without behavioral disturbance Qualified Code(s): G30.0 - Alzheimer's disease with early onset; F02.80 - Dementia in other diseases classified elsewhere without behavioral disturbance; F02.80 - Dementia in other diseases classified elsewhere without behavioral disturbance; F02.80 - Dementia in other diseases classified elsewhere without behavioral disturbance Discussion w patient/family: Thank you for involving us in the care of your patient. Please call with any questions. Subjective Principal diagnosis: NSTEMI Interval history: Patient seen today sedated and intubated. On Precedex and Fentanyl. . No family at bedside. No following of verbal commands. Objective Vital Signs, Last 4 Hours Temp Pulse Resp BP Pulse Ox 04/19/17 10:00 14 99/67 100 04/19/17 09:02 90 16 97/71 100 04/19/17 08:00 86 16 100/74 100 04/19/17 07:30 98.4 F HEENT: Atraumatic, Normocephaly Cardiac: Reg Rate and Rhythm, Normal S1 and S2, No Murmur Lungs: Other (intubated; decreased anteriorly) Neuro: Other (sedated) Skin: No rashes noted on visualized skin, Other (Right groin site dry and intact , no hematoma, no bleeding, no ecchymosis, bilateral DP and posterior tibial pulses dopplable) Extremities: No Edema, Normal Pulses Results 04/19/17 03:26 04/19/17 04:01 Lab Results Laboratory Tests 04/14/17 04/15/17 04/15/17 19:53 02:28 08:14 Creatinine Est GFR (Non-Af Amer) Troponin I 13.10 H* 35.02 H* 48.79 H* TSH 04/15/17 04/17/17 04/17/17 12:45 06:26 19:23 Creatinine 1.10 Est GFR (Non-Af Amer) > 60 Troponin I 12.69 H* TSH 0.818 04/18/17 04/19/17 09:42 04:01 Creatinine 2.02 H Est GFR (Non-Af Amer) 32 L Troponin I 24.39 H* TSH ITS Impressions Echocardiogram 04/15/17 11:00 Impressions: LVEF 60%. Mild left ventricular diastolic dysfunction. Normal right ventricular structure and function. No significant valvular dysfunction. Estimated RVSP was 20 mmHg. No pulmonary hypertension. Left Ventricular Wall Motion: Rest Echo Findings All wall segments showed normal motion. Findings: Study Quality * Technically adequate exam. ECG Findings * Normal sinus rhythm. Left Ventricle * LVEF 60%. * Mild left ventricular diastolic dysfunction. Right Ventricle * Normal right ventricular structure and function. Left Atrium * Normal left atrial size. Right Atrium * Normal right atrial size. Interatrial Septum * No evidence of PFO by color Doppler. Aortic Valve * Aortic valve not well visualized. * No aortic regurgitation. * No aortic stenosis. Mitral Valve * Normal mitral valve structure and function. Tricuspid Valve * Mild tricuspid regurgitation. Pulmonic Valve * Pulmonic valve not well visualized. Aorta * Normally sized aortic root. Pericardium * The pericardium appears normal. IVC * Normal IVC dimensions and inspiratory collapse. Head CT 04/16/17 09:39 IMPRESSION: No acute intracranial abnormality. D/ : / 04/16/2017 11:06:17 Emil Clark MD / [place] Interpreting Provider: Emil Clark MD Echocardiogram Limited Views 04/16/17 10:22 Impressions: LVEF 50%. Low normal LV systolic function. Not all wall segments were well visualized. Asymmetric basal septal hypertrophy. Left Ventricular Wall Motion: Rest Echo Findings The mid anterior lateral and basal anterior lateral ruiz were not visualized. All other wall segments showed normal motion. Findings: Study Quality * Technically adequate exam. ECG Findings * Normal sinus rhythm. Left Ventricle * Asymmetric basal septal hypertrophy. * LVEF 50%. Right Ventricle * RV is not well evaluated on this limited study. Chest CTA 04/17/17 17:55 IMPRESSION: 1. No evidence of pulmonary embolic disease. 2. No acute pulmonary findings. Probable small focus of atelectasis within the right middle lobe laterally. Mild emphysematous changes. Trace bilateral pleural effusions with mild dependent bibasilar volume loss. 3. Ascending aortic aneurysm at 4.3 cm maximally. Prominent atherosclerotic changes in the aorta and coronary circulation. D/ / 04/17/2017 18:55:21 Ken Gutierrez MD / [place] Interpreting Provider: Ken Gutierrez MD Chest X-Ray 04/18/17 03:33 IMPRESSION: Pulmonary edema. D/ / Faustino Zheng MD / Faustino Zheng MD Interpreting Provider: Faustino Zheng MD Chest X-Ray 04/18/17 07:41 IMPRESSION: 1. Interval placement of endotracheal and orogastric tubes, in satisfactory positions. 2. Slight interval worsening of mild CHF. 3. Interval worsening of multifocal airspace opacity, most likely a combination of asymmetric edema and superimposed pneumonia. D/ / 04/18/2017 08:16:13 Albino Odonnell MD / jonny Interpreting Provider: Albino Odonnell MD X-Ray 04/18/17 07:52 IMPRESSION: 1. Orogastric tube in satisfactory position within the stomach. 2. Nonspecific bowel gas pattern, without evidence of free air. D/ / 04/18/2017 08:16:20 Albino Odonnell MD / Patience [place] Interpreting Provider: Albino Odonnell MD Chest X-Ray 04/19/17 07:20 IMPRESSION: Stable appearance to the chest demonstrating persistent interstitial edema or an atypical multilobar pneumonia. D/ / 04/19/2017 08:02:00 Tomi Hernandez MD / jonny Interpreting Provider: Tomi Hernandez MD Intake & Output 04/16/17 04/17/17 04/18/17 04/19/17 23:59 23:59 23:59 23:59 Intake Total 220 / 220 360 / 360 250 / 250 523 / 523 Output Total 500 / 500 650 / 650 875 / 875 400 / 400 Balance -280 / -280 -290 / -290 -625 / -625 123 / 123 Weight 86.5 kg 82.2 kg Active Medications Acetylcysteine (Acetylcysteine 20%) 600 mg PO Q12H MANDIE Stop: 04/19/17 18:05 Last Admin: 04/19/17 06:26 Dose: 600 mg Albuterol Sulfate (Proventil Neb) 2.5 mg IH Q2H PRN PRN Reason: Shortness Of Breath/Wheezing Stop: 10/14/17 20:44 Last Admin: 04/18/17 01:43 Dose: 2.5 mg Albuterol/Ipratropium (Duoneb) 3 ml IH [id number] PRN PRN Reason: Shortness Of Breath/WHEEZE Stop: 10/15/17 04:14 Last Admin: 04/19/17 00:01 Dose: 3 ml Amlodipine Besylate (Norvasc) 5 mg PO DAILY MANDIE PRN Reason: Protocol Stop: 10/15/17 16:31 Last Admin: 04/19/17 09:43 Dose: Not Given Artificial Tears (Lacri-Lube) 1 appl BOTH EYES Q4HR MANDIE PRN Reason: Protocol Stop: 10/18/17 08:01 Last Admin: 04/19/17 10:03 Dose: 1 appl Artificial Tears (Lacri-Lube) 1 appl BOTH EYES Q2HR PRN; Protocol PRN Reason: Dry Eyes Stop: 10/18/17 07:47 Aspirin (Aspirin) 81 mg PO DAILY MANDIE Stop: 10/18/17 09:01 Last Admin: 04/19/17 09:44 Dose: 81 mg Atorvastatin Calcium (Lipitor) 40 mg PO HS MANDIE Stop: 10/15/17 21:01 Last Admin: 04/18/17 20:38 Dose: 40 mg Chlorhexidine Gluconate (Chlorhexidine Rinse) 15 ml MM BID MANDIE Stop: 10/18/17 09:01 Last Admin: 04/19/17 09:44 Dose: 15 ml Clonazepam (Klonopin) 0.5 mg PO HS MANDIE Stop: 10/15/17 21:01 Last Admin: 04/18/17 20:39 Dose: Not Given Clopidogrel Bisulfate (Plavix) 75 mg PO DAILY MANDIE Stop: 10/15/17 09:01 Last Admin: 04/19/17 09:44 Dose: 75 mg Dextrose/Water (Dextrose 50% (Syg)) 25 ml IVP AD PRN PRN Reason: Hypoglycemia Stop: 10/18/17 10:20 Fluticasone Propionate (Flonase) 100 mcg NS DAILY MANDIE PRN Reason: Protocol Stop: 10/15/17 09:01 Last Admin: 04/19/17 09:41 Dose: Not Given Folic Acid (Folic Acid) 1 mg PO DAILY MANDIE Stop: 10/17/17 14:01 Last Admin: 04/19/17 09:46 Dose: 1 mg Furosemide (Lasix) 40 mg IVP 0600,1800 MANDIE Stop: 10/18/17 06:01 Last Admin: 04/19/17 05:39 Dose: 40 mg Glucagon (Glucagen) 1 mg IM ONCE PRN PRN Reason: Hypoglycemia Stop: 10/18/17 10:20 Glucose (Gluctose) 15 gm PO ONCE PRN PRN Reason: Hypoglycemia Stop: 10/18/17 10:20 Glucose (Gluctose) 30 gm PO ONCE PRN PRN Reason: Hypoglycemia Stop: 10/18/17 10:20 Dexmedetomidine HCl (Precedex Premix) 400 mcg in 100 mls @ 4.325 mls/hr IVC .Q23H8M MANDIE; 0.2 MCG/KG/HR PRN Reason: Protocol Stop: 10/18/17 07:46 Last Admin: 04/19/17 09:43 Dose: 0.7 mcg/kg/hr, 15.138 mls/hr Fentanyl Citrate 1,000 mcg/ (Sodium Chloride) 100 mls @ 5 mls/hr IVC CONT MANDIE; 50 MCG/HR PRN Reason: Protocol Stop: 10/18/17 07:46 Last Admin: 04/18/17 23:56 Dose: 100 mcg/hr, 10 mls/hr Dextrose (Dextrose 5%) 1,000 mls @ 100 mls/hr IVC .Q10H PRN PRN Reason: HYPOGLYCEMIA Stop: 10/18/17 10:20 Heparin Sodium/Dextrose (Heparin 25,000 Unit/500 Ml D5w) 25,000 unit in 500 mls @ 20.76 mls/hr IVC .Q24H MANDIE; 12 UNIT/KG/HR PRN Reason: Protocol Stop: 10/18/17 11:01 Last Admin: 04/18/17 12:19 Dose: 12 unit/kg/hr, 20.76 mls/hr Ibuprofen (Motrin) 200 mg PO Q6HR PRN; Protocol PRN Reason: FEVER/PAIN Stop: 10/15/17 16:28 Last Admin: 04/16/17 21:00 Dose: 200 mg Insulin Human Lispro (Humalog) 0 units SQ Q6HR MANDIE PRN Reason: Protocol Stop: 10/18/17 12:01 Last Admin: 04/19/17 05:49 Dose: 4 units Isosorbide Mononitrate (Imdur) 60 mg PO DAILY [facility] Stop: 10/15/17 09:01 Last Admin: 04/19/17 09:42 Dose: Not Given Levalbuterol HCl (Xopenex) 1.25 mg IH QIDR [facility] Stop: 10/18/17 05:01 Last Admin: 04/19/17 05:05 Dose: 1.25 mg Levothyroxine Sodium (Synthroid) 75 mcg PO 0630 [facility] Stop: 10/15/17 06:31 Last Admin: 04/19/17 05:42 Dose: 75 mcg Lorazepam (Ativan) 0.5 mg IVP Q12H [facility] Stop: 10/19/17 08:16 Last Admin: 04/19/17 09:41 Dose: Not Given Memantine (Namenda) 10 mg PO BID [facility] Stop: 10/15/17 09:01 Last Admin: 04/19/17 09:45 Dose: 10 mg Metoprolol Tartrate (Lopressor) 25 mg PO BID [facility] Stop: 10/18/17 21:01 Last Admin: 04/19/17 09:43 Dose: Not Given Metronidazole (Flagyl) 500 mg PO Q8H MANDIE PRN Reason: Protocol Stop: 10/16/17 20:01 Last Admin: 04/19/17 03:55 Dose: 500 mg Midazolam HCl (Versed) 2 mg IVP Q5MIN PRN PRN Reason: Anxiety Stop: 10/18/17 08:02 Last Admin: 04/18/17 08:06 Dose: 2 mg Mirtazapine (Remeron) 30 mg PO HS [facility] Stop: 10/15/17 21:01 Last Admin: 04/18/17 20:39 Dose: 30 mg Montelukast Sodium (Singulair) 10 mg PO DAILY [facility] Stop: 10/15/17 09:01 Last Admin: 04/19/17 09:46 Dose: 10 mg Multivitamins/Calcium (Thera M Plus) 1 tab PO DAILY [facility] Stop: 10/15/17 09:01 Last Admin: 04/19/17 09:44 Dose: 1 tab Naloxone HCl (Narcan) 0.4 mg IVP Q2MIN PRN PRN Reason: Opioid Reversal Stop: 10/14/17 20:07 Last Admin: 04/16/17 09:40 Dose: 0.4 mg Nitroglycerin (Nitroglycerin) 0.4 mg SL Q5M PRN PRN Reason: Chest Pain Stop: 10/15/17 04:14 Last Admin: 04/17/17 17:57 Dose: 0.4 mg Nitroglycerin (Nitroglycerin) 1 inch TP Q6HNTG MANDIE Stop: 10/17/17 17:46 Last Admin: 04/19/17 05:36 Dose: Not Given Ondansetron HCl (Zofran) 4 mg IVP Q8HR PRN PRN Reason: Nausea And Vomiting Stop: 10/14/17 20:07 Oxycodone/Acetaminophen (Percocet 10/325) 1 each PO Q6H PRN PRN Reason: Mild Pain Stop: 10/15/17 08:03 Last Admin: 04/18/17 00:03 Dose: 1 each Pantoprazole Sodium (Protonix) 40 mg IVP DAILY [facility] Stop: 10/18/17 09:01 Last Admin: 04/19/17 09:44 Dose: 40 mg Trazodone HCl (Trazodone) 100 mg PO HS [facility] Stop: 10/15/17 21:01 Last Admin: 04/18/17 20:40 Dose: Not Given - Imaging and Cardiology Echo: pending, report reviewed Cardiac cath: report reviewed - VTE Documentation of Mechanical Device: Graduated compression elastic hosiery Consult Discharge Plan - Plan Referrals: matt, Cardiology [Other] (Office will call patient at home with follow up appointment) Minh Pierce MD [Primary Care Provider] - 04/23/17 11:30 am
[2017-04-19] MEDS ORDERED: Furosemide 40 MG/4 ML VIAL IVP ONE (10:51)
--- NOTE | 2017-04-19 11:22 | Event Note ---
Date of Encounter: 04/19/17 Time of Encounter: 11:20 - Cardiology Event Note Discussed with Pulreinier and Dr. Valerio, will discontinue lasix for now. Consider resuming if needed. Again, rec nephrology c/s.
--- NOTE | 2017-04-19 13:56 | Pulmonology Progress Note ---
<MaryBrigidHeribertoPolo - Last Filed: 04/19/17 13:56> Date of Encounter: 04/19/17 Time of Encounter: 08:00 Assessment and Plan (1) Acute respiratory failure Current Visit: Yes Status: Acute - Significant respiratory distress with accessory muscle use despite of being on BiPAP and eventually intubated on 04/18/17. - Likely secondary to pulmonary edema related to IV hydration (for C. difficle diarrhea) in the setting of severe systolic CHF. - Patient's baseline anxiety/agitaton likely also contribute to his respiratory distress. Will resume patient's home dose Klonopin. - Currently intubated and on ventilation support. Improves at normal ABG today. - Continue current diuresis regimen for CHF and bronchodilators for COPD. - Continue close monitoring in ICU. Qualifiers: Respiratory failure complication: unspecified whether with hypoxia or hypercapnia Qualified Code(s): J96.00 - Acute respiratory failure, unspecified whether with hypoxia or hypercapnia (2) Non-ST elevation [place] (NSTEMI) Current Visit: Yes Status: Acute - Initial troponin at 13.10 on 04/14/17, later peaked at 48.79 on 04/15/17 then downtrended to 12.69 on 04/17/17 - LHC on 04/14/17: Severe 1-V CAD S/P CABG 1 of 4 patent bypass grafts with LVEF 60%, a RANDEE placed in the the proximal Circ. - Echo on 04/15/17: LVEF 60% with mild left ventricular diastolic dysfunction. - Troponin elevated to 24.39 on 04/18/17. - LHC on 04/18/17: evere 3-V CAD S/P CABG 1 of 4 patent bypass grafts, a previous stent in 2nd Marginal with severe in-stent stenosis, and a RANDEE placement in the distal Circ. - Echo on 04/18/17: LVE 15-20% with severe global LV systolic dysfunction, which appears since prior study. - Continue aspirin, Plavix, Lopressor, Lipitor and Imdur. - Poor prognosis per cardiology. Appreciate cardiology input. (3) JOHN (acute kidney injury) Current Visit: Yes Status: Acute - SCr 2.02 / eGFR 32 compared to SCr 1.36 / eGFR 51 yesterday. - Likely secondary to contrast in the setting of diuresis. - Avoid nephrotoxin. Also avoid increase of diuresis at this time. - Continue to monitor renal function and electrolytes closely. - May consider nephrology consult if persists or aggravates. (4) Systolic CHF Current Visit: Yes Status: Acute - Echo on 04/18/17: LVE 15-20% with severe global LV systolic dysfunction, which appears since prior study. - Continue current regimen of diuresis. - Net -1548 mL so far. - Strict I/O and daily weight. Qualifiers: Congestive heart failure chronicity: acute Qualified Code(s): I50.21 - Acute systolic (congestive) heart failure (5) Coronary artery disease Current Visit: Yes Status: Chronic - Severe CAD s/p CABG in 2008. - Continue aspirin, Plavix, Lopressor, Imdur and Lipitor. Qualifiers: Coronary Disease-Associated Artery/Lesion type: bypass graft [place] vs. transplanted heart: [place] heart Associated angina: with unstable angina Qualified Code(s): I25.700 - Atherosclerosis of coronary artery bypass graft(s) , unspecified, with unstable angina pectoris (6) C. difficile diarrhea Current Visit: Yes Status: Acute - Positive stool C. difficile toxin gene PCR on 04/16/17. - Continue metronidazole (since 04/16/17). (7) Hypertension Current Visit: Yes Status: Chronic - Continue metoprolol. Qualifiers: Hypertension type: essential hypertension Qualified Code(s): I10 - Essential (primary) hypertension (8) Hypothyroidism Current Visit: Yes Status: Chronic - Continue Synthroid. Qualifiers: Hypothyroidism type: acquired Qualified Code(s): E03.9 - Hypothyroidism, unspecified (9) Dementia Current Visit: Yes Status: Chronic - Continue memantine Qualifiers: Dementia type: Alzheimer's disease Alzheimer's disease onset: early-onset Dementia behavioral disturbance: without behavioral disturbance Qualified Code(s): G30.0 - Alzheimer's disease with early onset; F02.80 - Dementia in other diseases classified elsewhere without behavioral disturbance; F02.80 - Dementia in other diseases classified elsewhere without behavioral disturbance; F02.80 - Dementia in other diseases classified elsewhere without behavioral disturbance (10) Peripheral vascular disease Current Visit: Yes Status: Chronic (11) DVT prophylaxis Current Visit: Yes Status: Acute - Start SQ heparin. GI prophylaxis: Protonix IV. Subjective Principal diagnosis: NSTEMI Interval history: Patient had emergent LHC last night with RANDEE placed in the distal Circ. Patient was seen and examined this morning. Patient is still sedated and intubated. No family member at bedside. Objective PUL Vital signs: Last Vital Signs Temp 98.7 F 04/19/17 11:37 Pulse 90 04/19/17 12:00 Resp 14 04/19/17 12:00 BP 102/72 04/19/17 12:00 Pulse Ox 100 04/19/17 12:00 General appearance: comatose Eyes: nonicteric ENT: other (Intubated) Neck: supple Effort: normal Auscultation: bilateral: clear Cardiovascular: regular rate and rhythm Gastrointestinal: normoactive bowel sounds, soft Integumentary: normal Extremities: no cyanosis, no edema Musculoskeletal: no deformities unable to assess due to mental status Ventilator Settings Ventilator Settings: Ventilator Settings, Last 8 Hours Ventilator Mode VC+ Ventilator Mode VC+ Ventilator Mode VC+ Ventilator Mode VC+ Ventilator Mode VC+ Ventilator Mode VC+ Ventilator Mode VC+ Ventilator Mode A/C Ventilator Tidal Volume 500 Setting Ventilator Tidal Volume 500 Setting Ventilator Tidal Volume 500 Setting Ventilator Tidal Volume 500 Setting Ventilator Tidal Volume 500 Setting Ventilator Tidal Volume 500 Setting Ventilator Tidal Volume 500 Setting Ventilator Tidal Volume 500 Setting Ventilator Respiratory Rate 12 Setting Ventilator Respiratory Rate 12 Setting Ventilator Respiratory Rate 12 Setting Ventilator Respiratory Rate 12 Setting Ventilator Respiratory Rate 12 Setting Ventilator Respiratory Rate 12 Setting Ventilator Respiratory Rate 12 Setting Ventilator Respiratory Rate 12 Setting Actual Respiratory Rate 12 Actual Respiratory Rate 12 Actual Respiratory Rate 12 Actual Respiratory Rate 14 Actual Respiratory Rate 18 Actual Respiratory Rate 16 Actual Respiratory Rate 17 Actual Respiratory Rate 16 Positive End Expiratory 5 Pressure Positive End Expiratory 5 Pressure Positive End Expiratory 5 Pressure Positive End Expiratory 5 Pressure Positive End Expiratory 5 Pressure Positive End Expiratory 5 Pressure Positive End Expiratory 5 Pressure Positive End Expiratory 5 Pressure Peak Inspiratory Airway 11 Pressure Peak Inspiratory Airway 23 Pressure Peak Inspiratory Airway 24 Pressure Peak Inspiratory Airway 11 Pressure Peak Inspiratory Airway 11 Pressure Peak Inspiratory Airway 11 Pressure Peak Inspiratory Airway 11 Pressure Peak Inspiratory Airway 16 Pressure Results - Laboratory Findings CBC and BMP: 04/19/17 03:26 04/19/17 04:01 ABG ABG pH 7.42 pH Units (7.32-7.45) 04/19/17 03:53 ABG pCO2 37 mmHg (35-45) 04/19/17 03:53 ABG pO2 89 mmHg (85-104) 04/19/17 03:53 ABG O2 Saturation 97 % (95-98) 04/19/17 03:53 PT/INR, D-dimer PT 12.8 Seconds (9.4-12.1) H 04/14/17 19:53 Abnormal lab findings: Abnormal lab results WBC 13.0 K/mcL (4.3-11.1) H 04/19/17 03:26 RBC 3.70 M/mcL (4.19-5.50) L 04/19/17 03:26 Hgb 11.9 g/dL (12.9-16.9) L 04/19/17 03:26 Hct 35.2 % (37.5-50.1) L 04/19/17 03:26 Neutrophils # 11.3 K/mcL (1.6-8.9) H 04/19/17 03:26 PT 12.8 Seconds (9.4-12.1) H 04/14/17 19:53 Potassium 4.9 mEq/L (3.5-4.5) H 04/19/17 04:01 BUN 44 mg/dL (8-26) H D 04/19/17 04:01 Creatinine 2.02 mg/dL (0.72-1.25) H 04/19/17 04:01 Est GFR ( Amer) 39 (> 60) L 04/19/17 04:01 Est GFR (Non-Af Amer) 32 (> 60) L 04/19/17 04:01 Glucose 132 mg/dL (70-99) H 04/19/17 04:01 POC Glucose 201 (58-89) H 04/19/17 11:12 Calculated Osmolality 305 (280-300) H 04/19/17 04:01 Troponin I 24.39 ng/mL (0-0.03) H* 04/18/17 09:42 Triglycerides 154 mg/dL (< 150) H 04/15/17 02:28 VLDL Cholesterol, Calc 31 mg/dL (< 31) H 04/15/17 02:28 HDL Cholesterol 31 mg/dL (40-59) L 04/15/17 02:28 Vitamin B12 180 pg/mL (213-816) L 04/17/17 10:48 Prolactin 49.22 ng/mL (3.46-19.40) H 04/16/17 09:42 Ur Specific [place] >= 1.099 (1.010-1.025) H 04/18/17 16:12 Urine Blood Large (Negative) H 04/18/17 16:12 Urine Microscopic RBC 5-15 per hpf (0-3) H 04/18/17 16:12 Urine Microscopic WBC 3-5 per hpf (0-3) H 04/18/17 16:12 - Microbiology Findings Microbiology Findings: Microbiology, Last 48 Hours 04/16/17 09:42 Blood Culture - Preliminary Peripheral Venipuncture No growth. 04/16/17 09:42 Blood Culture - Preliminary Peripheral Venipuncture No growth. 04/16/17 16:35 Urine Culture - Final Urine,Clean Catch No growth. - Diagnostic Findings Chest x-ray: report reviewed, image reviewed - Clinical Findings Intake & Output: Intake & Output 04/18/17 04/19/17 04/19/17 23:59 07:59 15:59 Intake Total 179 / 179 243 / 243 527 / 527 Output Total 325 / 325 400 / 400 250 / 250 Balance -146 / -146 -157 / -157 277 / 277 Weight 82.2 kg - VTE Documentation of Mechanical Device: Graduated compression elastic hosiery Consult Discharge Plan - Plan Referrals: matt, Cardiology [Other] (Office will call patient at home with follow up appointment) Minh Pierce MD [Primary Care Provider] - 04/23/17 11:30 am <Blayne Chirinos - Last Filed: 04/19/17 16:41> Date of Encounter: 04/19/17 Objective PUL Vital signs: Last Vital Signs Temp 97.1 F L 04/19/17 15:36 Pulse 91 04/19/17 16:00 Resp 18 04/19/17 16:00 BP 104/70 04/19/17 16:00 Pulse Ox 100 04/19/17 16:00 Ventilator Settings Ventilator Settings: Ventilator Settings, Last 8 Hours Ventilator Mode VC+ Ventilator Mode VC+ Ventilator Mode VC+ Ventilator Mode VC+ Ventilator Mode VC+ Ventilator Mode VC+ Ventilator Mode VC+ Ventilator Mode VC+ Ventilator Mode VC+ Ventilator Mode VC+ Ventilator Tidal Volume 500 Setting Ventilator Tidal Volume 500 Setting Ventilator Tidal Volume 500 Setting Ventilator Tidal Volume 500 Setting Ventilator Tidal Volume 500 Setting Ventilator Tidal Volume 500 Setting Ventilator Tidal Volume 500 Setting Ventilator Tidal Volume 500 Setting Ventilator Tidal Volume 500 Setting Ventilator Tidal Volume 500 Setting Ventilator Respiratory Rate 12 Setting Ventilator Respiratory Rate 12 Setting Ventilator Respiratory Rate 12 Setting Ventilator Respiratory Rate 12 Setting Ventilator Respiratory Rate 12 Setting Ventilator Respiratory Rate 12 Setting Ventilator Respiratory Rate 12 Setting Ventilator Respiratory Rate 12 Setting Ventilator Respiratory Rate 12 Setting Ventilator Respiratory Rate 12 Setting Actual Respiratory Rate 18 Actual Respiratory Rate 20 Actual Respiratory Rate 19 Actual Respiratory Rate 21 Actual Respiratory Rate 20 Actual Respiratory Rate 12 Actual Respiratory Rate 12 Actual Respiratory Rate 12 Actual Respiratory Rate 14 Actual Respiratory Rate 18 Positive End Expiratory 5 Pressure Positive End Expiratory 5 Pressure Positive End Expiratory 5 Pressure Positive End Expiratory 5 Pressure Positive End Expiratory 5 Pressure Positive End Expiratory 5 Pressure Positive End Expiratory 5 Pressure Positive End Expiratory 5 Pressure Positive End Expiratory 5 Pressure Positive End Expiratory 5 Pressure Peak Inspiratory Airway 11 Pressure Peak Inspiratory Airway 11 Pressure Peak Inspiratory Airway 1,311 Pressure Peak Inspiratory Airway 13 Pressure Peak Inspiratory Airway 11 Pressure Peak Inspiratory Airway 11 Pressure Peak Inspiratory Airway 23 Pressure Peak Inspiratory Airway 24 Pressure Peak Inspiratory Airway 11 Pressure Peak Inspiratory Airway 11 Pressure Results - Laboratory Findings CBC and BMP: 04/19/17 03:26 04/19/17 04:01 ABG ABG pH 7.42 pH Units (7.32-7.45) 04/19/17 03:53 ABG pCO2 37 mmHg (35-45) 04/19/17 03:53 ABG pO2 89 mmHg (85-104) 04/19/17 03:53 ABG O2 Saturation 97 % (95-98) 04/19/17 03:53 PT/INR, D-dimer PT 12.8 Seconds (9.4-12.1) H 04/14/17 19:53 Abnormal lab findings: Abnormal lab results WBC 13.0 K/mcL (4.3-11.1) H 04/19/17 03:26 RBC 3.70 M/mcL (4.19-5.50) L 04/19/17 03:26 Hgb 11.9 g/dL (12.9-16.9) L 04/19/17 03:26 Hct 35.2 % (37.5-50.1) L 04/19/17 03:26 Neutrophils # 11.3 K/mcL (1.6-8.9) H 04/19/17 03:26 PT 12.8 Seconds (9.4-12.1) H 04/14/17 19:53 Potassium 4.9 mEq/L (3.5-4.5) H 04/19/17 04:01 BUN 44 mg/dL (8-26) H D 04/19/17 04:01 Creatinine 2.02 mg/dL (0.72-1.25) H 04/19/17 04:01 Est GFR ( Amer) 39 (> 60) L 04/19/17 04:01 Est GFR (Non-Af Amer) 32 (> 60) L 04/19/17 04:01 Glucose 132 mg/dL (70-99) H 04/19/17 04:01 POC Glucose 201 (58-89) H 04/19/17 11:12 Calculated Osmolality 305 (280-300) H 04/19/17 04:01 Troponin I 24.39 ng/mL (0-0.03) H* 04/18/17 09:42 Triglycerides 154 mg/dL (< 150) H 04/15/17 02:28 VLDL Cholesterol, Calc 31 mg/dL (< 31) H 04/15/17 02:28 HDL Cholesterol 31 mg/dL (40-59) L 04/15/17 02:28 Vitamin B12 180 pg/mL (213-816) L 04/17/17 10:48 Prolactin 49.22 ng/mL (3.46-19.40) H 04/16/17 09:42 Ur Specific [place] >= 1.099 (1.010-1.025) H 04/18/17 16:12 Urine Blood Large (Negative) H 04/18/17 16:12 Urine Microscopic RBC 5-15 per hpf (0-3) H 04/18/17 16:12 Urine Microscopic WBC 3-5 per hpf (0-3) H 04/18/17 16:12 - Microbiology Findings Microbiology Findings: Microbiology, Last 48 Hours 04/16/17 09:42 Blood Culture - Preliminary Peripheral Venipuncture No growth. 04/16/17 09:42 Blood Culture - Preliminary Peripheral Venipuncture No growth. 04/16/17 16:35 Urine Culture - Final Urine,Clean Catch No growth. - Clinical Findings Intake & Output: Intake & Output 04/19/17 04/19/17 04/19/17 07:59 15:59 23:59 Intake Total 243 / 243 687 / 687 100 / 100 Output Total 400 / 400 450 / 450 Balance -157 / -157 237 / 237 100 / 100 Weight 82.2 kg - Attending Attestation I examined this patient and my medical decision-making was reviewed with the Resident Physician. I agree with the documented findings, disposition and treatment plan as described except to the extent set forth below. Patient seen and examined. Labs, radiology, chart personally reviewed. Agree with resident's history and physical, assessment, plan with following comments: OUTCOMES MANAGER: Patient does not follows commands, I'm concerned about the patient's anxiety if we attempt spontaneous breathing trial and to resume his home medication before we attempt at. Pulmonary: Acceptable oxygenation and ventilation. She has significant intrinsic PEEP and I have changed his main setting with significant improvement and then to mode was changed to VC +. Overall he is getting better but not quite ready for that then his breathing trial. Cardiovascular: Cardiology is following. GI: Nutrition per dietary and GI prophylaxis per routine Heme: DVT prophylaxis per routine ID: Continue antibiotics and plan to de-escalation Renal; urine out put and renal funtion reviewed. This patient is responding to current dose of diuresis discussed with cardiology team because some concern about worsening his renal function is increase diuresis since patient had contrast for his cardiac catheterization. Endorcine: blood glucose is monitored Lines: all lines checked and no evidence of infections Skin: skin care to prevent pressure ulcers per nursing routine care I spent 35 min of Critical Care time with this patient. It involved decision making of high complexity to assess, manipulate, and support vital organ system failure and/or to prevent further life threatening deterioration of the patient' s condition. The time involved in the performance of separately reportable procedures was not counted toward critical care time.
[2017-04-19] MEDS: FentaNYL (PF) 1,000 MCG in 0.9 % Sodium Chloride 80 ML IVC SCH (14:11)
[2017-04-19] MEDS: *HR* Heparin 5,000 UNIT/ML VIAL SQ SCH ×2 (15:54→22:37)
[2017-04-19] MEDS ORDERED: Furosemide 40 MG/4 ML VIAL IVP SCH (18:00)
[2017-04-19] MEDS: clonazePAM 0.5 MG TABLET PO SCH (20:24)
[2017-04-19] MEDS: Mirtazapine 15 MG TABLET PO SCH (20:24)
[2017-04-19] MEDS: traZODone 50 MG TABLET PO SCH (20:24)
[2017-04-20] MEDS: FentaNYL (PF) 1,000 MCG in 0.9 % Sodium Chloride 80 ML IVC SCH ×3 (02:55→21:12)
[2017-04-20 03:00] LABS: Basophils % 0.1 %; Hematocrit 35.4 % (37.5-50.1); Hemoglobin 11.8 g/dL (12.9-16.9); Immature Granulocytes % 0.4 % (0-4); Lymphocytes # 1.4 K/mcL (0.6-4.6); Lymphocytes % 12.4 %; Mean Corpuscular HGB Conc 33.3 g/dL (31.6-35.5); Mean Corpuscular Hemoglobin 31.9 pg (28.0-33.3); Mean Corpuscular Volume 95.7 fL (83.0-100.0); Mean Platelet Volume 11.2 fL (9.4-12.4); Monocytes # 0.9 K/mcL (0.0-1.3); Monocytes % 8.1 %; Neutrophils # 8.8 K/mcL (1.6-8.9); Platelet Count 161 K/mcL (140-400); Red Cell Distribution Width 13.6 % (11.5-14.5)
[2017-04-20 03:12] LABS: Calcium 8.5 mg/dL (8.6-10.8); Phosphorous 2.9 mg/dL (2.3-4.7); Potassium 4.6 mEq/L (3.5-4.5)
[2017-04-20] MEDS: Lacri-Lube 3.5 GM TUBE BOTH EYES SCH ×7 (03:23→23:28)
[2017-04-20] MEDS: metroNIDAZOLE 500 MG TABLET PO SCH ×3 (03:24→20:39)
[2017-04-20] MEDS: Dexmedetomidine HCl 400 MCG/100 ML MLS IVC SCH ×3 (03:42→17:30)
[2017-04-20] MEDS: Levalbuterol Neb 1.25 MG/3 ML IH SCH ×4 (04:00→23:27)
[2017-04-20] MEDS: *HR* Heparin 5,000 UNIT/ML VIAL SQ SCH ×3 (05:45→22:14)
[2017-04-20] MEDS: Insulin LISPRO 300 UNITS/3 ML VIAL SQ SCH ×5 (05:46→23:28)
[2017-04-20] MEDS: Nitroglycerin 1 INCH/GM PACKET TP SCH (05:51)
[2017-04-20] MEDS: Pantoprazole 40 MG VIAL IVP SCH (07:31)
[2017-04-20] MEDS: Isosorbide MONOnitrate (24 HR) 60 MG TAB.ER.24H PO SCH (07:31)
[2017-04-20] MEDS: Chlorhexidine Rinse 15 ML MOUTHWASH MM SCH ×2 (07:31→20:38)
[2017-04-20] MEDS: Multivit/Ca/Min/Fe/FA 1 TAB TABLET PO SCH (07:31)
[2017-04-20] MEDS: Furosemide 40 MG/4 ML VIAL IVP SCH ×2 (07:31→18:24)
[2017-04-20] MEDS: amLODIPine 5 MG TABLET PO SCH (07:32)
[2017-04-20] MEDS: Aspirin 81 MG TAB.CHEW PO SCH (07:32)
[2017-04-20] MEDS: Folic Acid 1 MG TABLET PO SCH (07:33)
[2017-04-20 08:28] LABS: ABG Base Excess 2 mEq/L (-2 to 3); ABG HCO3 26 mEq/L (21-27); ABG Oxygen Saturation 97 % (95-98); ABG PCO2 36 mmHg (35-45); ABG PH 7.46 pH Units (7.32-7.45); ABG PO2 86 mmHg (85-104); ABG TCO2 27 mEq/L (20-26); Blood Gas Modality ASSIST CONTROL; Blood Gas PEEP 5 cm H2O; Blood Gas Respiration Rate 12; Blood Gas VT 500 cc
--- NOTE | 2017-04-20 08:58 | Pulmonology Progress Note ---
<MaryBrigidHeribertoPolo - Last Filed: 04/20/17 11:16> Date of Encounter: 04/20/17 Time of Encounter: 08:45 Assessment and Plan (1) Acute respiratory failure Current Visit: Yes Status: Acute - Significant respiratory distress with accessory muscle use despite of being on BiPAP and eventually intubated on 04/18/17. - Likely secondary to pulmonary edema related to IV hydration (for C. difficle diarrhea) in the setting of severe systolic CHF. - Patient's baseline anxiety/agitaton likely also contribute to his respiratory distress. Resume patient's home dose Klonopin. - Currently intubated and on ventilation support. . - Continue current diuresis regimen for CHF and bronchodilators for COPD. - Continue close monitoring in ICU. Qualifiers: Respiratory failure complication: unspecified whether with hypoxia or hypercapnia Qualified Code(s): J96.00 - Acute respiratory failure, unspecified whether with hypoxia or hypercapnia (2) Pneumonia Current Visit: Yes Status: Acute - CXR this morning found worsening right basilar airspace disease suspicious for pneumonia. - Will obtain sputum culture. - Start IV vancomycin and Zosyn. Qualifiers: Pneumonia type: due to unspecified organism Laterality: right Lung location: lower lobe of lung Qualified Code(s): J18.1 - Lobar pneumonia, unspecified organism (3) Non-ST elevation ME (NSTEMI) Current Visit: Yes Status: Acute - Initial troponin at 13.10 on 04/14/17, later peaked at 48.79 on 04/15/17 then downtrended to 12.69 on 04/17/17 - LHC on 04/14/17: Severe 1-V CAD S/P CABG 1 of 4 patent bypass grafts with LVEF 60%, a RANDEE placed in the the proximal Circ. - Echo on 04/15/17: LVEF 60% with mild left ventricular diastolic dysfunction. - Troponin elevated to 24.39 on 04/18/17. - LHC on 04/18/17: evere 3-V CAD S/P CABG 1 of 4 patent bypass grafts, a previous stent in 2nd Marginal with severe in-stent stenosis, and a RANDEE placement in the distal Circ. - Echo on 04/18/17: LVE 15-20% with severe global LV systolic dysfunction, which appears since prior study. - Continue aspirin, Plavix, Lopressor, Lipitor and Imdur. - Per cardiology, poor prognosis and patient may benefit from palliative care consult. Appreciate cardiology input. (4) JOHN (acute kidney injury) Current Visit: Yes Status: Acute - SCr 2.02 / eGFR 32 on 04/19/17. - Likely secondary to contrast use in the setting of diuresis. - Stable as SCr 1.90 / eGFR 35 today. - Avoid nephrotoxin. - Continue to monitor renal function and electrolytes closely. (5) Systolic CHF Current Visit: Yes Status: Acute - Echo on 04/18/17: LVE 15-20% with severe global LV systolic dysfunction, which appears since prior study. - Continue Lasix 40 mg IV BID. Will give extra one dose of Lasix 40 mg IV given elevated BNP 1785 - Net -869 mL so far. - Strict I/O and daily weight. Qualifiers: Congestive heart failure chronicity: acute Qualified Code(s): I50.21 - Acute systolic (congestive) heart failure (6) Coronary artery disease Current Visit: Yes Status: Chronic - Severe CAD s/p CABG in 2008. - Continue aspirin, Plavix, Lopressor, Imdur and Lipitor. Qualifiers: Coronary Disease-Associated Artery/Lesion type: bypass graft [place] vs. transplanted heart: [place] heart Associated angina: with unstable angina Qualified Code(s): I25.700 - Atherosclerosis of coronary artery bypass graft(s) , unspecified, with unstable angina pectoris (7) C. difficile diarrhea Current Visit: Yes Status: Acute - Positive stool C. difficile toxin gene PCR on 04/16/17. - Continue metronidazole (since 04/16/17). (8) Hypertension Current Visit: Yes Status: Chronic - Continue metoprolol. Qualifiers: Hypertension type: essential hypertension Qualified Code(s): I10 - Essential (primary) hypertension (9) Hypothyroidism Current Visit: Yes Status: Chronic - Continue Synthroid. Qualifiers: Hypothyroidism type: acquired Qualified Code(s): E03.9 - Hypothyroidism, unspecified (10) Dementia Current Visit: Yes Status: Chronic - Continue memantine Qualifiers: Dementia type: Alzheimer's disease Alzheimer's disease onset: early-onset Dementia behavioral disturbance: without behavioral disturbance Qualified Code(s): G30.0 - Alzheimer's disease with early onset; F02.80 - Dementia in other diseases classified elsewhere without behavioral disturbance; F02.80 - Dementia in other diseases classified elsewhere without behavioral disturbance; F02.80 - Dementia in other diseases classified elsewhere without behavioral disturbance (11) Peripheral vascular disease Current Visit: Yes Status: Chronic (12) DVT prophylaxis Current Visit: Yes Status: Acute - Continue SQ heparin. GI prophylaxis: Protonix IV. Subjective Principal diagnosis: NSTEMI Interval history: Patient was seen and examined this morning. Patient is still sedated and intubated. No family member at bedside. Portal CXR at bedside this morning suggests right basilar pneumonia. Objective PUL Vital signs: Last Vital Signs Temp 101.2 F H 04/20/17 08:26 Pulse 98 04/20/17 08:00 Resp 17 04/20/17 08:14 BP 109/80 04/20/17 08:00 Pulse Ox 100 04/20/17 08:14 General appearance: no acute distress, comatose (sedated) Eyes: nonicteric ENT: other (Intubated) Neck: supple Effort: normal Auscultation: left: clear, right: rales (Some right basilar crackles) Cardiovascular: regular rate and rhythm Gastrointestinal: normoactive bowel sounds, soft Integumentary: normal Extremities: no cyanosis, no edema Musculoskeletal: no deformities unable to assess due to mental status Ventilator Settings Ventilator Settings: Ventilator Settings, Last 8 Hours Ventilator Mode VC+ Ventilator Mode VC+ Ventilator Mode VC+ Ventilator Mode CPAP Ventilator Mode CPAP Ventilator Mode CPAP Ventilator Mode VC+ Ventilator Mode VC+ Ventilator Mode VC+ Ventilator Mode VC+ Ventilator Mode VC+ Ventilator Mode VC+ Ventilator Mode VC+ Ventilator Mode VC+ Ventilator Tidal Volume 500 Setting Ventilator Tidal Volume 500 Setting Ventilator Tidal Volume 500 Setting Ventilator Tidal Volume 500 Setting Ventilator Tidal Volume 500 Setting Ventilator Tidal Volume 500 Setting Ventilator Tidal Volume 500 Setting Ventilator Tidal Volume 500 Setting Ventilator Tidal Volume 500 Setting Ventilator Tidal Volume 500 Setting Ventilator Tidal Volume 500 Setting Ventilator Tidal Volume 500 Setting Ventilator Respiratory Rate 12 Setting Ventilator Respiratory Rate 12 Setting Ventilator Respiratory Rate 12 Setting Ventilator Respiratory Rate 12 Setting Ventilator Respiratory Rate 12 Setting Ventilator Respiratory Rate 12 Setting Ventilator Respiratory Rate 12 Setting Ventilator Respiratory Rate 12 Setting Ventilator Respiratory Rate 12 Setting Ventilator Respiratory Rate 12 Setting Ventilator Respiratory Rate 12 Setting Ventilator Respiratory Rate 12 Setting Actual Respiratory Rate 17 Actual Respiratory Rate 26 Actual Respiratory Rate 34 Actual Respiratory Rate 25 Actual Respiratory Rate 27 Actual Respiratory Rate 31 Actual Respiratory Rate 26 Actual Respiratory Rate 22 Actual Respiratory Rate 16 Actual Respiratory Rate 22 Actual Respiratory Rate 21 Actual Respiratory Rate 20 Actual Respiratory Rate 20 Positive End Expiratory 5 Pressure Positive End Expiratory 5 Pressure Positive End Expiratory 5 Pressure Positive End Expiratory 5 Pressure Positive End Expiratory 5 Pressure Positive End Expiratory 5 Pressure Positive End Expiratory 5 Pressure Positive End Expiratory 5 Pressure Positive End Expiratory 5 Pressure Positive End Expiratory 5 Pressure Positive End Expiratory 5 Pressure Positive End Expiratory 5 Pressure Positive End Expiratory 5 Pressure Positive End Expiratory 5 Pressure Peak Inspiratory Airway 15 Pressure Peak Inspiratory Airway 15 Pressure Peak Inspiratory Airway 12 Pressure Peak Inspiratory Airway 11 Pressure Peak Inspiratory Airway 11 Pressure Peak Inspiratory Airway 12 Pressure Peak Inspiratory Airway 12 Pressure Peak Inspiratory Airway 12 Pressure Peak Inspiratory Airway 12 Pressure Peak Inspiratory Airway 14 Pressure Peak Inspiratory Airway 11 Pressure Peak Inspiratory Airway 11 Pressure Peak Inspiratory Airway 11 Pressure Results - Laboratory Findings CBC and BMP: 04/20/17 02:42 04/20/17 02:42 ABG ABG pH 7.46 pH Units (7.32-7.45) H 04/20/17 08:26 ABG pCO2 36 mmHg (35-45) 04/20/17 08:26 ABG pO2 86 mmHg (85-104) 04/20/17 08:26 ABG O2 Saturation 97 % (95-98) 04/20/17 08:26 PT/INR, D-dimer PT 12.8 Seconds (9.4-12.1) H 04/14/17 19:53 Abnormal lab findings: Abnormal lab results RBC 3.70 M/mcL (4.19-5.50) L 04/20/17 02:42 Hgb 11.8 g/dL (12.9-16.9) L 04/20/17 02:42 Hct 35.4 % (37.5-50.1) L 04/20/17 02:42 PT 12.8 Seconds (9.4-12.1) H 04/14/17 19:53 ABG pH 7.46 pH Units (7.32-7.45) H 04/20/17 08:26 ABG Total CO2 27 mEq/L (20-26) H 04/20/17 08:26 Potassium 4.6 mEq/L (3.5-4.5) H 04/20/17 02:42 BUN 61 mg/dL (8-26) H D 04/20/17 02:42 Creatinine 1.90 mg/dL (0.72-1.25) H 04/20/17 02:42 Est GFR ( Amer) 42 (> 60) L 04/20/17 02:42 Est GFR (Non-Af Amer) 35 (> 60) L 04/20/17 02:42 BUN/Creatinine Ratio 32 (6-26) H 04/20/17 02:42 Glucose 193 mg/dL (70-99) H 04/20/17 02:42 POC Glucose 163 (58-89) H 04/19/17 23:31 Calculated Osmolality 315 (280-300) H 04/20/17 02:42 Calcium 8.5 mg/dL (8.6-10.8) L 04/20/17 02:42 Troponin I 24.39 ng/mL (0-0.03) H* 04/18/17 09:42 B-Natriuretic Peptide 1785 pg/mL (0-100) H 04/20/17 02:42 Triglycerides 154 mg/dL (< 150) H 04/15/17 02:28 VLDL Cholesterol, Calc 31 mg/dL (< 31) H 04/15/17 02:28 HDL Cholesterol 31 mg/dL (40-59) L 04/15/17 02:28 Vitamin B12 180 pg/mL (213-816) L 04/17/17 10:48 Prolactin 49.22 ng/mL (3.46-19.40) H 04/16/17 09:42 Ur Specific [place] >= 1.099 (1.010-1.025) H 04/18/17 16:12 Urine Blood Large (Negative) H 04/18/17 16:12 Urine Microscopic RBC 5-15 per hpf (0-3) H 04/18/17 16:12 Urine Microscopic WBC 3-5 per hpf (0-3) H 04/18/17 16:12 - Microbiology Findings Microbiology Findings: Microbiology, Last 48 Hours 04/16/17 09:42 Blood Culture - Preliminary Peripheral Venipuncture No growth. 04/16/17 09:42 Blood Culture - Preliminary Peripheral Venipuncture No growth. 04/16/17 16:35 Urine Culture - Final Urine,Clean Catch No growth. - Diagnostic Findings Chest x-ray: report reviewed, image reviewed - Clinical Findings Intake & Output: Intake & Output 04/19/17 04/20/17 04/20/17 23:59 07:59 15:59 Intake Total 1166 / 1166 753 / 753 0 / 0 Output Total 850 / 850 150 / 150 200 / 200 Balance 316 / 316 603 / 603 -200 / -200 Weight 86 kg - VTE Documentation of Mechanical Device: Graduated compression elastic hosiery Consult Discharge Plan - Plan Referrals: matt, Cardiology [Other] (Office will call patient at home with follow up appointment) Minh Pierce MD [Primary Care Provider] - 04/23/17 11:30 am <Blayne Chirinos - Last Filed: 04/20/17 12:52> Date of Encounter: 04/20/17 Objective PUL Vital signs: Last Vital Signs Temp 100.1 F H 04/20/17 11:00 Pulse 92 04/20/17 12:00 Resp 17 04/20/17 12:00 BP 106/74 04/20/17 12:00 Pulse Ox 100 04/20/17 11:00 Ventilator Settings Ventilator Settings: Ventilator Settings, Last 8 Hours Ventilator Mode VC+ Ventilator Mode VC+ Ventilator Mode VC+ Ventilator Mode VC+ Ventilator Mode VC+ Ventilator Mode VC+ Ventilator Mode VC+ Ventilator Mode VC+ Ventilator Mode VC+ Ventilator Mode CPAP Ventilator Mode CPAP Ventilator Mode CPAP Ventilator Mode VC+ Ventilator Mode VC+ Ventilator Tidal Volume 500 Setting Ventilator Tidal Volume 500 Setting Ventilator Tidal Volume 500 Setting Ventilator Tidal Volume 500 Setting Ventilator Tidal Volume 500 Setting Ventilator Tidal Volume 500 Setting Ventilator Tidal Volume 500 Setting Ventilator Tidal Volume 500 Setting Ventilator Tidal Volume 500 Setting Ventilator Tidal Volume 500 Setting Ventilator Tidal Volume 500 Setting Ventilator Tidal Volume 500 Setting Ventilator Respiratory Rate 12 Setting Ventilator Respiratory Rate 12 Setting Ventilator Respiratory Rate 12 Setting Ventilator Respiratory Rate 12 Setting Ventilator Respiratory Rate 12 Setting Ventilator Respiratory Rate 12 Setting Ventilator Respiratory Rate 12 Setting Ventilator Respiratory Rate 12 Setting Ventilator Respiratory Rate 12 Setting Ventilator Respiratory Rate 12 Setting Ventilator Respiratory Rate 12 Setting Ventilator Respiratory Rate 12 Setting Actual Respiratory Rate 17 Actual Respiratory Rate 18 Actual Respiratory Rate 17 Actual Respiratory Rate 22 Actual Respiratory Rate 22 Actual Respiratory Rate 22 Actual Respiratory Rate 17 Actual Respiratory Rate 26 Actual Respiratory Rate 34 Actual Respiratory Rate 25 Actual Respiratory Rate 27 Actual Respiratory Rate 31 Actual Respiratory Rate 26 Positive End Expiratory 5 Pressure Positive End Expiratory 5 Pressure Positive End Expiratory 5 Pressure Positive End Expiratory 5 Pressure Positive End Expiratory 5 Pressure Positive End Expiratory 5 Pressure Positive End Expiratory 5 Pressure Positive End Expiratory 5 Pressure Positive End Expiratory 5 Pressure Positive End Expiratory 5 Pressure Positive End Expiratory 5 Pressure Positive End Expiratory 5 Pressure Positive End Expiratory 5 Pressure Positive End Expiratory 5 Pressure Peak Inspiratory Airway 18 Pressure Peak Inspiratory Airway 21 Pressure Peak Inspiratory Airway 25 Pressure Peak Inspiratory Airway 11 Pressure Peak Inspiratory Airway 11 Pressure Peak Inspiratory Airway 11 Pressure Peak Inspiratory Airway 15 Pressure Peak Inspiratory Airway 15 Pressure Peak Inspiratory Airway 12 Pressure Peak Inspiratory Airway 11 Pressure Peak Inspiratory Airway 11 Pressure Peak Inspiratory Airway 12 Pressure Peak Inspiratory Airway 12 Pressure Results - Laboratory Findings CBC and BMP: 04/20/17 02:42 04/20/17 02:42 ABG ABG pH 7.46 pH Units (7.32-7.45) H 04/20/17 08:26 ABG pCO2 36 mmHg (35-45) 04/20/17 08:26 ABG pO2 86 mmHg (85-104) 04/20/17 08:26 ABG O2 Saturation 97 % (95-98) 04/20/17 08:26 PT/INR, D-dimer PT 12.8 Seconds (9.4-12.1) H 04/14/17 19:53 Abnormal lab findings: Abnormal lab results RBC 3.70 M/mcL (4.19-5.50) L 04/20/17 02:42 Hgb 11.8 g/dL (12.9-16.9) L 04/20/17 02:42 Hct 35.4 % (37.5-50.1) L 04/20/17 02:42 PT 12.8 Seconds (9.4-12.1) H 04/14/17 19:53 ABG pH 7.46 pH Units (7.32-7.45) H 04/20/17 08:26 ABG Total CO2 27 mEq/L (20-26) H 04/20/17 08:26 Potassium 4.6 mEq/L (3.5-4.5) H 04/20/17 02:42 BUN 61 mg/dL (8-26) H D 04/20/17 02:42 Creatinine 1.90 mg/dL (0.72-1.25) H 04/20/17 02:42 Est GFR ( Amer) 42 (> 60) L 04/20/17 02:42 Est GFR (Non-Af Amer) 35 (> 60) L 04/20/17 02:42 BUN/Creatinine Ratio 32 (6-26) H 04/20/17 02:42 Glucose 193 mg/dL (70-99) H 04/20/17 02:42 POC Glucose 273 (58-89) H 04/20/17 11:41 Calculated Osmolality 315 (280-300) H 04/20/17 02:42 Calcium 8.5 mg/dL (8.6-10.8) L 04/20/17 02:42 Troponin I 24.39 ng/mL (0-0.03) H* 04/18/17 09:42 B-Natriuretic Peptide 1785 pg/mL (0-100) H 04/20/17 02:42 Triglycerides 154 mg/dL (< 150) H 04/15/17 02:28 VLDL Cholesterol, Calc 31 mg/dL (< 31) H 04/15/17 02:28 HDL Cholesterol 31 mg/dL (40-59) L 04/15/17 02:28 Vitamin B12 180 pg/mL (213-816) L 04/17/17 10:48 Prolactin 49.22 ng/mL (3.46-19.40) H 04/16/17 09:42 Ur Specific [place] >= 1.099 (1.010-1.025) H 04/18/17 16:12 Urine Blood Large (Negative) H 04/18/17 16:12 Urine Microscopic RBC 5-15 per hpf (0-3) H 04/18/17 16:12 Urine Microscopic WBC 3-5 per hpf (0-3) H 04/18/17 16:12 - Clinical Findings Intake & Output: Intake & Output 04/19/17 04/20/17 04/20/17 23:59 07:59 15:59 Intake Total 1166 / 1166 753 / 753 681 / 681 Output Total 850 / 850 150 / 150 900 / 900 Balance 316 / 316 603 / 603 -219 / -219 Weight 86 kg - Attending Attestation I examined this patient and my medical decision-making was reviewed with the Resident Physician. I agree with the documented findings, disposition and treatment plan as described except to the extent set forth below. Patient seen and examined. Labs, radiology, chart personally reviewed. Agree with resident's history and physical, assessment, plan with following comments: BELL STAFF: Patient does not follows commands, patient sedated mainly for the vent synchrony Pulmonary: Patient failed his spontaneous breathing trial and I suspect this is primarily from his underlying ischemic cardiomyopathy and continued diuresis as much as possible and I am also considering about this x-ray finding which I reviewed it personally and possibility of a hospital by her pneumonia which could be pulmonary edema, however with fever that concerned me and broad- spectrum antibiotics were started. Cardiovascular: Discussed with cardiology team. GI: Nutrition per dietary and GI prophylaxis per routine Heme: DVT prophylaxis per routine ID: Continue antibiotics and plan to de-escalation Renal; urine out put and renal funtion reviewed Endorcine: blood glucose is monitored Lines: all lines checked and no evidence of infections Skin: skin care to prevent pressure ulcers per nursing routine care I am very concerned about this patient's prognosis and awaiting for family member to discuss prognosis and cardiology team to follow up with his family as well. I spent 35 min of Critical Care time with this patient. It involved decision making of high complexity to assess, manipulate, and support vital organ system failure and/or to prevent further life threatening deterioration of the patient' s condition. The time involved in the performance of separately reportable procedures was not counted toward critical care time.
[2017-04-20] MEDS ORDERED: Vancomycin 1,250 MG in D5% in Water 250 ML IVPB SCH (09:00)
[2017-04-20] MEDS: Vancomycin 1,000 MG in D5% in Water 250 ML IVPB SCH (09:38)
[2017-04-20] MEDS: Piperacillin/Tazobactam 3.375 GM/200 ML BAG IVPB SCH ×3 (09:42→23:29)
--- NOTE | 2017-04-20 09:49 | Cardiology Progress Note ---
Date of Encounter: 04/20/17 Time of Encounter: 09:00 Assessment and Plan (1) Acute respiratory failure Current Visit: Yes Status: Acute Per Cardiology: Remains on Vent managed by Pulm. Now on antibiotics for pneumonia. Currently sedated with Precedex and Fentanyl. Per pulm, no plans to extubate today. Qualifiers: Respiratory failure complication: unspecified whether with hypoxia or hypercapnia Qualified Code(s): J96.00 - Acute respiratory failure, unspecified whether with hypoxia or hypercapnia (2) Non-ST elevation TN (NSTEMI) Current Visit: Yes Status: Acute Per cardiology: NSTEMI with peak troponin 48.79, then downward trend. Initial LHC with 100% LAD stenosis, WRIGHT to LAD patent, 80% proximal circumflex stenosis with RANDEE placed , 100% Proximal RCA, SVG to OM occluded, SVG to circumflex occluded, SVG to RCA occluded. Seen again for flash pulmonary edema/intubated. Troponin increased back up to 24.32. Repeat LHC: S/P CABG 1 of 4 patent bypass grafts, previous stent in 2nd Marginal with severe in-stent stenosis that was not intervened on. Patient had successful Drug-Eluting Stent placement in the distal Circ. On asa, statin, beta corrie, imdur, and plavix. (3) Cardiomyopathy Current Visit: Yes Status: Acute Per Cardiology: EF 60% on echo April 15, 2017, 80% on echo April 16, 2017, and 15-20% April 18, 2017. BNP = 1785. Back on IV Lasix 40mg BID. Net I&O ~ -870ml. CXR today: IMPRESSION: Similar appearing pulmonary interstitial edema, with worsening right basilar airspace disease suspicious for worsening pneumonia. Minimal left basilar atelectasis. Qualifiers: Cardiomyopathy type: ischemic Qualified Code(s): I25.5 - Ischemic cardiomyopathy (4) JOHN (acute kidney injury) Current Visit: Yes Status: Acute Per Cardiology: S/p 2 LHC and diuresis. Creat was normal, then up to 2.02, slightly improved today. Consider Nephrology c/s. (5) Dementia Current Visit: Yes Status: Chronic Per Cardiology: Underlying dementia. Currently sedated and intubated. Per RN, "girlfriend is his legal POA". Reportedly visiting today. Will attempt to discuss cardiology prognosis. May consider palliative care consult. Qualifiers: Dementia type: Alzheimer's disease Alzheimer's disease onset: early-onset Dementia behavioral disturbance: without behavioral disturbance Qualified Code(s): G30.0 - Alzheimer's disease with early onset; F02.80 - Dementia in other diseases classified elsewhere without behavioral disturbance; F02.80 - Dementia in other diseases classified elsewhere without behavioral disturbance; F02.80 - Dementia in other diseases classified elsewhere without behavioral disturbance Discussion w patient/family: Thank you for involving us in the care of your patient. Please call with any questions. Subjective Principal diagnosis: NSTEMI Interval history: Patient seen today and remains sedated and intubated. On Precedex and Fentanyl. . No family at bedside. + Bilateral hand grasps to verbal commands and movement of bilateral toes to commands. Objective Vital Signs, Last 4 Hours Temp Pulse Resp BP Pulse Ox 04/20/17 08:26 101.2 F H 04/20/17 08:14 17 100 04/20/17 08:00 98 26 109/80 100 04/20/17 07:30 121 34 132/93 97 04/20/17 06:01 25 120/82 98 04/20/17 06:00 107 26 120/82 98 HEENT: Atraumatic, Normocephaly Cardiac: Reg Rate and Rhythm, Normal S1 and S2, No Murmur Lungs: Normal Breath Sounds, No Wheeze, Rales, Rhonchi, Other (clear anteriorly , intubated) Neuro: Other (sedated, +bilateral hand grasps and movement of feet bilaterally to verbal commands) Skin: No rashes noted on visualized skin Extremities: No Edema, Other (Bilateral DP and PT pulses dopplable) Results 04/20/17 02:42 04/20/17 02:42 Lab Results Laboratory Tests 04/20/17 04/20/17 02:42 02:42 Creatinine 1.90 H Est GFR (Non-Af Amer) 35 L Magnesium 2.0 B-Natriuretic Peptide 1785 H Impressions Chest X-Ray 04/20/17 07:52 IMPRESSION: Similar appearing pulmonary interstitial edema, with worsening right basilar airspace disease suspicious for worsening pneumonia. Minimal left basilar atelectasis. D/ / Ken Barbour MD / Ken Barbour MD Interpreting Provider: Ken Barbour MD Intake & Output 04/17/17 04/18/17 04/19/17 04/20/17 23:59 23:59 23:59 23:59 Intake Total 360 / 360 250 / 250 2096 / 2096 853 / 853 Output Total 650 / 650 875 / 875 1700 / 1700 350 / 350 Balance -290 / -290 -625 / -625 396 / 396 503 / 503 Weight 86.5 kg 86 kg Active Medications Acetaminophen (Tylenol Susp) 650 mg GTUBE Q6HR PRN PRN Reason: fever GREATER than 101.2 F Stop: 10/20/17 08:17 Albuterol Sulfate (Proventil Neb) 2.5 mg IH Q2H PRN PRN Reason: Shortness Of Breath/Wheezing Stop: 10/14/17 20:44 Last Admin: 04/18/17 01:43 Dose: 2.5 mg Albuterol/Ipratropium (Duoneb) 3 ml IH [id number] PRN PRN Reason: Shortness Of Breath/WHEEZE Stop: 10/15/17 04:14 Last Admin: 04/19/17 00:01 Dose: 3 ml Amlodipine Besylate (Norvasc) 5 mg PO DAILY MANDIE PRN Reason: Protocol Stop: 10/15/17 16:31 Last Admin: 04/20/17 07:32 Dose: 5 mg Artificial Tears (Lacri-Lube) 1 appl BOTH EYES Q4HR MANDIE PRN Reason: Protocol Stop: 10/18/17 08:01 Last Admin: 04/20/17 09:42 Dose: Not Given Artificial Tears (Lacri-Lube) 1 appl BOTH EYES Q2HR PRN; Protocol PRN Reason: Dry Eyes Stop: 10/18/17 07:47 Aspirin (Aspirin) 81 mg PO DAILY MANDIE Stop: 10/18/17 09:01 Last Admin: 04/20/17 07:32 Dose: 81 mg Atorvastatin Calcium (Lipitor) 40 mg PO HS MANDIE Stop: 10/15/17 21:01 Last Admin: 04/19/17 20:24 Dose: 40 mg Chlorhexidine Gluconate (Chlorhexidine Rinse) 15 ml MM BID MANDIE Stop: 10/18/17 09:01 Last Admin: 04/20/17 07:31 Dose: 15 ml Clonazepam (Klonopin) 0.5 mg PO HS MANDIE Stop: 10/15/17 21:01 Last Admin: 04/19/17 20:24 Dose: 0.5 mg Clopidogrel Bisulfate (Plavix) 75 mg PO DAILY MANDIE Stop: 10/15/17 09:01 Last Admin: 04/20/17 07:34 Dose: 75 mg Dextrose/Water (Dextrose 50% (Syg)) 25 ml IVP AD PRN PRN Reason: Hypoglycemia Stop: 10/18/17 10:20 Fluticasone Propionate (Flonase) 100 mcg NS DAILY MANDIE PRN Reason: Protocol Stop: 10/15/17 09:01 Last Admin: 04/19/17 09:41 Dose: Not Given Folic Acid (Folic Acid) 1 mg PO DAILY MANDIE Stop: 10/17/17 14:01 Last Admin: 04/20/17 07:33 Dose: 1 mg Furosemide (Lasix) 40 mg IVP BIDDIURETIC MANDIE Stop: 10/19/17 18:01 Last Admin: 04/20/17 07:31 Dose: 40 mg Glucagon (Glucagen) 1 mg IM ONCE PRN PRN Reason: Hypoglycemia Stop: 10/18/17 10:20 Glucose (Gluctose) 15 gm PO ONCE PRN PRN Reason: Hypoglycemia Stop: 10/18/17 10:20 Glucose (Gluctose) 30 gm PO ONCE PRN PRN Reason: Hypoglycemia Stop: 10/18/17 10:20 Heparin Sodium (Porcine) (Heparin) 5,000 unit SQ Q8HCO MANDIE Stop: 10/19/17 14:16 Last Admin: 04/20/17 05:45 Dose: 5,000 unit Dexmedetomidine HCl (Precedex Premix) 400 mcg in 100 mls @ 4.325 mls/hr IVC .Q23H8M MANDIE; 0.2 MCG/KG/HR PRN Reason: Protocol Stop: 10/18/17 07:46 Last Admin: 04/20/17 09:34 Dose: 0.7 mcg/kg/hr, 15.138 mls/hr Fentanyl Citrate 1,000 mcg/ (Sodium Chloride) 100 mls @ 5 mls/hr IVC CONT MANDIE; 50 MCG/HR PRN Reason: Protocol Stop: 10/18/17 07:46 Last Titration: 04/20/17 09:35 Dose: 150 mcg/hr, 15 mls/hr Dextrose (Dextrose 5%) 1,000 mls @ 100 mls/hr IVC .Q10H PRN PRN Reason: HYPOGLYCEMIA Stop: 10/18/17 10:20 Piperacillin Sod/Tazobactam Sod (Zosyn Premix 3.375 Gm/200 Ml) 3.375 gm in 200 mls @ 50 mls/hr IVPB Q8HR [facility] Stop: 10/20/17 08:15 Last Admin: 04/20/17 09:42 Dose: 50 mls/hr Vancomycin HCl 1,000 mg/ (Dextrose) 250 mls @ 167 mls/hr IVPB Q24H MANDIE PRN Reason: Protocol Stop: 10/20/17 10:01 Last Admin: 04/20/17 09:38 Dose: 167 mls/hr Insulin Human Lispro (Humalog) 0 units SQ Q6HR MANDIE PRN Reason: Protocol Stop: 10/18/17 12:01 Last Admin: 04/20/17 05:46 Dose: 6 units Isosorbide Mononitrate (Imdur) 60 mg PO DAILY [facility] Stop: 10/15/17 09:01 Last Admin: 04/20/17 07:31 Dose: 60 mg Levalbuterol HCl (Xopenex) 1.25 mg IH QIDR [facility] Stop: 10/18/17 05:01 Last Admin: 04/20/17 04:00 Dose: 1.25 mg Levothyroxine Sodium (Synthroid) 75 mcg PO 0630 [facility] Stop: 10/15/17 06:31 Last Admin: 04/20/17 05:45 Dose: 75 mcg Memantine (Namenda) 10 mg PO BID [facility] Stop: 10/15/17 09:01 Last Admin: 04/20/17 07:33 Dose: 10 mg Metoprolol Tartrate (Lopressor) 25 mg PO BID [facility] Stop: 10/18/17 21:01 Last Admin: 04/20/17 07:32 Dose: 25 mg Metronidazole (Flagyl) 500 mg PO Q8H MANDIE PRN Reason: Protocol Stop: 10/16/17 20:01 Last Admin: 04/20/17 03:24 Dose: 500 mg Midazolam HCl (Versed) 2 mg IVP Q5MIN PRN PRN Reason: Anxiety Stop: 10/18/17 08:02 Last Admin: 04/18/17 08:06 Dose: 2 mg Mirtazapine (Remeron) 30 mg PO HS [facility] Stop: 10/15/17 21:01 Last Admin: 04/19/17 20:24 Dose: 30 mg Montelukast Sodium (Singulair) 10 mg PO DAILY MANDIE Stop: 10/15/17 09:01 Last Admin: 04/20/17 07:33 Dose: 10 mg Multivitamins/Calcium (Thera M Plus) 1 tab PO DAILY MANDIE Stop: 10/15/17 09:01 Last Admin: 04/20/17 07:31 Dose: 1 tab Naloxone HCl (Narcan) 0.4 mg IVP Q2MIN PRN PRN Reason: Opioid Reversal Stop: 10/14/17 20:07 Last Admin: 04/16/17 09:40 Dose: 0.4 mg Nitroglycerin (Nitroglycerin) 0.4 mg SL Q5M PRN PRN Reason: Chest Pain Stop: 10/15/17 04:14 Last Admin: 04/17/17 17:57 Dose: 0.4 mg Nitroglycerin (Nitroglycerin) 1 inch TP Q6HNTG [facility] Stop: 10/17/17 17:46 Last Admin: 04/20/17 05:51 Dose: Not Given Ondansetron HCl (Zofran) 4 mg IVP Q8HR PRN PRN Reason: Nausea And Vomiting Stop: 10/14/17 20:07 Oxycodone/Acetaminophen (Percocet 10/325) 1 each PO Q6H PRN PRN Reason: Mild Pain Stop: 10/15/17 08:03 Last Admin: 04/18/17 00:03 Dose: 1 each Pantoprazole Sodium (Protonix) 40 mg IVP DAILY [facility] Stop: 10/18/17 09:01 Last Admin: 04/20/17 07:31 Dose: 40 mg Trazodone HCl (Trazodone) 100 mg PO HS [facility] Stop: 10/15/17 21:01 Last Admin: 04/19/17 20:24 Dose: 100 mg - Imaging and Cardiology Echo: report reviewed Cardiac cath: report reviewed - EKG Interpretation EKG results cardiology: other (SR on tele) - VTE Documentation of Mechanical Device: Graduated compression elastic hosiery Consult Discharge Plan - Plan Referrals: matt, Cardiology [Other] (Office will call patient at home with follow up appointment) Minh Pierce MD [Primary Care Provider] - 04/23/17 11:30 am
[2017-04-20] MEDS ORDERED: Furosemide 40 MG/4 ML VIAL IVP ONE (11:20)
[2017-04-20] MEDS: Fluticasone Propionate Nasal 50 MCG/SPRAY BOTTLE NS SCH (14:23)
[2017-04-20] MEDS: clonazePAM 0.5 MG TABLET PO SCH (20:38)
[2017-04-20] MEDS: Mirtazapine 15 MG TABLET PO SCH (20:39)
[2017-04-20] MEDS: traZODone 50 MG TABLET PO SCH (20:39)
[2017-04-21] MEDS: Dexmedetomidine HCl 400 MCG/100 ML MLS IVC SCH ×4 (01:18→23:30)
[2017-04-21] MEDS: FentaNYL (PF) 3,000 MCG in 0.9 % Sodium Chloride 240 ML IVC SCH (02:55)
[2017-04-21] MEDS: Lacri-Lube 3.5 GM TUBE BOTH EYES SCH ×6 (03:17→23:16)
[2017-04-21] MEDS: metroNIDAZOLE 500 MG TABLET PO SCH ×3 (03:19→20:06)
[2017-04-21 04:12] LABS: ABG Base Excess 6 mEq/L (-2 to 3); ABG HCO3 31 mEq/L (21-27); ABG Oxygen Saturation 95 % (95-98); ABG PCO2 47 mmHg (35-45); ABG PH 7.43 pH Units (7.32-7.45); ABG PO2 75 mmHg (85-104); ABG TCO2 32 mEq/L (20-26); Blood Gas Modality VC; Blood Gas PEEP 5 cm H2O; Blood Gas Respiration Rate 12; Blood Gas VT 500 cc
[2017-04-21] MEDS: Levalbuterol Neb 1.25 MG/3 ML IH SCH ×4 (05:19→22:59)
[2017-04-21] MEDS: *HR* Heparin 5,000 UNIT/ML VIAL SQ SCH ×3 (06:09→20:06)
[2017-04-21] MEDS: Insulin LISPRO 300 UNITS/3 ML VIAL SQ SCH ×4 (06:10→23:19)
[2017-04-21 06:20] LABS: Calcium 8.5 mg/dL (8.6-10.8); Magnesium 1.9 mg/dL (1.6-2.6); Phosphorous 2.5 mg/dL (2.3-4.7); Potassium 3.8 mEq/L (3.5-4.5)
[2017-04-21 06:35] LABS: Basophils % 0.2 %; Eosinophils # 0.1 K/mcL (0.0-0.6); Eosinophils % 0.6 %; Hematocrit 36.1 % (37.5-50.1); Hemoglobin 11.9 g/dL (12.9-16.9); Immature Granulocytes % 0.4 % (0-4); Mean Platelet Volume 11.6 fL (9.4-12.4); Monocytes # 0.8 K/mcL (0.0-1.3); Monocytes % 7.5 %; Neutrophils # 8.8 K/mcL (1.6-8.9); Platelet Count 154 K/mcL (140-400); Red Blood Count 3.72 M/mcL (4.19-5.50); Red Cell Distribution Width 13.4 % (11.5-14.5); Segmented Neutrophils % 82.3 %
[2017-04-21] MEDS: Furosemide 40 MG/4 ML VIAL IVP SCH ×2 (08:37→17:37)
[2017-04-21] MEDS: Piperacillin/Tazobactam 3.375 GM/200 ML BAG IVPB SCH ×3 (08:37→23:16)
[2017-04-21] MEDS: Aspirin 81 MG TAB.CHEW PO SCH (08:38)
[2017-04-21] MEDS: Chlorhexidine Rinse 15 ML MOUTHWASH MM SCH ×2 (08:38→20:07)
[2017-04-21] MEDS: Folic Acid 1 MG TABLET PO SCH (08:38)
[2017-04-21] MEDS: Isosorbide MONOnitrate (24 HR) 60 MG TAB.ER.24H PO SCH (08:38)
[2017-04-21] MEDS: Multivit/Ca/Min/Fe/FA 1 TAB TABLET PO SCH (08:39)
[2017-04-21] MEDS: Vancomycin 1,000 MG in D5% in Water 250 ML IVPB SCH (08:39)
[2017-04-21] MEDS: amLODIPine 5 MG TABLET PO SCH (08:39)
[2017-04-21] MEDS: Pantoprazole 40 MG VIAL IVP SCH (08:39)
[2017-04-21] MEDS: Fluticasone Propionate Nasal 50 MCG/SPRAY BOTTLE NS SCH (08:40)
--- NOTE | 2017-04-21 08:48 | Pulmonology Progress Note ---
<Norma Nash Alberto - Last Filed: 04/21/17 10:42> Date of Encounter: 04/21/17 Time of Encounter: 09:00 Assessment and Plan (1) Acute respiratory failure Current Visit: Yes Status: Acute - Significant respiratory distress with accessory muscle use despite of being on BiPAP and eventually intubated on 04/18/17. - Likely secondary to pulmonary edema related to IV hydration (for C. difficle diarrhea) in the setting of severe systolic CHF. - Patient's baseline anxiety/agitaton likely also contribute to his respiratory distress. Home dose klonopin. - Currently intubated and on ventilation support. . - Continue current diuresis regimen for CHF and bronchodilators for COPD. - Continue close monitoring in ICU. -Code status changed to CNR CC with patient's family at bedside including daughter and ARTI Dye. Upon further discussions with Dr. Valerio from cardiology and Dr. Jarrett, ICU intensivists, patient will be made comfort care. Palliative to be consulted. Qualifiers: Respiratory failure complication: unspecified whether with hypoxia or hypercapnia Qualified Code(s): J96.00 - Acute respiratory failure, unspecified whether with hypoxia or hypercapnia (2) Pneumonia Current Visit: Yes Status: Acute - CXR 04/20/2017 found worsening right basilar airspace disease suspicious for pneumonia. - FU sputum culture. - IV vancomycin and Zosyn, Day 2 (started 04/20/17). Qualifiers: Pneumonia type: due to unspecified organism Laterality: right Lung location: lower lobe of lung Qualified Code(s): J18.1 - Lobar pneumonia, unspecified organism (3) Non-ST elevation IN (NSTEMI) Current Visit: Yes Status: Acute - Initial troponin at 13.10 on 04/14/17, later peaked at 48.79 on 04/15/17 then downtrended to 12.69 on 04/17/17 - LHC on 04/14/17: Severe 1-V CAD S/P CABG 1 of 4 patent bypass grafts with LVEF 60%, a RANDEE placed in the the proximal Circ. - Echo on 04/15/17: LVEF 60% with mild left ventricular diastolic dysfunction. - Troponin elevated to 24.39 on 04/18/17. - LHC on 04/18/17: evere 3-V CAD S/P CABG 1 of 4 patent bypass grafts, a previous stent in 2nd Marginal with severe in-stent stenosis, and a RANDEE placement in the distal Circ. - Echo on 04/18/17: LVE 15-20% with severe global LV systolic dysfunction, which appears since prior study. - Continue aspirin, Plavix, Lopressor, Lipitor and Imdur. - Per cardiology, poor prognosis and patient may benefit from palliative care consult. Appreciate cardiology input. (4) JOHN (acute kidney injury) Current Visit: Yes Status: Acute - SCr 2.02 / eGFR 32 on 04/19/17. - Likely secondary to contrast use in the setting of diuresis. - Stable as SCr 1.75 / eGFR 38 today. - Avoid nephrotoxin. - Continue to monitor renal function and electrolytes closely. (5) Systolic CHF Current Visit: Yes Status: Acute - Echo on 04/18/17: LVE 15-20% with severe global LV systolic dysfunction, which appears since prior study. - Continue Lasix 40 mg IV BID. Will give extra one dose of Lasix 40 mg IV given elevated BNP 1785 - Net -1434 mL so far. - Strict I/O and daily weight. Qualifiers: Congestive heart failure chronicity: acute Qualified Code(s): I50.21 - Acute systolic (congestive) heart failure (6) Coronary artery disease Current Visit: Yes Status: Chronic - Severe CAD s/p CABG in 2008. - Continue aspirin, Plavix, Lopressor, Imdur and Lipitor. Qualifiers: Coronary Disease-Associated Artery/Lesion type: bypass graft [place] vs. transplanted heart: [place] heart Associated angina: with unstable angina Qualified Code(s): I25.700 - Atherosclerosis of coronary artery bypass graft(s) , unspecified, with unstable angina pectoris (7) C. difficile diarrhea Current Visit: Yes Status: Acute - Positive stool C. difficile toxin gene PCR on 04/16/17. - Continue metronidazole (since 04/16/17). (8) Hypothyroidism Current Visit: Yes Status: Chronic -continue synthroid. Qualifiers: Hypothyroidism type: acquired Qualified Code(s): E03.9 - Hypothyroidism, unspecified (9) Hypertension Current Visit: Yes Status: Chronic -continue metoprolol Qualifiers: Hypertension type: essential hypertension Qualified Code(s): I10 - Essential (primary) hypertension (10) Peripheral vascular disease Current Visit: Yes Status: Chronic (11) Dementia Current Visit: Yes Status: Chronic -continue memantine Qualifiers: Dementia type: Alzheimer's disease Alzheimer's disease onset: early-onset Dementia behavioral disturbance: without behavioral disturbance Qualified Code(s): G30.0 - Alzheimer's disease with early onset; F02.80 - Dementia in other diseases classified elsewhere without behavioral disturbance; F02.80 - Dementia in other diseases classified elsewhere without behavioral disturbance; F02.80 - Dementia in other diseases classified elsewhere without behavioral disturbance (12) DVT prophylaxis Current Visit: Yes Status: Acute -continue SQ heparin GI Prophylaxis- IV Protonix Subjective Principal diagnosis: NSTEMI Interval history: Patient doing well overnight. No acute events. Patient's daughter at bedside. Objective PUL Vital signs: Last Vital Signs Temp 98.8 F 04/21/17 07:40 Pulse 96 04/21/17 06:00 Resp 15 04/21/17 07:40 BP 111/75 04/21/17 06:00 Pulse Ox 96 04/21/17 07:40 General appearance: comatose (Sedated and intubated) Eyes: nonicteric ENT: oropharynx dry Auscultation: bilateral: wheezes (Mild right-sided), rales (Bibasilar) Cardiovascular: regular rate and rhythm Gastrointestinal: normoactive bowel sounds, soft, non-distended Integumentary: normal Extremities: no cyanosis, no edema unable to assess due to mental status Ventilator Settings Ventilator Settings: Ventilator Settings, Last 8 Hours Ventilator Mode VC+ Ventilator Mode VC+ Ventilator Mode VC+ Ventilator Mode VC+ Ventilator Mode VC+ Ventilator Mode VC+ Ventilator Mode VC+ Ventilator Mode VC+ Ventilator Mode VC+ Ventilator Mode VC+ Ventilator Mode VC+ Ventilator Tidal Volume 500 Setting Ventilator Tidal Volume 500 Setting Ventilator Tidal Volume 500 Setting Ventilator Tidal Volume 500 Setting Ventilator Tidal Volume 500 Setting Ventilator Tidal Volume 500 Setting Ventilator Tidal Volume 500 Setting Ventilator Tidal Volume 500 Setting Ventilator Tidal Volume 500 Setting Ventilator Tidal Volume 500 Setting Ventilator Tidal Volume 500 Setting Ventilator Respiratory Rate 12 Setting Ventilator Respiratory Rate 12 Setting Ventilator Respiratory Rate 12 Setting Ventilator Respiratory Rate 12 Setting Ventilator Respiratory Rate 12 Setting Ventilator Respiratory Rate 12 Setting Ventilator Respiratory Rate 12 Setting Ventilator Respiratory Rate 12 Setting Ventilator Respiratory Rate 12 Setting Ventilator Respiratory Rate 12 Setting Ventilator Respiratory Rate 12 Setting Actual Respiratory Rate 16 Actual Respiratory Rate 16 Actual Respiratory Rate 15 Actual Respiratory Rate 15 Actual Respiratory Rate 15 Actual Respiratory Rate 18 Actual Respiratory Rate 15 Actual Respiratory Rate 15 Actual Respiratory Rate 15 Actual Respiratory Rate 16 Positive End Expiratory 5 Pressure Positive End Expiratory 5 Pressure Positive End Expiratory 5 Pressure Positive End Expiratory 5 Pressure Positive End Expiratory 5 Pressure Positive End Expiratory 5 Pressure Positive End Expiratory 5 Pressure Positive End Expiratory 5 Pressure Positive End Expiratory 5 Pressure Positive End Expiratory 5 Pressure Positive End Expiratory 5 Pressure Peak Inspiratory Airway 11 Pressure Peak Inspiratory Airway 11 Pressure Peak Inspiratory Airway 11 Pressure Peak Inspiratory Airway 11 Pressure Peak Inspiratory Airway 11 Pressure Peak Inspiratory Airway 11 Pressure Peak Inspiratory Airway 11 Pressure Peak Inspiratory Airway 11 Pressure Peak Inspiratory Airway 11 Pressure Peak Inspiratory Airway 11 Pressure Results - Laboratory Findings CBC and BMP: 04/21/17 05:39 04/21/17 05:39 ABG ABG pH 7.43 pH Units (7.32-7.45) 04/21/17 04:10 ABG pCO2 47 mmHg (35-45) H 04/21/17 04:10 ABG pO2 75 mmHg (85-104) L 04/21/17 04:10 ABG O2 Saturation 95 % (95-98) 04/21/17 04:10 PT/INR, D-dimer PT 12.8 Seconds (9.4-12.1) H 04/14/17 19:53 Abnormal lab findings: Abnormal lab results RBC 3.72 M/mcL (4.19-5.50) L 04/21/17 05:39 Hgb 11.9 g/dL (12.9-16.9) L 04/21/17 05:39 Hct 36.1 % (37.5-50.1) L 04/21/17 05:39 PT 12.8 Seconds (9.4-12.1) H 04/14/17 19:53 ABG pCO2 47 mmHg (35-45) H 04/21/17 04:10 ABG pO2 75 mmHg (85-104) L 04/21/17 04:10 ABG HCO3 31 mEq/L (21-27) H 04/21/17 04:10 ABG Total CO2 32 mEq/L (20-26) H 04/21/17 04:10 ABG Base Excess 6 mEq/L (-2 to 3) H 04/21/17 04:10 BUN 62 mg/dL (8-26) H 04/21/17 05:39 Creatinine 1.75 mg/dL (0.72-1.25) H 04/21/17 05:39 Est GFR ( Amer) 46 (> 60) L 04/21/17 05:39 Est GFR (Non-Af Amer) 38 (> 60) L 04/21/17 05:39 BUN/Creatinine Ratio 35 (6-26) H 04/21/17 05:39 Glucose 203 mg/dL (70-99) H 04/21/17 05:39 POC Glucose 194 (58-89) H 04/21/17 05:57 Calculated Osmolality 321 (280-300) H 04/21/17 05:39 Calcium 8.5 mg/dL (8.6-10.8) L 04/21/17 05:39 Troponin I 24.39 ng/mL (0-0.03) H* 04/18/17 09:42 B-Natriuretic Peptide 1785 pg/mL (0-100) H 04/20/17 02:42 Triglycerides 154 mg/dL (< 150) H 04/15/17 02:28 VLDL Cholesterol, Calc 31 mg/dL (< 31) H 04/15/17 02:28 HDL Cholesterol 31 mg/dL (40-59) L 04/15/17 02:28 Vitamin B12 180 pg/mL (213-816) L 04/17/17 10:48 Prolactin 49.22 ng/mL (3.46-19.40) H 04/16/17 09:42 Ur Specific [place] >= 1.099 (1.010-1.025) H 04/18/17 16:12 Urine Blood Large (Negative) H 04/18/17 16:12 Urine Microscopic RBC 5-15 per hpf (0-3) H 04/18/17 16:12 Urine Microscopic WBC 3-5 per hpf (0-3) H 04/18/17 16:12 - Clinical Findings Intake & Output: Intake & Output 04/20/17 04/21/17 04/21/17 23:59 07:59 15:59 Intake Total 1381 / 1381 528 / 528 100 / 100 Output Total 5 / 5 650 / 650 Balance -694 / -694 -122 / -122 100 / 100 Weight 87.04 kg - VTE Documentation of Mechanical Device: Graduated compression elastic hosiery Consult Discharge Plan - Plan Referrals: matt, Cardiology [Other] (Office will call patient at home with follow up appointment) Minh Pierce MD [Primary Care Provider] - 04/23/17 11:30 am <Blayne Chirinos - Last Filed: 04/21/17 19:15> Date of Encounter: 04/21/17 Objective PUL Vital signs: Last Vital Signs Temp 98.8 F 04/21/17 07:40 Pulse 98 04/21/17 09:00 Resp 16 04/21/17 09:00 BP 114/77 04/21/17 09:00 Pulse Ox 96 04/21/17 09:00 Ventilator Settings Ventilator Settings: Ventilator Settings, Last 8 Hours Ventilator Mode VC+ Ventilator Mode VC+ Ventilator Mode VC+ Ventilator Mode VC+ Ventilator Mode VC+ Ventilator Mode VC+ Ventilator Mode VC+ Ventilator Mode VC+ Ventilator Mode VC+ Ventilator Mode VC+ Ventilator Tidal Volume 500 Setting Ventilator Tidal Volume 500 Setting Ventilator Tidal Volume 500 Setting Ventilator Tidal Volume 500 Setting Ventilator Tidal Volume 500 Setting Ventilator Tidal Volume 500 Setting Ventilator Tidal Volume 500 Setting Ventilator Tidal Volume 500 Setting Ventilator Tidal Volume 500 Setting Ventilator Tidal Volume 500 Setting Ventilator Respiratory Rate 12 Setting Ventilator Respiratory Rate 12 Setting Ventilator Respiratory Rate 12 Setting Ventilator Respiratory Rate 12 Setting Ventilator Respiratory Rate 12 Setting Ventilator Respiratory Rate 12 Setting Ventilator Respiratory Rate 12 Setting Ventilator Respiratory Rate 12 Setting Ventilator Respiratory Rate 12 Setting Ventilator Respiratory Rate 12 Setting Actual Respiratory Rate 16 Actual Respiratory Rate 16 Actual Respiratory Rate 16 Actual Respiratory Rate 16 Actual Respiratory Rate 15 Actual Respiratory Rate 15 Actual Respiratory Rate 15 Actual Respiratory Rate 18 Actual Respiratory Rate 15 Positive End Expiratory 5 Pressure Positive End Expiratory 5 Pressure Positive End Expiratory 5 Pressure Positive End Expiratory 5 Pressure Positive End Expiratory 5 Pressure Positive End Expiratory 5 Pressure Positive End Expiratory 5 Pressure Positive End Expiratory 5 Pressure Positive End Expiratory 5 Pressure Positive End Expiratory 5 Pressure Peak Inspiratory Airway 11 Pressure Peak Inspiratory Airway 11 Pressure Peak Inspiratory Airway 11 Pressure Peak Inspiratory Airway 11 Pressure Peak Inspiratory Airway 11 Pressure Peak Inspiratory Airway 11 Pressure Peak Inspiratory Airway 11 Pressure Peak Inspiratory Airway 11 Pressure Peak Inspiratory Airway 11 Pressure Results - Laboratory Findings CBC and BMP: 04/21/17 05:39 04/21/17 05:39 ABG ABG pH 7.43 pH Units (7.32-7.45) 04/21/17 04:10 ABG pCO2 47 mmHg (35-45) H 04/21/17 04:10 ABG pO2 75 mmHg (85-104) L 04/21/17 04:10 ABG O2 Saturation 95 % (95-98) 04/21/17 04:10 PT/INR, D-dimer PT 12.8 Seconds (9.4-12.1) H 04/14/17 19:53 Abnormal lab findings: Abnormal lab results RBC 3.72 M/mcL (4.19-5.50) L 04/21/17 05:39 Hgb 11.9 g/dL (12.9-16.9) L 04/21/17 05:39 Hct 36.1 % (37.5-50.1) L 04/21/17 05:39 PT 12.8 Seconds (9.4-12.1) H 04/14/17 19:53 ABG pCO2 47 mmHg (35-45) H 04/21/17 04:10 ABG pO2 75 mmHg (85-104) L 04/21/17 04:10 ABG HCO3 31 mEq/L (21-27) H 04/21/17 04:10 ABG Total CO2 32 mEq/L (20-26) H 04/21/17 04:10 ABG Base Excess 6 mEq/L (-2 to 3) H 04/21/17 04:10 BUN 62 mg/dL (8-26) H 04/21/17 05:39 Creatinine 1.75 mg/dL (0.72-1.25) H 04/21/17 05:39 Est GFR ( Amer) 46 (> 60) L 04/21/17 05:39 Est GFR (Non-Af Amer) 38 (> 60) L 04/21/17 05:39 BUN/Creatinine Ratio 35 (6-26) H 04/21/17 05:39 Glucose 203 mg/dL (70-99) H 04/21/17 05:39 POC Glucose 194 (58-89) H 04/21/17 05:57 Calculated Osmolality 321 (280-300) H 04/21/17 05:39 Calcium 8.5 mg/dL (8.6-10.8) L 04/21/17 05:39 Troponin I 24.39 ng/mL (0-0.03) H* 04/18/17 09:42 B-Natriuretic Peptide 1785 pg/mL (0-100) H 04/20/17 02:42 Triglycerides 154 mg/dL (< 150) H 04/15/17 02:28 VLDL Cholesterol, Calc 31 mg/dL (< 31) H 04/15/17 02:28 HDL Cholesterol 31 mg/dL (40-59) L 04/15/17 02:28 Vitamin B12 180 pg/mL (213-816) L 04/17/17 10:48 Prolactin 49.22 ng/mL (3.46-19.40) H 04/16/17 09:42 Ur Specific [place] >= 1.099 (1.010-1.025) H 04/18/17 16:12 Urine Blood Large (Negative) H 04/18/17 16:12 Urine Microscopic RBC 5-15 per hpf (0-3) H 04/18/17 16:12 Urine Microscopic WBC 3-5 per hpf (0-3) H 04/18/17 16:12 - Clinical Findings Intake & Output: Intake & Output 04/20/17 04/21/17 04/21/17 23:59 07:59 15:59 Intake Total 1381 / 1381 528 / 528 100 / 100 Output Total 2075 / 2075 650 / 650 Balance -694 / -694 -122 / -122 100 / 100 Weight 87.04 kg - Attending Attestation I examined this patient and my medical decision-making was reviewed with the Resident Physician. I agree with the documented findings, disposition and treatment plan as described except to the extent set forth below. Patient seen and examined. Labs, radiology, chart personally reviewed. Agree with resident's history and physical, assessment, plan with following comments: [employer] DIRECT[employer]: Patient sedated or the vent synchrony. Pulmonary: Patient still have significant intrinsic PEEP on the ventilator and not ready for spontaneous breathing trial. I have lowered his respiratory rate hoping that would help the intrinsic PEEP with continuation of the bronchodilators and diuresis as tolerated. I am very concerned about patient might need invasive mechanical ventilation for long period of time and prognosis is poor. Cardiovascular: Cardiology follow-up. I suspect taking positive pressure away from the patient then he could have pulmonary edema. GI: Nutrition per dietary and GI prophylaxis per routine Heme: DVT prophylaxis per routine ID: Continue antibiotics and plan to de-escalation Renal; urine out put and renal funtion reviewed Endorcine: blood glucose is monitored Lines: all lines checked and no evidence of infections Skin: skin care to prevent pressure ulcers per nursing routine care Family meeting done and Dr. Valerio told them about the poor prognosis from cardiac standpoint and I agreed. According to the family patient didn't wish any aggressive treatment and they wish only comfort care. Will consult palliative care. It is appropriate to continue antibiotics at this time. I spent 35 min of Critical Care time with this patient. It involved decision making of high complexity to assess, manipulate, and support vital organ system failure and/or to prevent further life threatening deterioration of the patient' s condition. The time involved in the performance of separately reportable procedures was not counted toward critical care time.
--- NOTE | 2017-04-21 11:39 | Cardiology Progress Note ---
Date of Encounter: 04/21/17 Time of Encounter: 11:33 Assessment and Plan (1) Coronary artery disease Current Visit: Yes Status: Chronic Qualifiers: Coronary Disease-Associated Artery/Lesion type: bypass graft [place] vs. transplanted heart: [place] heart Associated angina: with unstable angina Qualified Code(s): I25.700 - Atherosclerosis of coronary artery bypass graft(s) , unspecified, with unstable angina pectoris (2) Non-ST elevation [place] (NSTEMI) Current Visit: Yes Status: Acute NSTEMI - LHCs have resulted in PCI to the proximal and distal circumflex arteries. Unfortunately, LVEF severely reduced, 15%. Patient remains intubated. Despite attempts at revascularization, her overall condition has deteriorated owing his hospital stay. Long discussion with daughter and girlfriend. Per the reports, patient has expressed wishes of not receiving CPR, ventilatory support. They have decided to limit CODE STATUS, including no vasoactive drugs, compressions, etc. Hospice is to be consulted to meet with family. Continue diuresis as tolerated. Monitor creatinine, daily weights, I's and O's. Regarding ACS, continue aspirin, Plavix, atorvastatin, and metoprolol therapy. Overall condition/prognosis remains poor. Agree with conservative/comfort strategy moving forward. No further cardiology recommendations. Please call me if any questions or cocerns. Discussion w patient/family: The assessment and plan as outlined above was discussed with the patient and/or family members who expressed understanding and agreement. All questions were answered. Thank you for involving us in the care of your patient. Please call with any questions. Subjective Principal diagnosis: NSTEMI Interval history: Patient seen and examined. Overall condition unchanged. Remains intubated. Per reports, failed CPAP trials. Hemodynamics remained stable. Objective Vital Signs, Last 4 Hours Temp Pulse Resp BP Pulse Ox 04/21/17 11:00 95 16 107/73 96 04/21/17 10:35 16 96 04/21/17 10:00 95 16 108/79 96 04/21/17 09:00 98 16 114/77 96 04/21/17 08:00 92 16 114/77 96 04/21/17 07:40 98.8 F 15 96 General: Other (Intubated, sedated) HEENT: Atraumatic, Normocephaly, Mucus Membranes Moist Neck: No JVD, Normal carotid pulses Cardiac: Reg Rate and Rhythm, Normal S1 and S2, No Murmur Lungs: Other (Scattered rhonchi) Abdomen: Soft, Non-Tender Skin: No rashes noted on visualized skin Musculoskeletal: No Chest Wall Tenderness Extremities: No Edema Results 04/21/17 05:39 04/21/17 05:39 Lab Results 04/21/17 04/21/17 05:39 05:39 WBC 10.7 Hgb 11.9 L Hct 36.1 L Plt Count 154 Sodium 144 Potassium 3.8 Chloride 107 Carbon Dioxide 27 BUN 62 H Creatinine 1.75 H Glucose 203 H Calcium 8.5 L Magnesium 1.9 - Imaging and Cardiology Chest Xray: report reviewed Echo: report reviewed Cardiac cath: report reviewed - VTE Documentation of Mechanical Device: Graduated compression elastic hosiery Consult Discharge Plan - Plan Referrals: matt, Cardiology [Other] (Office will call patient at home with follow up appointment) Minh Pierce MD [Primary Care Provider] - 04/23/17 11:30 am
--- NOTE | 2017-04-21 14:43 | Palliative - Consult Note ---
Date of Encounter: 04/21/17 Time of Encounter: 14:30 - Assessment and Plan (1) Generalized pain Current Visit: Yes Status: Acute Assessment and plan: Currently on Fentanyl drip per ICu protocol. Continue and monitor. Transition to IVP after extubation tomorrow (2) Anxiety Current Visit: Yes Status: Acute Assessment and plan: Continues with Precedex per ICU protocol. Will transition tomorrow with extubation (3) Counseling regarding advanced care planning and goals of care Current Visit: Yes Status: Acute Assessment and plan: Met with girlfriend, Marnie [facility], and 2 daughters. Patient has already been transitioned to comfort care after discussion with instructional systems designer and farm laborer this am. Family does desire to wait until tomorrow for extubation , as they have family coming in from [place] in the am. Will see in am and assist with transition off vent, comfort measures, and move to palliative bed.. If he survives, may be able to transition to inpatient hospice on Sunday. If he survives hospital stay, girlfriend may not be able to care for him at home, he may require transition to nursing facility, which she is not in favor of. Will f/u in am. (4) Coronary artery disease Current Visit: Yes Status: Chronic Qualifiers: Coronary Disease-Associated Artery/Lesion type: bypass graft [place] vs. transplanted heart: [place] heart Associated angina: with unstable angina Qualified Code(s): I25.700 - Atherosclerosis of coronary artery bypass graft(s) , unspecified, with unstable angina pectoris (5) C. difficile diarrhea Current Visit: Yes Status: Acute (6) Cardiomyopathy Current Visit: Yes Status: Acute Qualifiers: Cardiomyopathy type: ischemic Qualified Code(s): I25.5 - Ischemic cardiomyopathy Palliative-CN HPI - Data of Consult Requesting Physician: Cj Ewing DO Primary Care Provider: Minh Pierce MD - Consult Narrative History of present illness: Mr. Rosario is a 72 year old male who was orginally transferred from [facility] with chest pain. He has many health problems with past medical history of CAD status post CABG and stents, hypertension, dementia, hypothyroidism, hyperlipidemia, PVD, AAA status post repair, anxiety, depression and h/o GI bleed. By record review, states he developed chest pain at around 7 AM of admission. Patient states he was at home when the pain started. [facility] had requested hospitalist service for transfer for chest pain and non- STEMI. Troponin was initially 8 and then 13.1, with ongoing chest pain. Cardiology was consulted. Patient underwent emergent LHC. Patient had successful PTCA/DS to proximal circumflex. Status post CABG 1 of 4 patent bypass grafts. He developed complications and was taken back to cardiac catheterization technologist and required stent to distal circumflex. He has done poorly since that time. EF 15 %. He has not been able to wean from the ventilator. ICU marine steam fitter and cardiology met with family this am to explain the dire situation and his poor prognosis. He was transitioned to [facility], and palliative care was consulted to assist with transition and compassionate extubation, comfort measures and discharge planning. CC: Cj Ewing, DO Past Med Surg Social Fam HX - Past Medical History Medical history: aortic aneurysm, coronary artery disease, GERD, GI bleed, hypertension, myocardial infarction, peripheral artery disease, thyroid disease Psychiatric history: no psych history - Past Surgical History Surgical History: coronary bypass (CABG), LE Bypass - Social History Smoking Status: Current every day smoker Alcohol use: none Drug use: none - Family History Brother Name: GERDA Family Member Ethnicity: Non- Living Status: Age at : 35 Cause of : [place] Hx Family Cardiac Disorders: Yes Hx Family Respiratory Disorders: No Hx Family Cancer: Yes Hx Family GI Disorders: No Hx Family Genitourinary Disorders: No Hx Family Endocrine Disorder: Yes (MOTHER DM) Hx Family Musculoskeletal Disorders: No Hx Family Neuromuscular Disorders: No Hx Family Neurologic Disorders: No Hx Family HEENT Disorders: No Hx Family Autoimmune Disorders: No Hx Family Reproductive Disorders: No Hx Family Psychosocial Disorders: No Hx Family Medical Disorders: Yes Medications and Allergies Allopurinol [Zyloprim] 100 mg PO DAILY #0 01/16/15 [History] Aspirin Enteric Coated [Aspirin EC] 81 mg PO DAILY 01/16/15 [History] Fluticasone Propionate Nasal [Flonase] 2 spray NS DAILY 01/16/15 [History] Isosorbide MONOnitrate (24 HR) [Imdur] 60 mg PO DAILY #0 01/16/15 [History] clonazePAM [Klonopin] 0.5 mg PO HS #0 01/16/15 [History] Levothyroxine [Synthroid] 75 mcg PO 0630 #0 01/17/15 [History] Montelukast [Singulair] 10 mg PO DAILY 01/17/15 [History] Nitroglycerin 0.4 mg SL Q5M PRN #0 01/17/15 [History] Oxycodone HCl/Acetaminophen [Percocet 10-325 mg Tablet] 1 each PO Q6H PRN #0 [History] Pregabalin [Lyrica] 150 mg PO BID #0 01/17/15 [History] Atorvastatin [Lipitor] 40 mg PO HS 05/17/16 [History] Clopidogrel [Plavix] 75 mg PO DAILY 05/17/16 [History] Memantine HCl 10 mg PO BID 05/17/16 [History] Mirtazapine [Remeron] 30 mg PO HS 05/17/16 [History] Multivitamin [Multi-Day Vitamins] 1 each PO DAILY 05/17/16 [History] Pantoprazole Sodium [Protonix] 40 mg PO DAILY 05/17/16 [History] Trazodone HCl 100 - 200 mg PO HS 05/17/16 [History] Tizanidine HCl [Tizanidine HCl] 4 mg PO Q8H 04/15/17 [History] 3 Allergy/AdvReac Type Severity Reaction Status Date / Time acetaminophen AdvReac Itching Verified 04/15/17 09:56 [From Darvocet-N] enalaprilat [From Vasotec] AdvReac Weakness Verified 04/15/17 09:56 propoxyphene AdvReac Itching Verified 04/15/17 09:56 [From Darvocet-N] simvastatin [From Zocor] AdvReac Fainting Verified 04/15/17 09:56 ROS unobtainable: due to endotracheal tube Palliative Care-Exam - Constitutional Vitals: Temp Pulse Resp BP Pulse Ox 99.5 F 95 16 107/68 97 04/21/17 12:00 04/21/17 14:00 04/21/17 14:00 04/21/17 14:00 04/21/17 14:00 General appearance: Present: no acute distress, obese - Head Head Exam: Present: normal inspection, normocephalic - Eye Eye exam: Present: normal appearance, PERRL - Respiratory Respiratory exam: Present: CTAB Additional comments: Breath sounds course - Cardiovascular Cardiovascular exam: Present: +S1, +S2 - GI/Abdominal Exam GI/Abdominal exam: Present: diminished bowel sounds, distended, soft - Catheter Type: Urethral ([place]) - Extremities Exam Extremities exam: Present: normal capillary refill, normal inspection - Neurological Exam Additional comments: Awakens with stimulation, remains lightly sedated on vent. Can follow simple commands - Skin Skin exam: Present: dry, pallor, warm Internal Medicine - CN: Reslt - Labs CBC & Chem 7: 04/21/17 05:39 04/21/17 05:39 Labs: Short CBC 04/21/17 Range/Units 05:39 WBC 10.7 (4.3-11.1) K/mcL Hgb 11.9 L (12.9-16.9) g/dL Hct 36.1 L (37.5-50.1) % Plt Count 154 (140-400) K/mcL Neutrophils # 8.8 (1.6-8.9) K/mcL BMP 04/21/17 05:39 Sodium 144 Potassium 3.8 Chloride 107 Carbon Dioxide 27 BUN 62 H Creatinine 1.75 H Glucose 203 H Calcium 8.5 L - ABG Interpretation ABG results: ABG ABG pH 7.43 pH Units (7.32-7.45) 04/21/17 04:10 ABG pCO2 47 mmHg (35-45) H 04/21/17 04:10 ABG pO2 75 mmHg (85-104) L 04/21/17 04:10 ABG O2 Saturation 95 % (95-98) 04/21/17 04:10 PT/INR, D-dimer PT 12.8 Seconds (9.4-12.1) H 04/14/17 19:53 Consult Discharge Plan - Plan Referrals: matt, Cardiology [Other] (Office will call patient at home with follow up appointment) Minh Pierce MD [Primary Care Provider] - 04/23/17 11:30 am Palliative Quality Palliative Quality: Screen for Code Status: Yes, Screen for Goals of Care: Yes, Screen for Pain: Yes, If Pain Regimen Started, Initiate Bowel Regimen: NA, Screen for Nausea/Vomitting: Yes Code Status: 04/14/17 20:06 Resuscitation Status: Active [RES] Routine Comment: Resuscitation Status: Full Code 04/21/17 11:08 Resuscitation Status: Active [RES] Routine Comment: Resuscitation Status: DNR-Comfort Care
[2017-04-21 15:19] LABS: ABG Base Excess -5 mEq/L (-2 to 3); ABG HCO3 21 mEq/L (21-27); ABG Oxygen Saturation 96 % (95-98); ABG PCO2 42 mmHg (35-45); ABG PH 7.32 pH Units (7.32-7.45); ABG PO2 86 mmHg (85-104); ABG TCO2 23 mEq/L (20-26); Blood Gas Modality BiLevel; Blood Gas PEEP 6 cm H2O; Blood Gas Pressure Support 14 cm H2O
[2017-04-21] MEDS: clonazePAM 0.5 MG TABLET PO SCH (20:06)
[2017-04-21] MEDS: Mirtazapine 15 MG TABLET PO SCH (20:06)
[2017-04-21] MEDS: traZODone 50 MG TABLET PO SCH (20:09)
[2017-04-22] MEDS: FentaNYL (PF) 3,000 MCG in 0.9 % Sodium Chloride 240 ML IVC SCH (01:17)
[2017-04-22] MEDS: metroNIDAZOLE 500 MG TABLET PO SCH ×2 (03:18→14:00)
[2017-04-22] MEDS: Lacri-Lube 3.5 GM TUBE BOTH EYES SCH ×3 (03:19→14:01)
[2017-04-22] MEDS: Levalbuterol Neb 1.25 MG/3 ML IH SCH ×5 (04:51→22:25)
[2017-04-22] MEDS: *HR* Heparin 5,000 UNIT/ML VIAL SQ SCH (06:00)
[2017-04-22] MEDS: Insulin LISPRO 300 UNITS/3 ML VIAL SQ SCH ×3 (06:06→18:07)
[2017-04-22 06:22] LABS: BUN/Creatinine Ratio 37 (6-26); Blood Urea Nitrogen 49 mg/dL (8-26); Calcium 7.6 mg/dL (8.6-10.8); Carbon Dioxide 28 mEq/L (19-29); Chloride 110 mEq/L (98-109); Glucose 165 mg/dL (70-99); Osmolality,Calculated 331 (280-300); Potassium 3.4 mEq/L (3.5-4.5); Sodium 152 mEq/L (136-145); eGFR For African Americans > 60 (> 60); eGFR For Non-African Americans 53 (> 60)
[2017-04-22 06:32] LABS: Basophils % 0.1 %; Eosinophils # 0.1 K/mcL (0.0-0.6); Eosinophils % 1.3 %; Lymphocytes # 0.9 K/mcL (0.6-4.6); Lymphocytes % 10.3 %; Mean Corpuscular HGB Conc 30.8 g/dL (31.6-35.5); Mean Corpuscular Hemoglobin 31.5 pg (28.0-33.3); Mean Corpuscular Volume 102.4 fL (83.0-100.0); Mean Platelet Volume 11.8 fL (9.4-12.4); Monocytes # 0.6 K/mcL (0.0-1.3); Monocytes % 7.1 %; Neutrophils # 6.6 K/mcL (1.6-8.9); Platelet Count 114 K/mcL (140-400); Red Blood Count 2.54 M/mcL (4.19-5.50); Red Cell Distribution Width 13.8 % (11.5-14.5); Segmented Neutrophils % 80.2 %
[2017-04-22] MEDS: Dexmedetomidine HCl 400 MCG/100 ML MLS IVC SCH (08:02)
[2017-04-22] MEDS: Fluticasone Propionate Nasal 50 MCG/SPRAY BOTTLE NS SCH (08:03)
[2017-04-22] MEDS ORDERED: Potassium Chloride Elixir 20 MEQ/15 ML UDC GTUBE ONE (08:30)
[2017-04-22] MEDS: Chlorhexidine Rinse 15 ML MOUTHWASH MM SCH ×2 (08:50→22:29)
[2017-04-22] MEDS: Vancomycin 1,000 MG in D5% in Water 250 ML IVPB SCH (08:50)
[2017-04-22] MEDS: Pantoprazole 40 MG VIAL IVP SCH (08:50)
[2017-04-22] MEDS: Furosemide 40 MG/4 ML VIAL IVP SCH ×2 (08:50→18:08)
[2017-04-22] MEDS: Multivit/Ca/Min/Fe/FA 1 TAB TABLET PO SCH (08:51)
[2017-04-22] MEDS: Isosorbide MONOnitrate (24 HR) 60 MG TAB.ER.24H PO SCH (08:51)
[2017-04-22] MEDS: Aspirin 81 MG TAB.CHEW PO SCH (08:51)
[2017-04-22] MEDS: amLODIPine 5 MG TABLET PO SCH (08:51)
[2017-04-22] MEDS: Folic Acid 1 MG TABLET PO SCH (08:51)
[2017-04-22] MEDS ORDERED: D5% in Water 1,000 ML IVC SCH ×2 (09:30→16:52)
--- NOTE | 2017-04-22 09:41 | Pulmonology Progress Note ---
<Blayne Chirinos M - Last Filed: 04/22/17 10:42> Date of Encounter: 04/22/17 Objective PUL Vital signs: Last Vital Signs Temp 98.4 F 04/22/17 08:00 Pulse 101 04/22/17 10:00 Resp 18 04/22/17 10:00 BP 117/78 04/22/17 10:00 Pulse Ox 98 04/22/17 10:00 Ventilator Settings Ventilator Settings: Ventilator Settings, Last 8 Hours Ventilator Mode VC+ Ventilator Mode CPAP Ventilator Mode VC+ Ventilator Mode VC+ Ventilator Mode VC+ Ventilator Mode VC+ Ventilator Mode VC+ Ventilator Mode VC+ Ventilator Mode VC+ Ventilator Mode VC+ Ventilator Mode VC+ Ventilator Tidal Volume 500 Setting Ventilator Tidal Volume 500 Setting Ventilator Tidal Volume 500 Setting Ventilator Tidal Volume 500 Setting Ventilator Tidal Volume 500 Setting Ventilator Tidal Volume 500 Setting Ventilator Tidal Volume 500 Setting Ventilator Tidal Volume 500 Setting Ventilator Tidal Volume 500 Setting Ventilator Tidal Volume 500 Setting Ventilator Respiratory Rate 10 Setting Ventilator Respiratory Rate 10 Setting Ventilator Respiratory Rate 10 Setting Ventilator Respiratory Rate 10 Setting Ventilator Respiratory Rate 10 Setting Ventilator Respiratory Rate 10 Setting Ventilator Respiratory Rate 10 Setting Ventilator Respiratory Rate 10 Setting Ventilator Respiratory Rate 10 Setting Ventilator Respiratory Rate 10 Setting Actual Respiratory Rate 20 Actual Respiratory Rate 22 Actual Respiratory Rate 20 Actual Respiratory Rate 24 Actual Respiratory Rate 20 Actual Respiratory Rate 17 Actual Respiratory Rate 23 Actual Respiratory Rate 21 Actual Respiratory Rate 18 Actual Respiratory Rate 18 Actual Respiratory Rate 16 Positive End Expiratory 5 Pressure Positive End Expiratory 5 Pressure Positive End Expiratory 5 Pressure Positive End Expiratory 5 Pressure Positive End Expiratory 5 Pressure Positive End Expiratory 5 Pressure Positive End Expiratory 5 Pressure Positive End Expiratory 5 Pressure Positive End Expiratory 5 Pressure Positive End Expiratory 5 Pressure Positive End Expiratory 5 Pressure Peak Inspiratory Airway 11 Pressure Peak Inspiratory Airway 11 Pressure Peak Inspiratory Airway 17 Pressure Peak Inspiratory Airway 15 Pressure Peak Inspiratory Airway 15 Pressure Peak Inspiratory Airway 15 Pressure Peak Inspiratory Airway 14 Pressure Peak Inspiratory Airway 22 Pressure Peak Inspiratory Airway 19 Pressure Peak Inspiratory Airway 20 Pressure Peak Inspiratory Airway 18 Pressure Results - Laboratory Findings CBC and BMP: 04/22/17 06:01 04/22/17 06:01 ABG ABG pH 7.32 pH Units (7.32-7.45) 04/21/17 15:12 ABG pCO2 42 mmHg (35-45) 04/21/17 15:12 ABG pO2 86 mmHg (85-104) 04/21/17 15:12 ABG O2 Saturation 96 % (95-98) 04/21/17 15:12 PT/INR, D-dimer PT 12.8 Seconds (9.4-12.1) H 04/14/17 19:53 Abnormal lab findings: Abnormal lab results RBC 2.54 M/mcL (4.19-5.50) L 04/22/17 06:01 Hgb 8.0 g/dL (12.9-16.9) L D 04/22/17 06:01 Hct 26.0 % (37.5-50.1) L 04/22/17 06:01 MCV 102.4 fL (83.0-100.0) H 04/22/17 06:01 MCHC 30.8 g/dL (31.6-35.5) L 04/22/17 06:01 Plt Count 114 K/mcL (140-400) L 04/22/17 06:01 PT 12.8 Seconds (9.4-12.1) H 04/14/17 19:53 ABG Base Excess -5 mEq/L (-2 to 3) L 04/21/17 15:12 Sodium 152 mEq/L (136-145) H D 04/22/17 06:01 Potassium 3.4 mEq/L (3.5-4.5) L 04/22/17 06:01 Chloride 110 mEq/L (98-109) H 04/22/17 06:01 BUN 49 mg/dL (8-26) H D 04/22/17 06:01 Creatinine 1.33 mg/dL (0.72-1.25) H 04/22/17 06:01 Est GFR (Non-Af Amer) 53 (> 60) L 04/22/17 06:01 BUN/Creatinine Ratio 37 (6-26) H 04/22/17 06:01 Glucose 165 mg/dL (70-99) H 04/22/17 06:01 POC Glucose 208 (58-89) H 04/22/17 06:05 Calculated Osmolality 331 (280-300) H 04/22/17 06:01 Calcium 7.6 mg/dL (8.6-10.8) L 04/22/17 06:01 Troponin I 24.39 ng/mL (0-0.03) H* 04/18/17 09:42 B-Natriuretic Peptide 1785 pg/mL (0-100) H 04/20/17 02:42 Triglycerides 154 mg/dL (< 150) H 04/15/17 02:28 VLDL Cholesterol, Calc 31 mg/dL (< 31) H 04/15/17 02:28 HDL Cholesterol 31 mg/dL (40-59) L 04/15/17 02:28 Vitamin B12 180 pg/mL (213-816) L 04/17/17 10:48 Prolactin 49.22 ng/mL (3.46-19.40) H 04/16/17 09:42 Ur Specific [place] >= 1.099 (1.010-1.025) H 04/18/17 16:12 Urine Blood Large (Negative) H 04/18/17 16:12 Urine Microscopic RBC 5-15 per hpf (0-3) H 04/18/17 16:12 Urine Microscopic WBC 3-5 per hpf (0-3) H 04/18/17 16:12 Vancomycin Trough 6.5 mcg/mL (10-20) L 04/22/17 08:34 - Microbiology Findings Microbiology Findings: Microbiology, Last 48 Hours 04/16/17 09:42 Blood Culture - Final Peripheral Venipuncture No growth. 04/16/17 09:42 Blood Culture - Final Peripheral Venipuncture No growth. 04/20/17 23:50 Sputum Culture - Preliminary Sputum - Clinical Findings Intake & Output: Intake & Output 04/21/17 04/22/17 04/22/17 23:59 07:59 15:59 Intake Total 1109 / 1109 690 / 690 100 / 100 Output Total 1050 / 1050 200 / 200 200 / 200 Balance 59 / 59 490 / 490 -100 / -100 Weight 78 kg Consult Discharge Plan - Plan Referrals: matt, Cardiology [Other] (Office will call patient at home with follow up appointment) Minh Pierce MD [Primary Care Provider] - 04/23/17 11:30 am - Attending Attestation I examined this patient and my medical decision-making was reviewed with the Resident Physician. I agree with the documented findings, disposition and treatment plan as described except to the extent set forth below. Patient seen and examined. Labs, radiology, chart personally reviewed. Agree with resident's history and physical, assessment, plan with following comments: PLANNER INTERN: Patient follows commands, Pulmonary: Acceptable oxygenation and ventilation patient self extubated. And he was placed on BiPAP. Discussed with the family. Cardiovascular: stable GI: Nutrition per dietary and GI prophylaxis per routine Heme: DVT prophylaxis per routine ID: Continue antibiotics and plan to de-escalation Renal; urine out put and renal funtion reviewed. Correct his electrolyte and need some hydration Endorcine: blood glucose is monitored Lines: all lines checked and no evidence of infections Skin: skin care to prevent pressure ulcers per nursing routine care Anticipate the patient will be transferred to the floor Overall prognosis is poor <Norma Nash - Last Filed: 04/22/17 11:09> Date of Encounter: 04/22/17 Time of Encounter: 09:41 Assessment and Plan (1) Acute respiratory failure Current Visit: Yes Status: Acute - Significant respiratory distress with accessory muscle use despite of being on BiPAP and eventually intubated on 04/18/17. - Likely secondary to pulmonary edema related to IV hydration (for C. difficle diarrhea) in the setting of severe systolic CHF. - Patient's baseline anxiety/agitaton likely also contribute to his respiratory distress. Home dose klonopin. - Currently intubated and on ventilation support. . - Continue current diuresis regimen for CHF and bronchodilators for COPD. -04/21- Code status changed to CNR CC with patient's family at bedside including daughter and ARTI Dye. Upon further discussions with Dr. Valerio from cardiology and Dr. Jarrett, ICU intensivists, patient will be made comfort care. Palliative to be consulted. -04/22- Patient self- extubated this morning. Tolerating BiPaP well with good oxygen saturation. Qualifiers: Respiratory failure complication: unspecified whether with hypoxia or hypercapnia Qualified Code(s): J96.00 - Acute respiratory failure, unspecified whether with hypoxia or hypercapnia (2) Non-ST elevation ND (NSTEMI) Current Visit: Yes Status: Acute - Initial troponin at 13.10 on 04/14/17, later peaked at 48.79 on 04/15/17 then downtrended to 12.69 on 04/17/17 - LHC on 04/14/17: Severe 1-V CAD S/P CABG 1 of 4 patent bypass grafts with LVEF 60%, a RANDEE placed in the the proximal Circ. - Echo on 04/15/17: LVEF 60% with mild left ventricular diastolic dysfunction. - Troponin elevated to 24.39 on 04/18/17. - LHC on 04/18/17: evere 3-V CAD S/P CABG 1 of 4 patent bypass grafts, a previous stent in 2nd Marginal with severe in-stent stenosis, and a RANDEE placement in the distal Circ. - Echo on 04/18/17: LVE 15-20% with severe global LV systolic dysfunction, which appears since prior study. - Continue aspirin, Plavix, Lopressor, Lipitor and Imdur. - Per cardiology, poor prognosis. Appreciate cardiology input. -04/22-Patient tolerating BiPAP well after self-extubation. Will transition to face mask. -Appreciate palliative recommendations (3) Hypernatremia Current Visit: Yes Status: Acute Patient sodium 152 on 04/22/2017 -Free water deficit 3.3 -Will give 1 liter of IV D5W at 130 mls/hour Replete other electrolytes according to protocol. (4) Pneumonia Current Visit: Yes Status: Acute - CXR 04/20/2017 found worsening right basilar airspace disease suspicious for pneumonia. - Sputum culture prelim normal URT deanne. - IV vancomycin and Zosyn, Day 3 (started 04/20/17). Qualifiers: Pneumonia type: due to unspecified organism Laterality: right Lung location: lower lobe of lung Qualified Code(s): J18.1 - Lobar pneumonia, unspecified organism (5) JOHN (acute kidney injury) Current Visit: Yes Status: Acute - SCr 2.02 / eGFR 32 on 04/19/17. - Likely secondary to contrast use in the setting of diuresis. - Creatinine 1.33 today - Avoid nephrotoxin. - Continue to monitor renal function and electrolytes closely. (6) Systolic CHF Current Visit: Yes Status: Acute - Echo on 04/18/17: LVE 15-20% with severe global LV systolic dysfunction, which appears since prior study. - Continue Lasix 40 mg IV BID. - Net -1053 mL so far. - Strict I/O and daily weight. Qualifiers: Congestive heart failure chronicity: acute Qualified Code(s): I50.21 - Acute systolic (congestive) heart failure (7) Coronary artery disease Current Visit: Yes Status: Chronic - Severe CAD s/p CABG in 2008. - Continue aspirin, Plavix, Lopressor, Imdur and Lipitor. Qualifiers: Coronary Disease-Associated Artery/Lesion type: bypass graft [place] vs. transplanted heart: [place] heart Associated angina: with unstable angina Qualified Code(s): I25.700 - Atherosclerosis of coronary artery bypass graft(s) , unspecified, with unstable angina pectoris (8) C. difficile diarrhea Current Visit: Yes Status: Acute - Positive stool C. difficile toxin gene PCR on 04/16/17. - Continue metronidazole (since 04/16/17). (9) Hypothyroidism Current Visit: Yes Status: Chronic -continue synthroid. Qualifiers: Hypothyroidism type: acquired Qualified Code(s): E03.9 - Hypothyroidism, unspecified (10) Hypertension Current Visit: Yes Status: Chronic -continue metoprolol Qualifiers: Hypertension type: essential hypertension Qualified Code(s): I10 - Essential (primary) hypertension (11) Peripheral vascular disease Current Visit: Yes Status: Chronic (12) Dementia Current Visit: Yes Status: Chronic -continue memantine Qualifiers: Dementia type: Alzheimer's disease Alzheimer's disease onset: early-onset Dementia behavioral disturbance: without behavioral disturbance Qualified Code(s): G30.0 - Alzheimer's disease with early onset; F02.80 - Dementia in other diseases classified elsewhere without behavioral disturbance; F02.80 - Dementia in other diseases classified elsewhere without behavioral disturbance; F02.80 - Dementia in other diseases classified elsewhere without behavioral disturbance (13) DVT prophylaxis Current Visit: Yes Status: Acute -continue SQ heparin GI Prophylaxis- IV Protonix Subjective Principal diagnosis: NSTEMI Interval history: Patient doing well overnight. No acute events overnight. Per palliative discussions yesterday, planned extubation this morning. Patient did self- extubate this morning. Tolerating Bipap well. Objective PUL Vital signs: Last Vital Signs Temp 98.7 F 04/22/17 04:23 Pulse 115 04/22/17 08:00 Resp 22 04/22/17 08:41 BP 121/77 04/22/17 08:00 Pulse Ox 96 04/22/17 08:41 General appearance: no acute distress, alert Eyes: nonicteric ENT: oropharynx dry Effort: mildly labored Auscultation: bilateral: clear Cardiovascular: regular rate and rhythm Gastrointestinal: normoactive bowel sounds, soft, non-distended Integumentary: normal Extremities: no cyanosis, no edema Musculoskeletal: no deformities Ventilator Settings Ventilator Settings: Ventilator Settings, Last 8 Hours Ventilator Mode CPAP Ventilator Mode VC+ Ventilator Mode VC+ Ventilator Mode VC+ Ventilator Mode VC+ Ventilator Mode VC+ Ventilator Mode VC+ Ventilator Mode VC+ Ventilator Mode VC+ Ventilator Mode VC+ Ventilator Mode VC+ Ventilator Tidal Volume 500 Setting Ventilator Tidal Volume 500 Setting Ventilator Tidal Volume 500 Setting Ventilator Tidal Volume 500 Setting Ventilator Tidal Volume 500 Setting Ventilator Tidal Volume 500 Setting Ventilator Tidal Volume 500 Setting Ventilator Tidal Volume 500 Setting Ventilator Tidal Volume 500 Setting Ventilator Tidal Volume 500 Setting Ventilator Respiratory Rate 10 Setting Ventilator Respiratory Rate 10 Setting Ventilator Respiratory Rate 10 Setting Ventilator Respiratory Rate 10 Setting Ventilator Respiratory Rate 10 Setting Ventilator Respiratory Rate 10 Setting Ventilator Respiratory Rate 10 Setting Ventilator Respiratory Rate 10 Setting Ventilator Respiratory Rate 10 Setting Ventilator Respiratory Rate 10 Setting Actual Respiratory Rate 22 Actual Respiratory Rate 20 Actual Respiratory Rate 24 Actual Respiratory Rate 20 Actual Respiratory Rate 17 Actual Respiratory Rate 23 Actual Respiratory Rate 21 Actual Respiratory Rate 18 Actual Respiratory Rate 18 Actual Respiratory Rate 16 Actual Respiratory Rate 18 Positive End Expiratory 5 Pressure Positive End Expiratory 5 Pressure Positive End Expiratory 5 Pressure Positive End Expiratory 5 Pressure Positive End Expiratory 5 Pressure Positive End Expiratory 5 Pressure Positive End Expiratory 5 Pressure Positive End Expiratory 5 Pressure Positive End Expiratory 5 Pressure Positive End Expiratory 5 Pressure Positive End Expiratory 5 Pressure Peak Inspiratory Airway 11 Pressure Peak Inspiratory Airway 17 Pressure Peak Inspiratory Airway 15 Pressure Peak Inspiratory Airway 15 Pressure Peak Inspiratory Airway 15 Pressure Peak Inspiratory Airway 14 Pressure Peak Inspiratory Airway 22 Pressure Peak Inspiratory Airway 19 Pressure Peak Inspiratory Airway 20 Pressure Peak Inspiratory Airway 18 Pressure Peak Inspiratory Airway 21 Pressure Results - Laboratory Findings CBC and BMP: 04/22/17 06:01 04/22/17 06:01 ABG ABG pH 7.32 pH Units (7.32-7.45) 04/21/17 15:12 ABG pCO2 42 mmHg (35-45) 04/21/17 15:12 ABG pO2 86 mmHg (85-104) 04/21/17 15:12 ABG O2 Saturation 96 % (95-98) 04/21/17 15:12 PT/INR, D-dimer PT 12.8 Seconds (9.4-12.1) H 04/14/17 19:53 Abnormal lab findings: Abnormal lab results RBC 2.54 M/mcL (4.19-5.50) L 04/22/17 06:01 Hgb 8.0 g/dL (12.9-16.9) L D 04/22/17 06:01 Hct 26.0 % (37.5-50.1) L 04/22/17 06:01 MCV 102.4 fL (83.0-100.0) H 04/22/17 06:01 MCHC 30.8 g/dL (31.6-35.5) L 04/22/17 06:01 Plt Count 114 K/mcL (140-400) L 04/22/17 06:01 PT 12.8 Seconds (9.4-12.1) H 04/14/17 19:53 ABG Base Excess -5 mEq/L (-2 to 3) L 04/21/17 15:12 Sodium 152 mEq/L (136-145) H D 04/22/17 06:01 Potassium 3.4 mEq/L (3.5-4.5) L 04/22/17 06:01 Chloride 110 mEq/L (98-109) H 04/22/17 06:01 BUN 49 mg/dL (8-26) H D 04/22/17 06:01 Creatinine 1.33 mg/dL (0.72-1.25) H 04/22/17 06:01 Est GFR (Non-Af Amer) 53 (> 60) L 04/22/17 06:01 BUN/Creatinine Ratio 37 (6-26) H 04/22/17 06:01 Glucose 165 mg/dL (70-99) H 04/22/17 06:01 POC Glucose 208 (58-89) H 04/22/17 06:05 Calculated Osmolality 331 (280-300) H 04/22/17 06:01 Calcium 7.6 mg/dL (8.6-10.8) L 04/22/17 06:01 Troponin I 24.39 ng/mL (0-0.03) H* 04/18/17 09:42 B-Natriuretic Peptide 1785 pg/mL (0-100) H 04/20/17 02:42 Triglycerides 154 mg/dL (< 150) H 04/15/17 02:28 VLDL Cholesterol, Calc 31 mg/dL (< 31) H 04/15/17 02:28 HDL Cholesterol 31 mg/dL (40-59) L 04/15/17 02:28 Vitamin B12 180 pg/mL (213-816) L 04/17/17 10:48 Prolactin 49.22 ng/mL (3.46-19.40) H 04/16/17 09:42 Ur Specific [place] >= 1.099 (1.010-1.025) H 04/18/17 16:12 Urine Blood Large (Negative) H 04/18/17 16:12 Urine Microscopic RBC 5-15 per hpf (0-3) H 04/18/17 16:12 Urine Microscopic WBC 3-5 per hpf (0-3) H 04/18/17 16:12 Vancomycin Trough 6.5 mcg/mL (10-20) L 04/22/17 08:34 - Microbiology Findings Microbiology Findings: Microbiology, Last 48 Hours 04/16/17 09:42 Blood Culture - Final Peripheral Venipuncture No growth. 04/16/17 09:42 Blood Culture - Final Peripheral Venipuncture No growth. 04/20/17 23:50 Sputum Culture - Preliminary Sputum - Clinical Findings Intake & Output: Intake & Output 04/21/17 04/22/17 04/22/17 23:59 07:59 15:59 Intake Total 1109 / 1109 690 / 690 100 / 100 Output Total 1050 / 1050 200 / 200 Balance 59 / 59 490 / 490 100 / 100 Weight 78 kg - VTE Documentation of Mechanical Device: Graduated compression elastic hosiery
[2017-04-22] MEDS ORDERED: Piperacillin/Tazobactam 3.375 GM/200 ML BAG IVPB SCH ×2 (12:00→20:00)
[2017-04-22 12:12] LABS: Hematocrit 37.7 % (37.5-50.1)
[2017-04-22 12:18] LABS: Hemoglobin 12.3 g/dL (12.9-16.9)
[2017-04-22] MEDS ORDERED: *HR* LORazepam 2 MG/ML VIAL IVP PRN (12:23)
[2017-04-22] MEDS ORDERED: *HR* Morphine 2 MG/ML SYRINGE IVP PRN (12:24)
--- NOTE | 2017-04-22 12:28 | Palliative Progress Note ---
Date of Encounter: 04/22/17 Time of Encounter: 11:30 - Assessment and plan (1) Generalized pain Current Visit: Yes Status: Acute Assessment and plan: Patient extubated and may be transitioning out of ICU today. Will have low dose Morphine available for pain if needed upon transfer. (2) Anxiety Current Visit: Yes Status: Acute Assessment and plan: Extubated this am - will need swallowing evaluated. Will add low dose Lorazepam IV if needed for anxiety. Hopefully he will be able to take po and continue his home Clonazepam. (3) Counseling regarding advanced care planning and goals of care Current Visit: Yes Status: Acute Assessment and plan: not present during my visit - D/W daughter Sherie at bedside. Will require close monitoring - unsure how he will do intermediate manager with his respiratory status. Explained to her that bipap is short term, and we will need to see later if he can be weaned off of this. His girlfriend , Marnie, has said to her that she cannot take him home, but will refuse [facility]. Discussed with Sherie, that at this point, not sure what his status will be, but if he stabilizes, will have to work on discharge plan to one or the other. If he does poorly, palliative team will eval for inpt hospice- but that again could be short term. Sherie verbalized understanding and states she will speak with pt girlfriend regarding this. He will likely transition out of ICU today under the hospitalist care. He can move to palliative room and we will continue to follow and evaluate. (4) Coronary artery disease Current Visit: Yes Status: Chronic Qualifiers: Coronary Disease-Associated Artery/Lesion type: bypass graft [place] vs. transplanted heart: [place] heart Associated angina: with unstable angina Qualified Code(s): I25.700 - Atherosclerosis of coronary artery bypass graft(s) , unspecified, with unstable angina pectoris (5) C. difficile diarrhea Current Visit: Yes Status: Acute (6) Cardiomyopathy Current Visit: Yes Status: Acute Qualifiers: Cardiomyopathy type: ischemic Qualified Code(s): I25.5 - Ischemic cardiomyopathy - Time Spent With Patient Total time spent is greater than 50% in coordination of care (as documented) at patient's floor/unit and/or counseling patient: - Subjective Interval history: Patient self extubated this am. Currently on bipap. Daughter at bedside. Awake alert and conversing. Asking for bedpan. Hbg down almost 4 gm since yesterday - will be repeated. Denies pain or discomfort. Tolerating bipap well. - Constitutional Vitals: Abnormal lab results RBC 2.54 M/mcL (4.19-5.50) L 04/22/17 06:01 Hgb 12.3 g/dL (12.9-16.9) L D 04/22/17 12:03 MCV 102.4 fL (83.0-100.0) H 04/22/17 06:01 MCHC 30.8 g/dL (31.6-35.5) L 04/22/17 06:01 Plt Count 114 K/mcL (140-400) L 04/22/17 06:01 PT 12.8 Seconds (9.4-12.1) H 04/14/17 19:53 ABG Base Excess -5 mEq/L (-2 to 3) L 04/21/17 15:12 Sodium 152 mEq/L (136-145) H D 04/22/17 06:01 Potassium 3.4 mEq/L (3.5-4.5) L 04/22/17 06:01 Chloride 110 mEq/L (98-109) H 04/22/17 06:01 BUN 49 mg/dL (8-26) H D 04/22/17 06:01 Creatinine 1.33 mg/dL (0.72-1.25) H 04/22/17 06:01 Est GFR (Non-Af Amer) 53 (> 60) L 04/22/17 06:01 BUN/Creatinine Ratio 37 (6-26) H 04/22/17 06:01 Glucose 165 mg/dL (70-99) H 04/22/17 06:01 POC Glucose 208 (58-89) H 04/22/17 06:05 Calculated Osmolality 331 (280-300) H 04/22/17 06:01 Calcium 7.6 mg/dL (8.6-10.8) L 04/22/17 06:01 Troponin I 24.39 ng/mL (0-0.03) H* 04/18/17 09:42 B-Natriuretic Peptide 1785 pg/mL (0-100) H 04/20/17 02:42 Triglycerides 154 mg/dL (< 150) H 04/15/17 02:28 VLDL Cholesterol, Calc 31 mg/dL (< 31) H 04/15/17 02:28 HDL Cholesterol 31 mg/dL (40-59) L 04/15/17 02:28 Vitamin B12 180 pg/mL (213-816) L 04/17/17 10:48 Prolactin 49.22 ng/mL (3.46-19.40) H 04/16/17 09:42 Ur Specific [place] >= 1.099 (1.010-1.025) H 04/18/17 16:12 Urine Blood Large (Negative) H 04/18/17 16:12 Urine Microscopic RBC 5-15 per hpf (0-3) H 04/18/17 16:12 Urine Microscopic WBC 3-5 per hpf (0-3) H 04/18/17 16:12 Vancomycin Trough 6.5 mcg/mL (10-20) L 04/22/17 08:34 General appearance: Present: no acute distress - Respiratory Respiratory exam: Present: decreased breath sounds, CTAB - Cardiovascular Cardiovascular exam: Present: +S1, +S2 - GI/Abdominal GI/Abdominal exam: Present: distended, normal bowel sounds, soft - Extremities Exam Extremities exam: Present: normal capillary refill, normal inspection - Neurological Exam Neurological exam: Present: alert, strengths equal and symetr throughout Additional comments: Oriented to person and place. Follows commands - Skin Skin exam: Present: dry, warm Palliative Quality Palliative Quality: Screen for Code Status: Yes, Screen for Goals of Care: Yes, Screen for Pain: Yes, If Pain Regimen Started, Initiate Bowel Regimen: NA, Screen for Nausea/Vomitting: Yes Code Status: 04/14/17 20:06 Resuscitation Status: Active [RES] Routine Comment: Resuscitation Status: Full Code 04/21/17 11:08 Resuscitation Status: Active [RES] Routine Comment: Resuscitation Status: DNR-Comfort Care - Labs CBC & Chem 7: 04/22/17 12:03 04/22/17 06:01 Labs: Laboratory Results - last 24 hr 04/21/17 04/21/17 04/21/17 13:54 15:12 17:59 WBC RBC Hgb Hct MCV MCH MCHC RDW Plt Count MPV Immature Gran % Seg Neutrophils % Lymphocytes % Monocytes % Eosinophils % Basophils % Neutrophils # Lymphocytes # Monocytes # Eosinophils # Basophils # ABG pH 7.32 ABG pCO2 42 ABG pO2 86 ABG HCO3 21 ABG Total CO2 23 ABG O2 Saturation 96 ABG Base Excess -5 L O2 Delivery Device BiPAP Blood Gas Modality BiLevel Inspired O2 100.0 PEEP 6 Pressure Support 14 Sodium Potassium Chloride Carbon Dioxide BUN Creatinine Est GFR ( Amer) Est GFR (Non-Af Amer) BUN/Creatinine Ratio Glucose POC Glucose 195 H 215 H Calculated Osmolality Calcium Magnesium Vancomycin Trough 04/21/17 04/22/17 04/22/17 23:19 06:01 06:01 WBC 8.2 RBC 2.54 L Hgb 8.0 L D Hct 26.0 L MCV 102.4 H MCH 31.5 MCHC 30.8 L RDW 13.8 Plt Count 114 L MPV 11.8 Immature Gran % 1.0 Seg Neutrophils % 80.2 Lymphocytes % 10.3 Monocytes % 7.1 Eosinophils % 1.3 Basophils % 0.1 Neutrophils # 6.6 Lymphocytes # 0.9 Monocytes # 0.6 Eosinophils # 0.1 Basophils # 0.0 ABG pH ABG pCO2 ABG pO2 ABG HCO3 ABG Total CO2 ABG O2 Saturation ABG Base Excess O2 Delivery Device Blood Gas Modality Inspired O2 PEEP Pressure Support Sodium 152 H D Potassium 3.4 L Chloride 110 H Carbon Dioxide 28 BUN 49 H D Creatinine 1.33 H Est GFR ( Amer) > 60 Est GFR (Non-Af Amer) 53 L BUN/Creatinine Ratio 37 H Glucose 165 H POC Glucose 159 H Calculated Osmolality 331 H Calcium 7.6 L Magnesium Vancomycin Trough 04/22/17 04/22/17 04/22/17 06:05 08:34 08:34 WBC RBC Hgb Hct MCV MCH MCHC RDW Plt Count MPV Immature Gran % Seg Neutrophils % Lymphocytes % Monocytes % Eosinophils % Basophils % Neutrophils # Lymphocytes # Monocytes # Eosinophils # Basophils # ABG pH ABG pCO2 ABG pO2 ABG HCO3 ABG Total CO2 ABG O2 Saturation ABG Base Excess O2 Delivery Device Blood Gas Modality Inspired O2 PEEP Pressure Support Sodium Potassium Chloride Carbon Dioxide BUN Creatinine Est GFR ( Amer) Est GFR (Non-Af Amer) BUN/Creatinine Ratio Glucose POC Glucose 208 H Calculated Osmolality Calcium Magnesium 2.2 Vancomycin Trough 6.5 L 04/22/17 12:03 WBC RBC Hgb 12.3 L D Hct 37.7 MCV MCH MCHC RDW Plt Count MPV Immature Gran % Seg Neutrophils % Lymphocytes % Monocytes % Eosinophils % Basophils % Neutrophils # Lymphocytes # Monocytes # Eosinophils # Basophils # ABG pH ABG pCO2 ABG pO2 ABG HCO3 ABG Total CO2 ABG O2 Saturation ABG Base Excess O2 Delivery Device Blood Gas Modality Inspired O2 PEEP Pressure Support Sodium Potassium Chloride Carbon Dioxide BUN Creatinine Est GFR ( Amer) Est GFR (Non-Af Amer) BUN/Creatinine Ratio Glucose POC Glucose Calculated Osmolality Calcium Magnesium Vancomycin Trough - ABG Interpretation ABG results: ABG ABG pH 7.32 pH Units (7.32-7.45) 04/21/17 15:12 ABG pCO2 42 mmHg (35-45) 04/21/17 15:12 ABG pO2 86 mmHg (85-104) 04/21/17 15:12 ABG O2 Saturation 96 % (95-98) 04/21/17 15:12 PT/INR, D-dimer PT 12.8 Seconds (9.4-12.1) H 04/14/17 19:53 Consult Discharge Plan - Plan Referrals: matt, Cardiology [Other] (Office will call patient at home with follow up appointment) Minh Pierce MD [Primary Care Provider] - 04/23/17 11:30 am
[2017-04-22] MEDS ORDERED: *HR* Dextrose 50 % in Water (Syg) 50 ML SYRINGE IVP PRN (16:52)
[2017-04-22] MEDS ORDERED: Ondansetron 4 MG/2 ML VIAL IVP PRN (16:52)
[2017-04-22] MEDS ORDERED: D5% in Water 1,000 ML IVC PRN (16:52)
[2017-04-22] MEDS ORDERED: Dextrose Gel 15 GM PO PRN ×2 (16:52)
[2017-04-22] MEDS ORDERED: Albuterol 2.5 MG/3 ML NEBULIZER IH PRN (16:52)
[2017-04-22] MEDS ORDERED: Nitroglycerin 0.4 MG TAB.SUBL SL PRN (16:52)
[2017-04-22] MEDS ORDERED: Ipratropium/Albuterol Neb 3 ML IH PRN (16:52)
[2017-04-22] MEDS ORDERED: Naloxone 0.4 MG/ML INJ IVP PRN (16:52)
[2017-04-22] MEDS ORDERED: *HR* OxyCODONE/APAP 10/325 TABLET PO PRN (16:52)
[2017-04-22] MEDS ORDERED: *HR* Heparin 5,000 UNIT/ML VIAL SQ SCH (18:00)
[2017-04-22] MEDS: *HR* LORazepam 2 MG/ML VIAL IVP PRN (18:09)
[2017-04-22] MEDS: *HR* Morphine 2 MG/ML SYRINGE IVP PRN (19:38)
[2017-04-22] MEDS ORDERED: metroNIDAZOLE 500 MG TABLET PO SCH (20:00)
[2017-04-22] MEDS ORDERED: clonazePAM 0.5 MG TABLET PO SCH (21:00)
[2017-04-22] MEDS ORDERED: traZODone 50 MG TABLET PO SCH (21:00)
[2017-04-22] MEDS ORDERED: Mirtazapine 15 MG TABLET PO SCH (21:00)
[2017-04-23] MEDS: Insulin LISPRO 300 UNITS/3 ML VIAL SQ SCH ×3 (02:52→12:15)
[2017-04-23] MEDS: *HR* LORazepam 2 MG/ML VIAL IVP PRN (04:14)
[2017-04-23] MEDS: Levalbuterol Neb 1.25 MG/3 ML IH SCH ×2 (04:41→10:30)
[2017-04-23] MEDS ORDERED: MetroNIDAZOLE 500 MG/100 ML 500 MG/100 ML BAG IVPB SCH (06:00)
[2017-04-23] MEDS: Furosemide 40 MG/4 ML VIAL IVP SCH (07:56)
[2017-04-23] MEDS ORDERED: Piperacillin/Tazobactam 3.375 GM/200 ML BAG IVPB SCH (08:00)
[2017-04-23] MEDS: *HR* Morphine 2 MG/ML SYRINGE IVP PRN (08:32)
[2017-04-23] MEDS ORDERED: Multivit/Ca/Min/Fe/FA 1 TAB TABLET PO SCH (09:00)
[2017-04-23] MEDS ORDERED: Pantoprazole 40 MG VIAL IVP SCH (09:00)
[2017-04-23] MEDS ORDERED: Fluticasone Propionate Nasal 50 MCG/SPRAY BOTTLE NS SCH (09:00)
[2017-04-23] MEDS ORDERED: Folic Acid 1 MG TABLET PO SCH (09:00)
[2017-04-23] MEDS ORDERED: Isosorbide MONOnitrate (24 HR) 60 MG TAB.ER.24H PO SCH (09:00)
[2017-04-23] MEDS ORDERED: Aspirin 81 MG TAB.CHEW PO SCH (09:00)
[2017-04-23] MEDS ORDERED: amLODIPine 5 MG TABLET PO SCH (09:00)
[2017-04-23] MEDS: Chlorhexidine Rinse 15 ML MOUTHWASH MM SCH (09:10)
[2017-04-23] MEDS ORDERED: Vancomycin 1,500 MG in D5% in Water 250 ML IVPB SCH (10:00)
--- NOTE | 2017-04-23 10:20 | Discharge Summary ---
<Delaney Hernandez - Last Filed: 04/23/17 10:36> Date of Encounter: 04/23/17 Time of Encounter: 08:15 - Discharge Diagnosis (1) Acute respiratory failure Priority: Primary Status: Acute Qualifiers: Respiratory failure complication: unspecified whether with hypoxia or hypercapnia Qualified Code(s): J96.00 - Acute respiratory failure, unspecified whether with hypoxia or hypercapnia (2) Non-ST elevation [place] (NSTEMI) Priority: Secondary Status: Acute (3) Pneumonia Priority: Secondary Status: Acute Qualifiers: Pneumonia type: due to unspecified organism Laterality: right Lung location: lower lobe of lung Qualified Code(s): J18.1 - Lobar pneumonia, unspecified organism (4) Systolic CHF Priority: Secondary Status: Acute Qualifiers: Congestive heart failure chronicity: acute Qualified Code(s): I50.21 - Acute systolic (congestive) heart failure (5) JOHN (acute kidney injury) Priority: Secondary Status: Acute (6) Coronary artery disease Priority: Secondary Status: Chronic Qualifiers: Coronary Disease-Associated Artery/Lesion type: bypass graft [place] vs. transplanted heart: [place] heart Associated angina: with unstable angina Qualified Code(s): I25.700 - Atherosclerosis of coronary artery bypass graft(s) , unspecified, with unstable angina pectoris (7) C. difficile diarrhea Priority: Secondary Status: Acute (8) Hypertension Priority: Secondary Status: Chronic Qualifiers: Hypertension type: essential hypertension Qualified Code(s): I10 - Essential (primary) hypertension (9) Hypothyroidism Priority: Secondary Status: Chronic Qualifiers: Hypothyroidism type: acquired Qualified Code(s): E03.9 - Hypothyroidism, unspecified (10) Dementia Priority: Secondary Status: Chronic Qualifiers: Dementia type: Alzheimer's disease Alzheimer's disease onset: early-onset Dementia behavioral disturbance: without behavioral disturbance Qualified Code(s): G30.0 - Alzheimer's disease with early onset; F02.80 - Dementia in other diseases classified elsewhere without behavioral disturbance; F02.80 - Dementia in other diseases classified elsewhere without behavioral disturbance; F02.80 - Dementia in other diseases classified elsewhere without behavioral disturbance (11) Peripheral vascular disease Priority: Secondary Status: Chronic - Discharge Medications Home Medications: Allopurinol [Zyloprim] 100 mg PO DAILY #0 01/16/15 [History] Aspirin Enteric Coated [Aspirin EC] 81 mg PO DAILY 01/16/15 [History] Fluticasone Propionate Nasal [Flonase] 2 spray NS DAILY 01/16/15 [History] Isosorbide MONOnitrate (24 HR) [Imdur] 60 mg PO DAILY #0 01/16/15 [History] clonazePAM [Klonopin] 0.5 mg PO HS #0 01/16/15 [History] Levothyroxine [Synthroid] 75 mcg PO 0630 #0 01/17/15 [History] Montelukast [Singulair] 10 mg PO DAILY 01/17/15 [History] Nitroglycerin 0.4 mg SL Q5M PRN #0 01/17/15 [History] Oxycodone HCl/Acetaminophen [Percocet 10-325 mg Tablet] 1 each PO Q6H PRN #0 [History] Pregabalin [Lyrica] 150 mg PO BID #0 01/17/15 [History] Atorvastatin [Lipitor] 40 mg PO HS 05/17/16 [History] Clopidogrel [Plavix] 75 mg PO DAILY 05/17/16 [History] Memantine HCl 10 mg PO BID 05/17/16 [History] Mirtazapine [Remeron] 30 mg PO HS 05/17/16 [History] Multivitamin [Multi-Day Vitamins] 1 each PO DAILY 05/17/16 [History] Pantoprazole Sodium [Protonix] 40 mg PO DAILY 05/17/16 [History] Trazodone HCl 100 - 200 mg PO HS 05/17/16 [History] Tizanidine HCl [Tizanidine HCl] 4 mg PO Q8H 04/15/17 [History] Allergies/Adverse Reactions: 3 Allergy/AdvReac Type Severity Reaction Status Date / Time acetaminophen AdvReac Itching Verified 04/15/17 09:56 [From Darvocet-N] enalaprilat [From Vasotec] AdvReac Weakness Verified 04/15/17 09:56 propoxyphene AdvReac Itching Verified 04/15/17 09:56 [From Darvocet-N] simvastatin [From Zocor] AdvReac Fainting Verified 04/15/17 09:56 Date of admission: 04/14/17 18:39 Primary care physician: Minh Pierce MD Consults: 04/14/17 20:41 Consult to Cardiology [CONS] Routine Comment: Consulting Provider: Cardiology Mary Reason for Consult: NSTEMI Time Notified: 20:41 Call Completed: Yes 04/15/17 08:20 Consult to Cardiac Rehabilitation-Phase1 [CONS] Routine Comment: Reason for Consult: nstemi Call Completed: No 04/17/17 09:59 Consult to Physical Therapy [CONS] Routine Comment: Evaluate, develop and implement POC Reason for Consult: discharge planning. OT [Consult to Occupational Therapy] [CONS] Routine Comment: Evaluate, develop and implement POC Reason for Consult: discharge planning. 04/17/17 10:00 Consult to Bit Tripoler [CONS] Routine Reason for SW Consult: possible need for ECF. 04/17/17 11:40 Consult to Interpret Exam [CONS] Routine Consulting Provider: Nelly Lindsey I Consult to Interpret Exam: Interpret EEG 04/18/17 05:35 Consult to Pulmonology [CONS] Routine Consulting Provider: Pulm Crit Care & Sleep [facility] Reason for Consult: CHF.. CAD with angina pain Call Completed: No 04/18/17 10:18 dietary consult [Consult to Nutrition] [CONS] Routine Comment: Consulting Provider: NUTRITION Reason for Dietary Consult: Tube Feed Start & Manage 04/21/17 11:07 Consult to Palliative Care [CONS] Routine Comment: Consulting Provider: Palliative Care Mary Reason for Consult: Hospice Call Completed: No Discharging clinician: Delaney Hernandez Anticipated date of discharge: 04/23/17 - Patient Status Disposition: Hospice - Medical Facility Condition: Serious Functional capacity at discharge: bed bound Overall status at discharge: patient is not back to baseline - Discharge Instructions Follow Up With: mary Cardiology [Other] (Office will call patient at home with follow up appointment) Minh Pierce MD [Primary Care Provider] - 04/23/17 11:30 am - Diet and Activity Activity: wear oxygen at all times Diet: low fat, low cholesterol Hospital course: Mr. Rosario is a 72 year old male with PMH of CAD status post CABG and stents, hypertension, dementia, hypothyroidism, hyperlipidemia, PVD, AAA status post repair, anxiety and C. difficile diarrhea diagnosed at [facility] three weeks prior to current admission. Patient was transferred from [facility] to [place] on 04/14/17 for NSTEMI with initial troponin at 13.10 on 04/14/17, later peaked at 48.79 on 04/15/17 then downtrended to 12.69 on 04/17/17. LHC on 04/14/17 found severe 1-V CAD S/P CABG 1 of 4 patent bypass grafts with LVEF 60% and a RANDEE was placed in the the proximal Circ. Echo on 04/15/17 found LVEF 60% with mild left ventricular diastolic dysfunction. Neurology was consulted on 04/17/17 for unresponsiveness episode and believed it's unlikely seizure. Patient became anxious on it risk advisor of 04/18/17 with tachypnea, accessory muscle use, and agitation. Patient was transferred to ICU where patient was successfully endotracheally intubated with no complications and put on ventilation support. Troponin was noted to be elevated to 24.39 on 04/18/17. LHC on 04/18/17 found severe 3-V CAD S/P CABG 1 of 4 patent bypass grafts, a previous stent in 2nd Marginal with severe in-stent stenosis, and a RANDEE was placed in the distal Circ. Echo on 04/18/17 found LVEF 15-20% with severe global LV systolic dysfunction, which appears new compared to prior study. Overall conditions/ prognosis remains poor per cardiology. After lengthy discussion with cardiology and critical care team, patient's girlfriend Marnie (also patient's POA) along with patient's daughters all agreed to transition patient's care toward comfort care and palliative care was consulted. Patient was terminally extubated on and has been on BiPAP since. Patient was transferred to medical floor on 04/22/17 and will be discharged to [place] inpatient hospice on 04/23/17. Patient' s girlfriend Marnie expressed her understanding and agreement with the plan. All questions were answered. - Time Spent with Patient Total time spent providing and/or coordinating discharge services: Greater than 30 minutes (44 minutes) - Constitutional Vitals: Temp Pulse Resp BP Pulse Ox 97.4 F L 110 26 125/85 100 04/23/17 08:41 04/23/17 08:41 04/23/17 08:41 04/23/17 08:41 04/23/17 08:41 General appearance: Present: cooperative, mild distress, A&O X 3 - Head Head exam: Present: atraumatic, normocephalic - Eye Eye exam: Present: EOMI, sclera anicteric - ENT Additional comments: On BiPAP - Neck Neck exam general surgery: Present: normal inspection, supple, trachea midline - Respiratory Respiratory exam: Present: wheezes - Cardiovascular Cardiovascular exam: Present: tachycardia - GI/Abdominal GI/Abdominal exam: Present: normal bowel sounds, soft. Absent: tenderness - Extremities Exam Extremities exam: Present: radial pulses palpable and symmetrical. Absent: pedal edema - Neurological Exam Neurological exam: Present: alert, oriented X3, no focal deficits. Absent: facial droop, speech deficit - Skin Skin exam: Present: dry, warm - VTE Documentation of Mechanical Device: Graduated compression elastic hosiery <Cj Ewing - Last Filed: 04/23/17 13:41> Date of Encounter: 04/23/17 - Discharge Diagnosis (1) Acute respiratory failure Status: Acute Qualifiers: Respiratory failure complication: hypoxia Qualified Code(s): J96.01 - Acute respiratory failure with hypoxia (2) Systolic CHF Status: Acute Qualifiers: Congestive heart failure chronicity: acute Qualified Code(s): I50.21 - Acute systolic (congestive) heart failure (3) C. difficile diarrhea Status: Acute (4) Non-ST elevation [place] (NSTEMI) Priority: Primary Status: Acute (5) Coronary artery disease Status: Chronic Qualifiers: Coronary Disease-Associated Artery/Lesion type: bypass graft [place] vs. transplanted heart: [place] heart Associated angina: with unstable angina Qualified Code(s): I25.700 - Atherosclerosis of coronary artery bypass graft(s) , unspecified, with unstable angina pectoris (6) Tobacco abuse Priority: Secondary Status: Chronic (7) Hx of CABG Priority: Secondary Status: Chronic (8) Hypothyroidism Status: Chronic Qualifiers: Hypothyroidism type: acquired Qualified Code(s): E03.9 - Hypothyroidism, unspecified (9) Hypertension Status: Chronic Qualifiers: Hypertension type: essential hypertension Qualified Code(s): I10 - Essential (primary) hypertension (10) Peripheral vascular disease Status: Chronic (11) Depression Priority: Secondary Status: Chronic Qualifiers: Depression Type: major depressive disorder Major depression recurrence: recurrent Active/Remission status: currently active Major depression episode severity: mild Qualified Code(s): F33.0 - Major depressive disorder, recurrent, mild (12) Dementia Status: Chronic Qualifiers: Dementia type: Alzheimer's disease Alzheimer's disease onset: early-onset Dementia behavioral disturbance: without behavioral disturbance Qualified Code(s): G30.0 - Alzheimer's disease with early onset; F02.80 - Dementia in other diseases classified elsewhere without behavioral disturbance; F02.80 - Dementia in other diseases classified elsewhere without behavioral disturbance; F02.80 - Dementia in other diseases classified elsewhere without behavioral disturbance Date of admission: 04/14/17 18:39 Primary care physician: Minh Pierce MD Consults: 04/14/17 20:41 Consult to Cardiology [CONS] Routine Comment: Consulting Provider: Cardiology [place] Reason for Consult: NSTEMI Time Notified: 20:41 Call Completed: Yes 04/15/17 08:20 Consult to Cardiac Rehabilitation-Phase1 [CONS] Routine Comment: Reason for Consult: nstemi Call Completed: No 04/17/17 09:59 Consult to Physical Therapy [CONS] Routine Comment: Evaluate, develop and implement POC Reason for Consult: discharge planning. OT [Consult to Occupational Therapy] [CONS] Routine Comment: Evaluate, develop and implement POC Reason for Consult: discharge planning. 04/17/17 10:00 Consult to Bit Tripoler [CONS] Routine Reason for SW Consult: possible need for ECF. 04/17/17 11:40 Consult to Interpret Exam [CONS] Routine Consulting Provider: Nelly Lindsey I Consult to Interpret Exam: Interpret EEG 04/18/17 05:35 Consult to Pulmonology [CONS] Routine Consulting Provider: Pulm Crit Care & Sleep [place] Reason for Consult: CHF.. CAD with angina pain Call Completed: No 04/18/17 10:18 dietary consult [Consult to Nutrition] [CONS] Routine Comment: Consulting Provider: NUTRITION Reason for Dietary Consult: Tube Feed Start & Manage 04/21/17 11:07 Consult to Palliative Care [CONS] Routine Comment: Consulting Provider: Palliative Care [place] Reason for Consult: Hospice Call Completed: No Hospital course: Mr. Rosario is a 72 year old male - Time Spent with Patient Total time spent providing and/or coordinating discharge services: 39min - Constitutional Vitals: Temp Pulse Resp BP Pulse Ox 97.4 F L 106 22 127/79 99 04/23/17 11:30 04/23/17 11:30 04/23/17 11:30 04/23/17 11:30 04/23/17 11:30 - Attending Attestation I examined this patient and my medical decision-making was reviewed with the Resident Physician on 04/23/17. I agree with the documented findings, disposition and treatment plan as described except to the extent set forth below. Mr Rosario has been admitted for acute NSTEMI. He underwent cardiac cath with stent to [place] circ. He had episode of unresponsiveness and diarrhea and was C diff positive (diagnosed 3 weeks before and he didn't take meds). He was improving but developed chest pain and EKG changes. It improved with nitro but he declined and ultimately was intubated. His EF dropped from 50 to 15%. He self extubated and was transferred to med floor. Today he is having some significant respiratory distress. He is going to transition to Hospice. Exam Alert. Moderate resp distress on bipap after Morphine given Lungs clear currently Heart tachy Abd soft Plan D/C to [facility]/Hospice.
[2017-04-23 11:31] VITALS: BP 127/79
--- NOTE | 2017-04-23 11:49 | Palliative Progress Note ---
Date of Encounter: 04/23/17 Time of Encounter: 09:30 - Assessment and plan (1) JOHN (acute kidney injury) Current Visit: Yes Status: Acute Assessment and plan: We will continue to allow the patient to eat and drink as needed. Is going [facility] hospice today. (2) Acute respiratory failure Current Visit: Yes Status: Acute Assessment and plan: The patient is largely dependent on BiPAP at this time, we will continue this to try to achieve a goal of meeting the family on Sunday. At time the BiPAP will be withdrawn patient will then be Qualifiers: Respiratory failure complication: unspecified whether with hypoxia or hypercapnia Qualified Code(s): J96.00 - Acute respiratory failure, unspecified whether with hypoxia or hypercapnia (3) Anxiety Current Visit: Yes Status: Acute (4) Cardiomyopathy Current Visit: Yes Status: Acute Assessment and plan: 15% ejection fraction is expected the patient will not survive this, she is being transitioned to general inpatient hospice today. Qualifiers: Cardiomyopathy type: ischemic Qualified Code(s): I25.5 - Ischemic cardiomyopathy (5) Counseling regarding advanced care planning and goals of care Current Visit: Yes Status: Acute - Time Spent With Patient Total time spent is greater than 50% in coordination of care (as documented) at patient's floor/unit and/or counseling patient: - Subjective Interval history: Patient is dependent on BiPAP, every time he takes it off to even take a sip of fluids his has a decrease in saturation Is alert and oriented 2 and follows commands. He is able to have a conversation. This point the family and the patient agree that they would like to have aggressive therapy and be transitioned to hospice care. Patient is having no difficulty at this time with pain my he does feel shortness of shortness of breath does have a great deal of anxiety. Tenuous current medications please see the assessment and plan. - Constitutional Vitals: Abnormal lab results RBC 2.54 M/mcL (4.19-5.50) L 04/22/17 06:01 Hgb 12.3 g/dL (12.9-16.9) L D 04/22/17 12:03 MCV 102.4 fL (83.0-100.0) H 04/22/17 06:01 MCHC 30.8 g/dL (31.6-35.5) L 04/22/17 06:01 Plt Count 114 K/mcL (140-400) L 04/22/17 06:01 PT 12.8 Seconds (9.4-12.1) H 04/14/17 19:53 ABG Base Excess -5 mEq/L (-2 to 3) L 04/21/17 15:12 Sodium 152 mEq/L (136-145) H D 04/22/17 06:01 Potassium 3.4 mEq/L (3.5-4.5) L 04/22/17 06:01 Chloride 110 mEq/L (98-109) H 04/22/17 06:01 BUN 49 mg/dL (8-26) H D 04/22/17 06:01 Creatinine 1.33 mg/dL (0.72-1.25) H 04/22/17 06:01 Est GFR (Non-Af Amer) 53 (> 60) L 04/22/17 06:01 BUN/Creatinine Ratio 37 (6-26) H 04/22/17 06:01 Glucose 165 mg/dL (70-99) H 04/22/17 06:01 POC Glucose 179 (58-89) H 04/22/17 14:04 Calculated Osmolality 331 (280-300) H 04/22/17 06:01 Calcium 7.6 mg/dL (8.6-10.8) L 04/22/17 06:01 Troponin I 24.39 ng/mL (0-0.03) H* 04/18/17 09:42 B-Natriuretic Peptide 1785 pg/mL (0-100) H 04/20/17 02:42 Triglycerides 154 mg/dL (< 150) H 04/15/17 02:28 VLDL Cholesterol, Calc 31 mg/dL (< 31) H 04/15/17 02:28 HDL Cholesterol 31 mg/dL (40-59) L 04/15/17 02:28 Vitamin B12 180 pg/mL (213-816) L 04/17/17 10:48 Prolactin 49.22 ng/mL (3.46-19.40) H 04/16/17 09:42 Ur Specific [place] >= 1.099 (1.010-1.025) H 04/18/17 16:12 Urine Blood Large (Negative) H 04/18/17 16:12 Urine Microscopic RBC 5-15 per hpf (0-3) H 04/18/17 16:12 Urine Microscopic WBC 3-5 per hpf (0-3) H 04/18/17 16:12 Vancomycin Trough 6.5 mcg/mL (10-20) L 04/22/17 08:34 - Head Head exam: Present: atraumatic, normal inspection - Eye Eye exam: Present: normal appearance - ENT ENT exam: Present: mucous membranes moist - Neck Neck exam: Present: normal inspection - Respiratory Respiratory exam: Present: decreased breath sounds - Cardiovascular Cardiovascular exam: Present: RRR, tachycardia - GI/Abdominal GI/Abdominal exam: Present: normal bowel sounds, soft. Absent: tenderness - Extremities Exam Extremities exam: Present: pedal edema. Absent: normal inspection, tenderness - Neurological Exam Neurological exam: Present: alert - Psychiatric Psychiatric exam: Absent: agitated, anxious - Skin Skin exam: Present: dry, warm Palliative Quality Palliative Quality: Screen for Code Status: Yes, Screen for Goals of Care: Yes, Screen for Pain: Yes, If Pain Regimen Started, Initiate Bowel Regimen: NA, Screen for Nausea/Vomitting: Yes Code Status: 04/14/17 20:06 Resuscitation Status: Active [RES] Routine Comment: Resuscitation Status: Full Code 04/21/17 11:08 Resuscitation Status: Active [RES] Routine Comment: Resuscitation Status: DNR-Comfort Care 04/22/17 13:09 Resuscitation Status: Active [RES] Routine Comment: Resuscitation Status: [id number] - Labs CBC & Chem 7: 04/22/17 12:03 04/22/17 06:01 Labs: Laboratory Results - last 24 hr 04/22/17 04/22/17 12:03 14:04 Hgb 12.3 L D Hct 37.7 POC Glucose 179 H - ABG Interpretation ABG results: ABG ABG pH 7.32 pH Units (7.32-7.45) 04/21/17 15:12 ABG pCO2 42 mmHg (35-45) 04/21/17 15:12 ABG pO2 86 mmHg (85-104) 04/21/17 15:12 ABG O2 Saturation 96 % (95-98) 04/21/17 15:12 PT/INR, D-dimer PT 12.8 Seconds (9.4-12.1) H 04/14/17 19:53 Consult Discharge Plan - Plan Referrals: matt, Cardiology [Other] (Office will call patient at home with follow up appointment) Minh Pierce MD [Primary Care Provider] - 04/23/17 11:30 am
[2017-04-23] MEDS ORDERED: Aminoglycoside Consult 1 EACH MC ONE (12:22)
[2017-04-23] MEDS ORDERED: Cefepime HCl 2,000 MG in Water for inj. (sterile) 20 ML IVP SCH (16:00)
== END 2017-04-23 12:23 | disposition hospice, inpatient (51) | DRG 246 ==
LOC: 2NNU 18:39 → ICNU 04-18 04:46 → 2ANU 04-22 16:23
PROVIDERS: ADMIT Hospitalist; ATTEND Internal Medicine

== ENCOUNTER 2017-04-23 11:12 | Inpatient (IN) ==
[2017-04-23] MEDS ORDERED: Atropine Sulfate 1% 40 DROP/2 ML BOTTLE SL PRN (12:53)
[2017-04-23] MEDS ORDERED: Haloperidol Oral Conc 10 MG/5 ML UDC PO PRN (12:53)
[2017-04-23] MEDS ORDERED: *HR* LORazepam 1 MG TABLET PO PRN (12:53)
[2017-04-23] MEDS ORDERED: Morphine Oral CONC 5 MG/0.25 ML ORAL.SYG PO SCH (13:00)
[2017-04-23] MEDS ORDERED: Albuterol 2.5 MG/3 ML NEBULIZER IH PRN (13:02)
[2017-04-23] MEDS ORDERED: Ipratropium/Albuterol Neb 3 ML IH PRN (13:02)
[2017-04-23] MEDS ORDERED: Lacri-Lube 3.5 GM TUBE BOTH EYES PRN (13:03)
--- NOTE | 2017-04-23 13:12 | Event Note ---
Date of Encounter: 04/23/17 Time of Encounter: 13:10 Hospice medical technologist chief certification of terminal illness: Hospice benefit. Start: 04/23/2017 Hospice benefit. In: +90 days Palliative performance scale: 30% History: Patient status post [place], cardiomyopathy with an ejection fraction of 15% extubated on BiPAP. Patient is 100% dependent on BiPAP and this will be withdrawn after the patient's able to meet with his family is the on the . She has as comorbidities, aortic aneurysm, known coronary artery disease, GI bleed, hypertension and peripheral vascular disease as well as thyroid disease. At this time the patient is completely BiPAP dependent, this will be withdrawn as noted above, patient is also really not able to eat or drink due to his BiPAP dependence therefore I believe that These findings support a life expectancy of 6 months or less. I attest that I have compose the above narrative based on my review of the patient's medical records, and or on my examination of the patient. Farshad Vidal M.D. Associate medical reviewer. [facility]
[2017-04-23] MEDS: *HR* LORazepam Oral Conc 2 MG/ML PO PRN ×3 (14:49→20:52)
[2017-04-23] MEDS: Morphine Oral CONC 5 MG/0.25 ML ORAL.SYG PO PRN ×6 (14:49→23:59)
[2017-04-23] MEDS: Sennosides/Docusate Sodium TABLET PO SCH (20:28)
[2017-04-23] MEDS: clonazePAM 0.5 MG TABLET PO SCH (20:29)
[2017-04-23] MEDS: Bisacodyl 10 MG RECTAL SUPPOSITORY RC SCH (20:29)
[2017-04-24] MEDS: Morphine Oral CONC 5 MG/0.25 ML ORAL.SYG PO PRN ×4 (04:29→20:00)
[2017-04-24] MEDS: *HR* LORazepam Oral Conc 2 MG/ML PO PRN ×4 (04:29→20:00)
--- NOTE | 2017-04-24 08:55 | Pallative History & Physical ---
<Abigail Dawn - Last Filed: 04/24/17 09:53> Date of Encounter: 04/24/17 Time of Encounter: 08:53 Assessment and Plan (1) Counseling regarding advanced care planning and goals of care Current visit: No Status: Acute The patient is currently 100% Bipap dependent. Family meeting is on schedule for tomorrow. After which the patient will be taken off bipap and comfort measures given. The patient's only complaint is the discomfort of the Bipap. His daughter is at bedside and had no complaints and reported that he was able to have ice scream yesterday. She also reported that the bipap was taken off yesterday and is oxygen saturation quickly decreased to 70s. He has not been able to eat of drink anything else. His nurse reported that multiple members of the patient's family visited him last evening and he then became tachypnic with RR 50s. Multiple doses of morphine and ativan were given for 3hrs duration. (2) Acute respiratory failure Current visit: No Status: Acute The patient is 100% Bipap dependent. Qualifiers: Respiratory failure complication: hypoxia Qualified Code(s): J96.01 - Acute respiratory failure with hypoxia (3) Cardiomyopathy Current visit: No Status: Acute The patient has a past medical history of status post [place], cardiomyopathy with an EF of 15% Qualifiers: Cardiomyopathy type: ischemic Qualified Code(s): I25.5 - Ischemic cardiomyopathy Internal Medicine - H&P: HPI Chief complaint: difficulty breathing Admitted From: Direct Admit Plans for Post Hospital Care: at Medical Facility History of present illness: Mr. Rosario is a 72 year old male with a past medical history of status post [place], cardiomyopathy with an EF of 15% who was admitted with shortness of breathe and is bipap 100% dependent. He is not able to eat or drink due to oxygen desaturation whenever the bipap is off. He is to have a family meeting tomorrow. After which the bipap will be removed and comfort measures given to the patient whom we expect to pass shortly after. His family is in agreement with the plan. His only complaint is the discomfort of the bipap. Past Med Surg Social Fam HX - Past Medical History Medical history: aortic aneurysm, coronary artery disease, GERD, GI bleed, hypertension, myocardial infarction, peripheral artery disease, thyroid disease Psychiatric history: no psych history - Past Surgical History Surgical History: coronary bypass (CABG), LE Bypass - Social History Smoking Status: Current every day smoker Alcohol use: none Drug use: none - Family History Brother Family Member Ethnicity: Non- Living Status: Hx Family Cardiac Disorders: Yes Hx Family Respiratory Disorders: No Hx Family Cancer: Yes Hx Family GI Disorders: No Hx Family Endocrine Disorder: Yes (MOTHER DM) Hx Family Neuromuscular Disorders: No Hx Family Neurologic Disorders: No Hx Family HEENT Disorders: No Hx Family Autoimmune Disorders: No Internal Medicine - H&P: Meds Allopurinol [Zyloprim] 100 mg PO DAILY #0 01/16/15 [History] Aspirin Enteric Coated [Aspirin EC] 81 mg PO DAILY 01/16/15 [History] Fluticasone Propionate Nasal [Flonase] 2 spray NS DAILY 01/16/15 [History] clonazePAM [Klonopin] 0.5 mg PO HS #0 01/16/15 [History] Levothyroxine [Synthroid] 75 mcg PO 0630 #0 01/17/15 [History] Montelukast [Singulair] 10 mg PO DAILY 01/17/15 [History] Nitroglycerin 0.4 mg SL Q5M PRN #0 01/17/15 [History] Oxycodone HCl/Acetaminophen [Percocet 10-325 mg Tablet] 1 each PO Q6H PRN #0 [History] Pregabalin [Lyrica] 150 mg PO BID #0 01/17/15 [History] Atorvastatin [Lipitor] 40 mg PO HS 05/17/16 [History] Clopidogrel [Plavix] 75 mg PO DAILY 05/17/16 [History] Memantine HCl 10 mg PO BID 05/17/16 [History] Mirtazapine [Remeron] 30 mg PO HS 05/17/16 [History] Multivitamin [Multi-Day Vitamins] 1 each PO DAILY 05/17/16 [History] Trazodone HCl 100 - 200 mg PO HS 05/17/16 [History] Cyclobenzaprine HCl 5 mg PO DAILY PRN 04/23/17 [History] Indomethacin [Indocin] 25 mg PO BIDWM 04/23/17 [History] Isosorbide MONOnitrate (24 HR) [Imdur] 30 mg PO DAILY 04/23/17 [History] Metoprolol XL (24 HR) Succ [Toprol XL] 25 mg PO DAILY 04/23/17 [History] Omeprazole [PriLOSEC] 40 mg PO DAILY 04/23/17 [History] Tiotropium [Spiriva] 1 puff IH DAILY 04/23/17 [History] 3 Allergy/AdvReac Type Severity Reaction Status Date / Time acetaminophen AdvReac Itching Verified 04/15/17 09:56 [From Darvocet-N] enalaprilat [From Vasotec] AdvReac Weakness Verified 04/15/17 09:56 propoxyphene AdvReac Itching Verified 04/15/17 09:56 [From Darvocet-N] simvastatin [From Zocor] AdvReac Fainting Verified 04/15/17 09:56 - Constitutional Constitutional ROS PAL: no chills, no fever(s) - Cardiovascular Cardiovascular ROS: no chest pain, no palpitations - Respiratory Respiratory: dyspnea, no cough, no wheezing - Gastrointestinal Gastrointestinal: no abdominal pain, no nausea, no vomiting - Integumentary ROS Integumentary: dry skin - Neurological Neurological ROS: no confusion, no headache(s) - Psychiatric Psychiatric general PM: no confusion Palliative Care-Exam - Constitutional Vitals: Temp Pulse Resp BP Pulse Ox 98.3 F 99 21 138/92 100 04/24/17 07:07 04/24/17 07:07 04/24/17 07:07 04/24/17 07:07 04/24/17 07:07 General appearance: Present: cooperative, no acute distress, obese - Head Head Exam: Present: atraumatic, normocephalic - Eye Eye exam: Present: normal appearance. Absent: scleral icterus - ENT ENT exam: Present: mucous membranes moist - Neck Neck exam: Absent: lymphadenopathy, tenderness - Respiratory Respiratory exam: Absent: rhonchi, wheezes - Cardiovascular Cardiovascular exam: Present: RRR. Absent: clicks - GI/Abdominal Exam GI/Abdominal exam: Present: normal bowel sounds, soft. Absent: guarding, tenderness - Extremities Exam Extremities exam: Present: normal inspection - Neurological Exam Neurological exam: Present: alert, oriented X3 Palliative Quality Palliative Quality: Screen for Code Status: No, Screen for Goals of Care: Yes, Screen for Pain: Yes, Screen for Nausea/Vomitting: Yes Code Status: 04/23/17 12:47 Resuscitation Status: Active [RES] Stat Comment: Resuscitation Status: DNR-Comfort Care <Farshad Vidal - Last Filed: 04/24/17 10:46> Date of Encounter: 04/24/17 Internal Medicine - H&P: HPI History of present illness: Mr. Rosario is a 72 year old male Palliative Care-Exam - Constitutional Vitals: Temp Pulse Resp BP Pulse Ox 98.3 F 99 21 138/92 100 04/24/17 07:07 04/24/17 07:07 04/24/17 07:07 04/24/17 07:07 04/24/17 07:07 Palliative Quality Code Status: 04/23/17 12:47 Resuscitation Status: Active [RES] Stat Comment: Resuscitation Status: DNR-Comfort Care - Attending Attestation I examined this patient and my medical decision-making was reviewed with the Resident Physician. I agree with the documented findings, disposition and treatment plan as described except to the extent set forth below.
[2017-04-24] MEDS: Isosorbide MONOnitrate (24 HR) 60 MG TAB.ER.24H PO SCH (10:01)
[2017-04-24] MEDS: Sennosides/Docusate Sodium TABLET PO SCH ×2 (10:02→21:30)
--- NOTE | 2017-04-24 11:11 | Electrocardiograph Report ---
[place] [id number] Test Date: 2017-04-22 Pat Name: Juan Diego Rosario Department: 112 Room: 2A Gender: M [employer] Sales Representative: : 1945 Requested By: Farshad Vidal Order Number: [id number] Reading MD: Brendan Valerio DO Measurements Intervals [place] Rate: 125 P: 68 OK: 160 QRS: 56 QRSD: 100 T: 89 QT: 311 QTc: 385 Interpretive Statements SINUS TACHYCARDIA WITH FREQUENT SUPRAVENTRICULAR PREMATURE COMPLEXES LOW QRS VOLTAGE IN EXTREMITY LEADS BASELINE ARTIFACT Electronically Signed On 04-24-2017 11:10:35 EST by Brendan Valerio DO
[2017-04-24] MEDS: clonazePAM 0.5 MG TABLET PO SCH (20:00)
[2017-04-24] MEDS: Bisacodyl 10 MG RECTAL SUPPOSITORY RC SCH (21:30)
[2017-04-25] MEDS: *HR* LORazepam Oral Conc 2 MG/ML PO PRN ×6 (00:23→19:07)
[2017-04-25] MEDS: Morphine Oral CONC 5 MG/0.25 ML ORAL.SYG PO PRN ×3 (00:23→09:40)
[2017-04-25] MEDS: Sennosides/Docusate Sodium TABLET PO SCH ×2 (09:44→19:56)
[2017-04-25] MEDS: Isosorbide MONOnitrate (24 HR) 60 MG TAB.ER.24H PO SCH (09:44)
[2017-04-25] MEDS ORDERED: Haloperidol Oral Conc 10 MG/5 ML UDC PO ONE (09:47)
[2017-04-25] MEDS ORDERED: *HR* LORazepam Oral Conc 2 MG/ML SL ONE (09:49)
[2017-04-25] MEDS ORDERED: *HR* Morphine Soln 10 MG/5 ML UDC PO ONE (09:51)
[2017-04-25] MEDS ORDERED: Morphine Oral CONC 5 MG/0.25 ML ORAL.SYG PO PRN (09:54)
[2017-04-25] MEDS ORDERED: Haloperidol Oral Conc 10 MG/5 ML UDC PO PRN (09:54)
--- NOTE | 2017-04-25 10:17 | Palliative Progress Note ---
Date of Encounter: 04/25/17 Time of Encounter: 09:45 - Assessment and plan (1) Coronary artery disease Current Visit: No Status: Chronic Assessment and plan: 15% ejection fraction no further treatment is anticipated for this. Continue oral medications. Qualifiers: Coronary Disease-Associated Artery/Lesion type: bypass graft [place] vs. transplanted heart: [place] heart Associated angina: with unstable angina Qualified Code(s): I25.700 - Atherosclerosis of coronary artery bypass graft(s) , unspecified, with unstable angina pectoris (2) Non-ST elevation RI (NSTEMI) Current Visit: No Status: Acute Assessment and plan: As already noted we will continue oral medications patient does have a 15% ejection fraction (3) Acute respiratory failure Current Visit: No Status: Acute Assessment and plan: BiPAP has been withdrawn at patient's request. Patient is doing quite well with nasal cannula will increase medications for the possibility of increased shortness of breath and/or any discomfort. Qualifiers: Respiratory failure complication: hypoxia Qualified Code(s): J96.01 - Acute respiratory failure with hypoxia (4) Counseling regarding advanced care planning and goals of care Current Visit: No Status: Acute Assessment and plan: DNR comfort care, patient is under general inpatient hospice care at this time. Patient has requested the BiPAP now be stopped and the BiPAP has been withdrawn to nasal cannula patient's tolerating this quite well eating and drinking normally and conversing with family. Patient will be increased for the potential of increased anxiety, breathlessness and/or discomfort. - Time Spent With Patient Total time spent is greater than 50% in coordination of care (as documented) at patient's floor/unit and/or counseling patient: - Subjective Interval history: the patient is doing very well this am, requesting rest from mask. He is tolerating nasal cannula so well we will not replace the mask. He given increased medications for discomfort and/or dyspnea if these are not these are needed. He is anticipating meeting with family later today. - Constitutional Vitals: Abnormal lab results POC Glucose 193 (58-89) H 04/23/17 18:02 General appearance: Present: no acute distress - Head Head exam: Present: atraumatic, normal inspection - Respiratory Respiratory exam: Present: decreased breath sounds - Cardiovascular Cardiovascular exam: Present: tachycardia - GI/Abdominal GI/Abdominal exam: Present: soft. Absent: tenderness - Extremities Exam Extremities exam: Absent: tenderness - Neurological Exam Neurological exam: Present: alert - Psychiatric Psychiatric exam: Absent: agitated, anxious - Skin Skin exam: Present: dry, warm Palliative Quality Palliative Quality: Screen for Code Status: Yes, Screen for Goals of Care: Yes, Screen for Pain: Yes, If Pain Regimen Started, Initiate Bowel Regimen: Yes, Screen for Nausea/Vomitting: Yes Code Status: 04/23/17 12:47 Resuscitation Status: Active [RES] Stat Comment: Resuscitation Status: DNR-Comfort Care Consult Discharge Plan - Plan Referrals: Minh Pierce MD [Primary Care Provider] -
[2017-04-25] MEDS: *HR* Morphine Soln 10 MG/5 ML UDC PO PRN ×4 (12:53→22:51)
[2017-04-25] MEDS: clonazePAM 0.5 MG TABLET PO SCH (19:56)
[2017-04-25] MEDS: Bisacodyl 10 MG RECTAL SUPPOSITORY RC SCH (19:56)
[2017-04-25 23:34] VITALS: BP 111/71
[2017-04-26] MEDS: *HR* Morphine Soln 10 MG/5 ML UDC PO PRN ×3 (00:55→05:53)
[2017-04-26] MEDS: *HR* LORazepam Oral Conc 2 MG/ML PO PRN (04:22)
--- NOTE | 2017-04-26 07:38 | Death Note ---
Discharge Sum: Summary - Date and Time Date of admission: 04/23/17 12:32 Date of : 04/26/17 Time of : 06:44 - Summary Details: The patient was brought onto the general inpatient service for relief of dyspnea secondary to his cardiomyopathy. His BiPAP was removed yesterday morning and patient's in's were addressed aggressively. Of note patient underwent sabianist yesterday afternoon with family present, patient passed quietly and comfortably this morning at 0 644 with family present. Cause of is respiratory failure for days, secondary to cardiomyopathy years. Morbidities AAA, E, PAD, thyroid disease, She was a smoker - Additional Data Confirmation of as documented by pronouncing clinician: no pulse, no respirations, no heart sounds Family: at bedside Attending/PCP notified?: Yes Attending physician: Farshad Vidal MD Was code activated?: No Autopsy requested?: No credit union field examiner notified?: No Organ bank notified?: Yes Advance directives: Yes Hospice patient?: Yes Discharge Sum: Diag - PCOD Probable Cause of : Respiratory arrest Discharge Sum: Prov - Provider Primary care physician: Minh Pierce MD Consults: 04/23/17 12:47 Consult to Palliative Care [CONS] Routine Comment: Consulting Provider: Palliative Care Mary Reason for Consult: coverage Call Completed: Yes
== END 2017-04-26 06:44 | disposition expired | DRG 302 ==
LOC: 2ANU 12:32
PROVIDERS: ADMIT Family Medicine Hospice and Palliative Medicine; ATTEND Family Medicine Hospice and Palliative Medicine